=== PATIENT | female | born 1965 | race Hispanic/Latino ===

== ENCOUNTER 2016-10-26 15:39 | Emergency (ER) | payer MEDICAID ==
[2016-10-26 15:48] VITALS: BMI 19.5
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
[2016-10-26 16:10] LABS: ADD MANUAL DIFF? NO
[2016-10-26 16:29] LABS: BASO # 0.01 K/mm3 (0.0-2.0); BASO % 0.2 % (0.0-3.0); EOS % 0.2 % (1.5-5.0); GRAN # 3.42 (1.4-6.5); GRAN % 59.7 % (50.0-68.0); LYMPH # 1.9 (1.2-3.4); LYMPH % 32.9 % (22.0-35.0); MEAN CELL VOLUME 95.1 fL (80.0-105.0); MEAN CORPUSCULAR HEMOGLOBIN 33.2 pg (25.0-35.0); MEAN CORPUSCULAR HGB CONC 34.9 g/dl (31.0-37.0); MEAN PLATELET VOLUME 9.4 fl (7.0-11.0); MONO # 0.4 (0.1-0.6); PLATELET COUNT 331 10^3/uL (120.0-450.0); RED CELL DISTRIBUTION WIDTH 12.2 % (11.5-14.5); WHITE BLOOD COUNT 5.7 10^3/ul (4.5-11.0)
[2016-10-26 16:32] LABS: ALB/GLOB RATIO 1.4 (1.1-1.8); ALKALINE PHOSPHATASE 46 U/L (38-133); ALT/SGPT 21 U/L (7-56); AST/SGOT 23 U/L (15-39); BILIRUBIN,TOTAL 0.8 mg/dL (0.2-1.3); BLOOD UREA NITROGEN 10 mg/dL (7-21); CALCIUM 10.3 mg/dL (8.4-10.5); CARBON DIOXIDE 24 mmol/L (21-33); CHLORIDE 98 mmol/L (98-107); GFR AFRICAN-AMERICAN > 60; GLUCOSE,RANDOM 124 mg/dL (70-110); POTASSIUM 3.6 mmol/L (3.6-5.0); SODIUM 139 mmol/L (132-148); TOTAL PROTEIN 8.3 g/dL (5.8-8.3)
--- NOTE | 2016-10-26 17:57 | RAD ---
PROCEDURE: CHEST RADIOGRAPH, 1 VIEW HISTORY: psych eval COMPARISON: 12/15/2014 FINDINGS: LUNGS: The lungs are well inflated and clear. PLEURA: No pleural effusions or pneumothorax. CARDIOVASCULAR: Normal. OSSEOUS STRUCTURES: No significant abnormalities. VISUALIZED UPPER ABDOMEN: Normal. OTHER FINDINGS: None. IMPRESSION: No active pulmonary disease.
[2016-10-26 20:58] LABS: URINE BILIRUBIN NEGATIVE (NEGATIVE); URINE BLOOD TRACE-INTACT (NEGATIVE); URINE GLUCOSE (UA) NEGATIVE (NEGATIVE); URINE KETONE NEGATIVE (NEGATIVE); URINE LEUKOCYTE ESTERASE TRACE Leu/uL (NEGATIVE); URINE PROTEIN NEGATIVE mg/dL (<30 mg/dL); URINE UROBILINOGEN 0.2 E.U./dL (<1 E.U./dL)
[2016-10-26 21:00] LABS: URINE APPEARANCE CLEAR (CLEAR); URINE COLOR YELLOW (YELLOW)
[2016-10-26 21:04] LABS: URINE BACTERIA MOD (NEG)
[2016-10-27 00:50] VITALS: BP 105/70; PULSE 77; RESP 18; TEMP 98.2; O2SAT 98
--- NOTE | 2016-10-27 13:03 | CARD ---
APPROVED REPORT EKG Measurement Heart [id number] 150P10 [id number] <Conclusion> Normal sinus rhythm Normal ECG
== END 2016-10-27 01:10 | disposition short-term general hospital (02) ==
LOC: ED 15:39
DX: F31.9 Bipolar disorder, unspecified (principal); N39.0 Urinary tract infection, site not specified

== ENCOUNTER 2017-11-24 18:54 | Inpatient (IN) | payer MEDICAID ==
[2017-11-24 19:48] LABS: BASO # 0.02 K/mm3 (0.0-2.0); BASO % 0.3 % (0.0-3.0); EOS # 0.1 (0.0-0.7); EOS % 1.3 % (1.5-5.0); GRAN # 3.14 (1.4-6.5); GRAN % 46.9 % (50.0-68.0); LYMPH # 3.2 (1.2-3.4); LYMPH % 47.5 % (22.0-35.0); MEAN CELL VOLUME 101.4 fl (80.0-105.0); MEAN CORPUSCULAR HEMOGLOBIN 34.6 pg (25.0-35.0); MEAN CORPUSCULAR HGB CONC 34.1 g/dl (31.0-37.0); MEAN PLATELET VOLUME 9.1 fl (7.0-11.0); MONO # 0.3 (0.1-0.6); RBC 3.47 10^6/uL (3.5-6.1); RED CELL DISTRIBUTION WIDTH 12.6 % (11.5-14.5); WHITE BLOOD COUNT 6.7 10^3/ul (4.5-11.0)
[2017-11-24] MEDS ORDERED: Naloxone 2.4 MG in Sodium Chloride 0.9% 244 ML IV ONE (19:48)
--- NOTE | 2017-11-24 19:58 | ED PDOC ---
Arrival/HPI - General Chief Complaint: Substance Abuse Time Seen by Provider: 11/24/17 19:13 Historian: Patient, EMS - History of Present Illness Narrative History of Present Illness (Text): 11/24/17 19:56 52 year old female, with a history of substance abuse, presents to the Emergency department status post being found unresponsive at her residence. EMS gave the patient Narcan and she woke up. Patient is a poor historian and states she only feels nauseous. Patient denies any fever, chills, chest pain, shortness of breath, vomiting, diarrhea, urinary symptoms, back pain, neck pain , headache, dizziness, or any other complaints. Time/Duration: Prior to Arrival Symptom Onset: Sudden Symptom Course: Improving Context: Home Past Medical History - Provider Review Nursing Documentation Reviewed: Yes - Infectious Disease Hx of Infectious Diseases: None - Tetanus Immunization Tetanus Immunization: Unknown - Past Medical History Past Medical History: No Previous - Cardiac Hx Cardiac Disorders: No - Pulmonary Hx Bronchitis: Yes Hx Chronic Obstructive Pulmonary Disease (COPD): Yes Hx Emphysema: Yes - Neurological Hx Neurological Disorder: No - HEENT Hx HEENT Disorder: No - Renal Hx Renal Disorder: No - Endocrine/Metabolic Hx Endocrine Disorders: No - Hematological/Oncological Hx Hepatitis C: Yes - Integumentary Hx Dermatological Disorder: No - Musculoskeletal/Rheumatological Hx Arthritis: Yes Hx Osteoarthritis: Yes - Gastrointestinal Hx Gastroesophageal Reflux: Yes - Genitourinary/Gynecological Hx Genitourinary Disorders: No - Psychiatric Hx Anxiety: Yes Hx Bipolar Disorder: Yes Hx Depression: Yes Hx Substance Use: Yes ("I don't want to talk about it") - Surgical History Hx Cholecystectomy: Yes - Anesthesia Hx Anesthesia Reactions: Yes Hx Malignant Hyperthermia: No - Suicidal Assessment Feels Threatened In Home Enviroment: No Family/Social History - Physician Review Nursing Documentation Reviewed: Yes Family/Social History: Unknown Family HX Smoking Status: Heavy Smoker > 10 Cigarettes Daily Hx Alcohol Use: No Hx Substance Use: Yes ("I don't want to talk about it") Hx Substance Use Treatment: No Allergies/Home Meds Allergies/Adverse Reactions: Allergies aspirin Allergy (Mild, Verified 10/26/16 15:48) RASH Penicillins Allergy (Verified 10/26/16 15:48) RASH ibuprofen [From Motrin] Adverse Reaction (Verified 10/26/16 15:48) ANAPHYLAXIS NSAIDS (Non-Steroidal Anti-Inflamma Adverse Reaction (Verified 10/26/16 15:48) ANAPHYLAXIS quetiapine fumarate [From Seroquel] Adverse Reaction (Verified 10/26/16 15:48) SHORTNESS OF BREATH Review of Systems - Physician Review All systems were reviewed & negative as marked: Yes - Review of Systems Constitutional: absent: Fevers, Night Sweats Respiratory: absent: SOB Cardiovascular: absent: Chest Pain Gastrointestinal: Nausea. absent: Diarrhea, Vomiting Genitourinary Female: absent: Dysuria Musculoskeletal: absent: Back Pain, Neck Pain Neurological: absent: Headache, Dizziness Physical Exam Vital Signs Reviewed: Yes Vital Signs Pulse Resp BP Pulse Ox 11/25/17 00:33 89 18 118/81 100 11/24/17 22:17 81 18 122/71 100 11/24/17 21:47 83 18 116/79 100 11/24/17 20:30 80 18 108/75 100 - Systems Exam Head: Present: Atraumatic, Normocephalic Pupils: Present: PERRL Extroacular Muscles: Present: EOMI Conjunctiva: Present: Normal Mouth: Present: Moist Mucous Membranes Neck: Present: Normal Range of Motion Respiratory/Chest: Present: Clear to Auscultation, Good Air Exchange. No: Respiratory Distress, Accessory Muscle Use Cardiovascular: Present: Regular Rate and Rhythm, Normal S1, S2. No: Murmurs Abdomen: No: Tenderness, Distention, Peritoneal Signs Back: Present: Normal Inspection Upper Extremity: Present: Normal Inspection. No: Cyanosis, Edema Lower Extremity: Present: Normal Inspection. No: Edema Neurological: Present: GCS=15, CN II-XII Intact, Speech Normal Skin: Present: Warm, Dry, Normal Color. No: Rashes Psychiatric: Present: Oriented x 3, Lethargic Medical Decision Making ED Course and Treatment: 11/24/17 19:59 Impression: 52 year old female presents to the Emergency department status post being found unresponsive by EMS and waking up after receiving Narcan. Differential Diagnosis included but are not limited to: substance abuse Plan: -- Chest xray -- EKG -- Urinalysis -- Labs -- Narcan, Zofran -- Reassess and disposition Progress Notes: EKG: Ordered, reviewed, and independently interpreted the EKG. Rate : 87 BPM Rhythm : NSR Interpretation : No ST-segment elevations or depressions, no T-wave inversions, normal intervals. Comparison : No previous EKG for comparison. 11/25/17 00:08: Chest X-ray read and interpreted by me shows no acute disease. case d/w dr laird accepts to icu 11/25/17 05:46 - Lab Interpretations Lab Results: 11/24/17 19:35 11/24/17 19:35 Lab Results 11/24/17 22:39: Urine Opiates Screen Positive H, Urine Methadone Screen Negative , Ur Barbiturates Screen Negative, Ur Phencyclidine Scrn Negative, Ur Amphetamines Screen Negative, U Benzodiazepines Scrn Positive, U Oth Cocaine Metabols Negative, U Cannabinoids Screen Negative 11/24/17 22:39: Urine Color Yellow, Urine Appearance Clear, Urine pH 6.0, Ur Specific [place] 1.020, Urine Protein Negative, Urine Glucose (UA) Negative, Urine Ketones Negative, Urine Blood Negative, Urine Nitrate Negative, Urine Bilirubin Negative, Urine Urobilinogen 0.2, Ur Leukocyte Esterase Small H, Urine RBC Negative, Urine WBC 1 - 3, Ur Epithelial Cells 1 - 3, Urine Bacteria Trace 11/24/17 21:45: pCO2 47 H, pO2 122.0 H, HCO3 27.2, ABG pH 7.37, ABG Total CO2 28.6 H, ABG O2 Saturation 99.6 H, ABG O2 Content 14.8 L, ABG Base Excess 1.4, ABG Hemoglobin 11.3 L, ABG Carboxyhemoglobin 6.6 H, POC ABG HHb (Measured) 0.4, ABG Methemoglobin 1.3, ABG O2 Capacity 14.9 L, Hgb O2 Saturation 91.8 L, FiO2 28.0 11/24/17 19:35: Alcohol, Quantitative 98 H 11/24/17 19:35: Salicylates < 1 L, Acetaminophen < 10.0 L 11/24/17 19:35: Sodium 144, Potassium 3.1 L, Chloride 101, Carbon Dioxide 27, Anion Gap 19, BUN 6 L, Creatinine 0.5 L, Est GFR ( Amer) > 60, Est GFR ( Non-Af Amer) > 60, Random Glucose 122 H, Calcium 8.8, Magnesium 1.9, Total Bilirubin 0.2, AST 36, ALT 29, Alkaline Phosphatase 49, Total Protein 6.9, Albumin 4.2, Globulin 2.7, Albumin/Globulin Ratio 1.6 11/24/17 19:35: WBC 6.7, RBC 3.47 L, Hgb 12.0, Hct 35.2 L, MCV 101.4, MCH 34.6, MCHC 34.1, RDW 12.6, Plt Count 305, MPV 9.1, Gran % 46.9 L, Lymph % (Auto) 47.5 H, [place] % (Auto) 4.0, Eos % (Auto) 1.3 L, Baso % (Auto) 0.3, Gran # 3.14, Lymph # (Auto) 3.2, [place] # (Auto) 0.3, Eos # (Auto) 0.1, Baso # (Auto) 0.02 - RAD Interpretation Radiology Orders: 11/24/17 19:15 CHEST PORTABLE [RAD] Stat - Medication Orders Current Medication Orders: Chlorpromazine (Thorazine) 100 mg PO HS LONNIE PRN Reason: Protocol Last Admin: 11/25/17 03:00 Dose: 100 mg Behavioural Document 11/25/17 03:00 MHA (Rec: 11/25/17 03:27 MHA [id number]) Maintenance Maintenance Dose Yes Nonmedicinal Nonmedicinal Interventions Redirect Activity Give food/fluids Behavior Behavior for Medication: Anxiety Insomnia Heparin Sodium (Porcine) (Heparin) 5,000 units SC Q12 LONNIE PRN Reason: Protocol Folic Acid 1 mg/ Thiamine HCl 100 mg/ Multivitamins/Vitamin C 10 ml/ Dextrose 1 ,011.2 mls @ 100 mls/hr IV .Q10H7M [facility] Last Admin: 11/25/17 01:52 Dose: 100 mls/hr eMAR Start Stop Document 11/25/17 01:52 AD (Rec: 11/25/17 01:53 AD [id number]) Intravenous Solution Start Date 11/25/17 Start Time 01:53 Lamotrigine (Lamictal) 100 mg PO BID LONNIE PRN Reason: Protocol Nicotine (Nicoderm Cq) 1 patch TD DAILY [facility] Last Admin: 11/25/17 03:28 Dose: 1 patch MAR Transdermal Patch Site Document 11/25/17 03:28 MHA (Rec: 11/25/17 03:29 MHA [id number]) Transdermal Patch Site Transdermal Patch Site Right Outer Upper Arm Pantoprazole Sodium (Protonix Ec Tab) 40 mg PO 0600 LONNIE Trazodone HCl (Desyrel) 50 mg PO HS PRN PRN Reason: Insomnia Discontinued Medications Chlorpromazine (Thorazine) 100 mg PO HS LONNIE PRN Reason: Protocol Naloxone HCl 2.4 mg/ Sodium (Chloride) 250 mls @ 62.5 mls/hr IV .Q4H ONE PRN Reason: 0.6 MG/HR Stop: 11/24/17 23:47 Last Admin: 11/24/17 20:56 Dose: 62.5 mls/hr eMAR Start Stop Document 11/24/17 20:56 AD (Rec: 11/24/17 20:57 AD [id number]) Intravenous Solution Start Date 11/24/17 Start Time 20:57 Potassium Chloride (Potassium Chloride 20 Meq/100 Ml) 20 meq in 100 mls @ 50 mls/hr IVPB ONCE ONE Stop: 11/24/17 22:06 Last Admin: 11/24/17 20:57 Dose: 50 mls/hr eMAR Start Stop Document 11/24/17 20:57 AD (Rec: 11/24/17 20:57 AD [id number]) Intravenous Solution Start Date 11/24/17 Start Time 20:57 Naloxone HCl 2.4 mg/ Sodium (Chloride) 250 mls @ 62.5 mls/hr IV .Q4H ONE PRN Reason: 0.6 MG/HR Stop: 11/25/17 05:17 Last Admin: 11/25/17 01:51 Dose: 62.5 mls/hr eMAR Start Stop Document 11/25/17 01:51 AD (Rec: 11/25/17 01:51 AD [id number]) Intravenous Solution Start Date 11/25/17 Start Time 01:51 Ondansetron HCl (Zofran Inj) 4 mg IVP STAT STA Stop: 11/24/17 19:49 Last Admin: 11/24/17 20:05 Dose: 4 mg IVP Administration Document 11/24/17 20:05 AD (Rec: 11/24/17 20:57 AD [id number]) Charges for Administration # of IVP Administrations 1 Potassium Chloride (K-Dur 20 Meq Er Tab) 40 meq PO STAT STA Stop: 11/25/17 01:18 Last Admin: 11/25/17 01:31 Dose: 40 meq - Scribe Statement The provider has reviewed the documentation as recorded by the Susanne Skinner Attestation: All medical record entries made by the Susanne were at my direction and personally dictated by me. I have reviewed the chart and agree that the record accurately reflects my personal performance of the history, physical exam, medical decision making, and the department course for this patient. I have also personally directed, reviewed, and agree with the discharge instructions and disposition. Disposition/Present on Arrival - Present on Arrival Any Indicators Present on Arrival: No History of DVT/PE: No History of Uncontrolled Diabetes: No Urinary Catheter: No History of Decub. Ulcer: No History Surgical Site Infection Following: None - Disposition Have Diagnosis and Disposition been Completed?: Yes Diagnosis: Suicidal ideation, Overdose Disposition: HOSPITALIZED Disposition Time: 23:00 Condition: FAIR
[2017-11-24 20:02] LABS: ALB/GLOB RATIO 1.6 (1.1-1.8); ALBUMIN 4.2 g/dL (3.0-4.8); ALT/SGPT 29 U/L (7-56); AST/SGOT 36 U/L (14-36); BLOOD UREA NITROGEN 6 mg/dL (7-21); CALCIUM 8.8 mg/dL (8.4-10.5); GFR AFRICAN-AMERICAN > 60; GFR NON-AFRICAN AMERICAN > 60
[2017-11-24 20:03] LABS: ACETAMINOPHEN < 10.0 ug/ml (10.0-20.0); SALICYLATE < 1 mg/dL (2.0-20.0)
[2017-11-24 21:49] LABS: ARTERIAL BLOOD GAS HCO3 27.2 mmol/L (21-28); ARTERIAL BLOOD GAS HEMOGLOBIN 11.3 g/dL (11.7-17.4); ARTERIAL BLOOD GAS O2 CAPACITY 14.9 mL/dl (16-24); ARTERIAL BLOOD GAS O2 CONTENT 14.8 ML/dl (15-23); ARTERIAL BLOOD GAS O2 SAT 99.6 % (95-98); ARTERIAL BLOOD GAS PCO2 47 mm/Hg (35-45); ARTERIAL BLOOD GAS PH 7.37 (7.35-7.45); ARTERIAL BLOOD GAS TCO2 28.6 mmol.L (22-28)
[2017-11-24 22:44] LABS: URINE BILIRUBIN NEGATIVE (NEGATIVE); URINE BLOOD NEGATIVE (NEGATIVE); URINE GLUCOSE (UA) NEGATIVE (NEGATIVE); URINE LEUKOCYTE ESTERASE SMALL Leu/uL (NEGATIVE); URINE PROTEIN NEGATIVE mg/dL (<30 mg/dL); URINE UROBILINOGEN 0.2 E.U./dL (<1 E.U./dL)
[2017-11-24 22:45] LABS: URINE APPEARANCE CLEAR (CLEAR); URINE COLOR YELLOW (YELLOW)
[2017-11-24 22:47] LABS: URINE BACTERIA TRACE (NEG); URINE RBC NEGATIVE /hpf (0-2)
[2017-11-24 23:05] LABS: BARBITURATES, UR NEGATIVE (NEGATIVE); BENZODIAZEPINES, UR POSITIVE (NEGATIVE); OPIATES, UR POSITIVE (NEGATIVE); PHENCYCLIDINE, UR NEGATIVE (NEGATIVE)
--- NOTE | 2017-11-25 00:50 | CP.PCM.HP ---
<WolffNasir - Last Filed: 11/25/17 03:12> History of Present Illness - History of Present Illness History of Present Illness: Ms. Parra is a 52 year old female with a past medical history significant for depression, bipolar disorder, anxiety, heroin abuse, alcohol abuse, and tobacco abuse who was brought in by ambulance after she was found unresponsive at her home. Patient currently alert, oriented and able to provide HPI information. Patient reports that earlier today she was visited by her son, who also suffers from depression, and became depressed with suicidal ideation after he left. She endorses that after he left, she snorted a small amount of heroin and consumed 12 50ml bottles of vodka within a few hours. Afterwards, she does not remember anything until waking up in the ambulance. She endorses that she is still depressed and with suicidal ideation, stating "I think about killing myself almost every minute of every day". Currently she denies any fevers, chills, headache, chest pain, palpitations, SOB, cough, wheezing, abdominal pain, N/V/D/ C, changes in urine output, skin changes, or any numbness/tingling/weakness of any extremity. PMH: As stated above PSH: Denies Family History: Non-contributory Social History: Current smoker with approximately 40 year pack smoking history, drinks alcohol 1-2 times per week with intermittent binges, and intermittent heroin use (only intranasal); Unemployed on SSI; Lives alone in [place] Allergies: NSAIDs, ASA and PCN Home Medications: As per MAR Present on Admission - Present on Admission Any Indicators Present on Admission: No Review of Systems - Review of Systems Review of Systems: As stated in HPI, otherwise negative Past Patient History - Infectious Disease Hx of Infectious Diseases: None - Tetanus Immunizations Tetanus Immunization: Unknown - Past Social History Smoking Status: Heavy Smoker > 10 Cigarettes Daily - CARDIAC Hx Cardiac Disorders: No - PULMONARY Hx Bronchitis: Yes Hx Chronic Obstructive Pulmonary Disease (COPD): Yes Hx Emphysema: Yes - NEUROLOGICAL Hx Neurological Disorder: No - HEENT Hx HEENT Problems: No - RENAL Hx Chronic Kidney Disease: No - ENDOCRINE/METABOLIC Hx Endocrine Disorders: No - HEMATOLOGICAL/ONCOLOGICAL Hx Hepatitis C: Yes - INTEGUMENTARY Hx Dermatological Problems: No - MUSCULOSKELETAL/RHEUMATOLOGICAL Hx Arthritis: Yes Hx Osteoarthritis: Yes - GASTROINTESTINAL Hx Gastroesophageal Reflux: Yes - GENITOURINARY/GYNECOLOGICAL Hx Genitourinary Disorders: No - PSYCHIATRIC Hx Anxiety: Yes Hx Bipolar Disorder: Yes Hx Depression: Yes Hx Substance Use: Yes ("I don't want to talk about it") - SURGICAL HISTORY Hx Cholecystectomy: Yes - ANESTHESIA Hx Anesthesia Reactions: Yes Hx Malignant Hyperthermia: No Meds Allergies/Adverse Reactions: Allergies Allergy/AdvReac Type Severity Reaction Status Date / Time aspirin Allergy Mild RASH Verified 10/26/16 15:48 Penicillins Allergy RASH Verified 10/26/16 15:48 ibuprofen [From Motrin] AdvReac ANAPHYLAXIS Verified 10/26/16 15:48 NSAIDS (Non-Steroidal AdvReac ANAPHYLAXIS Verified 10/26/16 15:48 Anti-Inflamma quetiapine fumarate AdvReac SHORTNESS Verified 10/26/16 15:48 [From Seroquel] OF BREATH Physical Exam - Constitutional Appears: Non-toxic, No Acute Distress - Head Exam Head Exam: ATRAUMATIC, NORMOCEPHALIC - Eye Exam Eye Exam: EOMI, Normal appearance, PERRL. absent: Conjunctival injection, Nystagmus, Periorbital swelling, Periorbital tenderness, Scleral icterus Pupil Exam: NORMAL ACCOMODATION, PERRL. absent: Fixed, Irregular, Miosis, Mydriatic, Unequal - ENT Exam ENT Exam: Mucous Membranes Moist, Normal Exam - Neck Exam Neck exam: Positive for: Full Rom, Normal Inspection. Negative for: Lymphadenopathy, Meningismus, Tenderness, Thyromegaly - Respiratory Exam Respiratory Exam: Clear to Auscultation Bilateral, NORMAL BREATHING PATTERN. absent: Accessory Muscle Use, Chest Wall Tenderness, Decreased Breath Sounds, Prolonged Expiratory Phase, Rales, Rhonchi, Wheezes, Respiratory Distress, Stridor - Cardiovascular Exam Cardiovascular Exam: REGULAR RHYTHM, RRR, +S1, +S2. absent: Bradycardia, Tachycardia, Clicks, Diastolic murmur, Gallop, Irregular Rhythm, JVD, Rubs, +S4 , Systolic Murmur - GI/Abdominal Exam GI & Abdominal Exam: Normal Bowel Sounds, Soft. absent: Bruit, Diminished Bowel Sounds, Distended, Firm, Guarding, Hernia, Hyperactive Bowel Sounds, Hypoactive Bowel Sounds, Mass, Organomegaly, Pulsatile Mass, Rebound, Rigid, Tenderness - Extremities Exam Extremities exam: Positive for: full ROM, normal capillary refill, normal inspection, pedal pulses present. Negative for: calf tenderness, joint swelling , pedal edema, tenderness - Back Exam Back exam: NORMAL INSPECTION - Neurological Exam Neurological exam: Alert, CN II-XII Intact, Oriented x3 - Psychiatric Exam Psychiatric exam: Depressed, Suicidal Ideation - Skin Skin Exam: Dry, Intact, Normal Color, Warm Results - Vital Signs Recent Vital Signs: Last Vital Signs Temp Pulse 89 11/25/17 00:33 Resp 18 11/25/17 00:33 BP 118/81 11/25/17 00:33 Pulse Ox 100 11/25/17 00:33 - Labs Result Diagrams: 11/24/17 19:35 11/24/17 19:35 Labs: Laboratory Results - last 24 hr 11/24/17 11/24/17 11/24/17 19:35 19:35 19:35 WBC 6.7 RBC 3.47 L Hgb 12.0 Hct 35.2 L MCV 101.4 MCH 34.6 MCHC 34.1 RDW 12.6 Plt Count 305 MPV 9.1 Gran % 46.9 L Lymph % (Auto) 47.5 H [place] % (Auto) 4.0 Eos % (Auto) 1.3 L Baso % (Auto) 0.3 Gran # 3.14 Lymph # (Auto) 3.2 [place] # (Auto) 0.3 Eos # (Auto) 0.1 Baso # (Auto) 0.02 pCO2 pO2 HCO3 ABG pH ABG Total CO2 ABG O2 Saturation ABG O2 Content ABG Base Excess ABG Hemoglobin ABG Carboxyhemoglobin POC ABG HHb (Measured) ABG Methemoglobin ABG O2 Capacity Hgb O2 Saturation FiO2 Sodium 144 Potassium 3.1 L Chloride 101 Carbon Dioxide 27 Anion Gap 19 BUN 6 L Creatinine 0.5 L Est GFR ( Amer) > 60 Est GFR (Non-Af Amer) > 60 Random Glucose 122 H Calcium 8.8 Magnesium 1.9 Total Bilirubin 0.2 AST 36 ALT 29 Alkaline Phosphatase 49 Total Protein 6.9 Albumin 4.2 Globulin 2.7 Albumin/Globulin Ratio 1.6 Urine Color Urine Appearance Urine pH Ur Specific [place] Urine Protein Urine Glucose (UA) Urine Ketones Urine Blood Urine Nitrate Urine Bilirubin Urine Urobilinogen Ur Leukocyte Esterase Urine RBC Urine WBC Ur Epithelial Cells Urine Bacteria Salicylates < 1 L Urine Opiates Screen Urine Methadone Screen Acetaminophen < 10.0 L Ur Barbiturates Screen Ur Phencyclidine Scrn Ur Amphetamines Screen U Benzodiazepines Scrn U Oth Cocaine Metabols U Cannabinoids Screen Alcohol, Quantitative 11/24/17 11/24/17 11/24/17 19:35 21:45 22:39 WBC RBC Hgb Hct MCV MCH MCHC RDW Plt Count MPV Gran % Lymph % (Auto) [place] % (Auto) Eos % (Auto) Baso % (Auto) Gran # Lymph # (Auto) [place] # (Auto) Eos # (Auto) Baso # (Auto) pCO2 47 H pO2 122.0 H HCO3 27.2 ABG pH 7.37 ABG Total CO2 28.6 H ABG O2 Saturation 99.6 H ABG O2 Content 14.8 L ABG Base Excess 1.4 ABG Hemoglobin 11.3 L ABG Carboxyhemoglobin 6.6 H POC ABG HHb (Measured) 0.4 ABG Methemoglobin 1.3 ABG O2 Capacity 14.9 L Hgb O2 Saturation 91.8 L FiO2 28.0 Sodium Potassium Chloride Carbon Dioxide Anion Gap BUN Creatinine Est GFR ( Amer) Est GFR (Non-Af Amer) Random Glucose Calcium Magnesium Total Bilirubin AST ALT Alkaline Phosphatase Total Protein Albumin Globulin Albumin/Globulin Ratio Urine Color Yellow Urine Appearance Clear Urine pH 6.0 Ur Specific [place] 1.020 Urine Protein Negative Urine Glucose (UA) Negative Urine Ketones Negative Urine Blood Negative Urine Nitrate Negative Urine Bilirubin Negative Urine Urobilinogen 0.2 Ur Leukocyte Esterase Small H Urine RBC Negative Urine WBC 1 - 3 Ur Epithelial Cells 1 - 3 Urine Bacteria Trace Salicylates Urine Opiates Screen Urine Methadone Screen Acetaminophen Ur Barbiturates Screen Ur Phencyclidine Scrn Ur Amphetamines Screen U Benzodiazepines Scrn U Oth Cocaine Metabols U Cannabinoids Screen Alcohol, Quantitative 98 H 11/24/17 22:39 WBC RBC Hgb Hct MCV MCH MCHC RDW Plt Count MPV Gran % Lymph % (Auto) [place] % (Auto) Eos % (Auto) Baso % (Auto) Gran # Lymph # (Auto) [place] # (Auto) Eos # (Auto) Baso # (Auto) pCO2 pO2 HCO3 ABG pH ABG Total CO2 ABG O2 Saturation ABG O2 Content ABG Base Excess ABG Hemoglobin ABG Carboxyhemoglobin POC ABG HHb (Measured) ABG Methemoglobin ABG O2 Capacity Hgb O2 Saturation FiO2 Sodium Potassium Chloride Carbon Dioxide Anion Gap BUN Creatinine Est GFR ( Amer) Est GFR (Non-Af Amer) Random Glucose Calcium Magnesium Total Bilirubin AST ALT Alkaline Phosphatase Total Protein Albumin Globulin Albumin/Globulin Ratio Urine Color Urine Appearance Urine pH Ur Specific [place] Urine Protein Urine Glucose (UA) Urine Ketones Urine Blood Urine Nitrate Urine Bilirubin Urine Urobilinogen Ur Leukocyte Esterase Urine RBC Urine WBC Ur Epithelial Cells Urine Bacteria Salicylates Urine Opiates Screen Positive H Urine Methadone Screen Negative Acetaminophen Ur Barbiturates Screen Negative Ur Phencyclidine Scrn Negative Ur Amphetamines Screen Negative U Benzodiazepines Scrn Positive U Oth Cocaine Metabols Negative U Cannabinoids Screen Negative Alcohol, Quantitative - EKG Data EKG Interpreted by: ER Physician EKG shows normal: Sinus rhythm Rate: Normal Assessment & Plan - Assessment and Plan (Free Text) Assessment: 52 year old female with a past medical history significant for depression, bipolar disorder, anxiety, heroin abuse, alcohol abuse, and tobacco abuse who was brought in by ambulance after she was found unresponsive at her home. Patient currently in ICU on Narcan drip. Plan: 1. Opiate Overdose -Currently without need for respiratory support -Narcan drip at 0.6mg/hr -Supplemental oxygen via NC at 2 liters/min -Maintain HOB above 30 degrees -Holding home Klonipin -Cessation recommendations provided 2. Alcohol Abuse/Withdrawal -Alcohol serum elevated at 98 -Banana bag at 100mls/hr -CIWA assessments Q4 -Seizure, fall and aspiration precautions -Cessation recommendations provided 3. Suicidal Ideation -1:1 Observation -Psychiatry consulted, all recommendations appreciated 4. Hypokalemia -Potassium low at 3.1 on admission -Received one 20meq K-Deonte IV in ED -Additional 40meq PO provided -Repeat CMP in AM 5. History of Bipolar Disorder -Continue home Lamictal and Thorazine 6. History of Insomnia -Continue home Trazadone PRN 7. History of Tobacco Abuse -Nicotine patch daily -Cessation recommendations provided GI Prophylaxis: Protonix DVT Prophylaxis: Heparin Diet: Regular Patient seen and case discussed with attending, Dr. Awan. Conner PGY1 - Date & Time Date: 11/25/17 Time: 00:49 Decision To Admit - Pt Status Changed To: Hospital Disposition Of: Inpatient Admission - Admit Certification Admit to Inpatient:: After my assessment, the patient will require hospitalization for at least two midnights. This is because of the severity of symptoms shown, intensity of services needed, and/or the medical risk in this patient being treated as an outpatient. - . Bed Request Type: Critical Care <Louis Alvarez - Last Filed: 11/25/17 04:51> Results - Vital Signs Recent Vital Signs: Last Vital Signs Temp 97.9 F 11/25/17 02:34 Pulse 94 H 11/25/17 03:40 Resp 19 11/25/17 03:30 BP 123/74 11/25/17 02:34 Pulse Ox 100 11/25/17 03:40 - Labs Result Diagrams: 11/24/17 19:35 11/24/17 19:35 Attending/Attestation - Attestation I have personally seen and examined this patient.: Yes I have fully participated in the care of the patient.: Yes I have reviewed all pertinent clinical information: Yes Notes (Text): 11/25/17 04:46 I agree with the above mentioned note and exam by the resident with the addition /exception of the followin52 y/o female with a PMHx Depression, Bipolar, polysubstance abuse (Etoh/heroin ) presented to the ED after being brought in by EMS secondary to decreased responsiveness. Patient was given a dose of narcan in the field with good response causing her to be more alert; in the ER she required a narcan drip. She was AAOX3 and able to answer my questions appropriately; relayed that she drank an entire bottle of Vodka and snorted a "line" of heroin secondary to feeling depressed about issues ongoing with her son. She did not want to elaborate on the specifics but did admit that this was a suicide attempt. Placed on 1:1 observation continue narcan drip [facility] protocol for etoh withdrawal psych consult case discussed with Dr. Espinoza in the ED labs and images reviewed total time of care: 40 minutes
[2017-11-25] MEDS ORDERED: Potassium Chloride 20 mEq ER Tab PO STA (01:17)
[2017-11-25] MEDS ORDERED: Naloxone 2.4 MG in Sodium Chloride 0.9% 244 ML IV ONE (01:18)
[2017-11-25] MEDS: Folic Acid 1 MG, Thiamine 100 MG, Multivitamin (MVI) 10 ML in Dextrose 5% In Water 1,00... IV SCH ×2 (01:52→11:10)
[2017-11-25 03:10] VITALS: BMI 23.5
[2017-11-25] MEDS ORDERED: Pantoprazole 40 mg EC Tab PO SCH (06:00)
[2017-11-25 06:48] LABS: BASO # 0.02 K/mm3 (0.0-2.0); BASO % 0.2 % (0.0-3.0); EOS % 0.2 % (1.5-5.0); GRAN # 9.47 (1.4-6.5); GRAN % 78.5 % (50.0-68.0); HEMOGLOBIN 12.2 g/dL (12.0-16.0); LYMPH # 1.9 (1.2-3.4); MEAN CELL VOLUME 102.5 fl (80.0-105.0); MEAN CORPUSCULAR HEMOGLOBIN 34.1 pg (25.0-35.0); MEAN CORPUSCULAR HGB CONC 33.2 g/dl (31.0-37.0); MEAN PLATELET VOLUME 9.3 fl (7.0-11.0); MONO # 0.6 (0.1-0.6); MONO % 5.1 % (1.0-6.0); RBC 3.58 10^6/uL (3.5-6.1); RED CELL DISTRIBUTION WIDTH 12.6 % (11.5-14.5); WHITE BLOOD COUNT 12.1 10^3/ul (4.5-11.0)
[2017-11-25 07:18] LABS: ALB/GLOB RATIO 1.6 (1.1-1.8); ALT/SGPT 23 U/L (7-56); AST/SGOT 28 U/L (14-36); BLOOD UREA NITROGEN 5 mg/dL (7-21); GFR AFRICAN-AMERICAN > 60; GFR NON-AFRICAN AMERICAN > 60
--- NOTE | 2017-11-25 08:16 | RAD ---
HISTORY: Overdose. COMPARISON: 10/26/2016 FINDINGS: LUNGS: No active pulmonary disease. PLEURA: No significant pleural effusion identified, no pneumothorax apparent. CARDIOVASCULAR: Normal. OSSEOUS STRUCTURES: No significant abnormalities. VISUALIZED UPPER ABDOMEN: Normal. OTHER FINDINGS: None. IMPRESSION: No active disease. No significant interval change compared to the prior examination(s).
--- NOTE | 2017-11-25 09:35 | CARD ---
APPROVED REPORT EKG Measurement Heart [id number] CT 142P1 [id number] <Conclusion> Normal sinus rhythm Normal ECG
--- NOTE | 2017-11-25 10:44 | CP.CCUPN ---
<Leighton Adam - Last Filed: 11/25/17 10:39> CCU Subjective - Physician Review Subjective (Free Text): 11/25/17 10:39 Patient seen and examined at bedside in the ICU. No acute issues reported since admission. Narcan drip finished and turned off at 0500. Patient reports still feeling tired, and is fatigued appearing. Remains on 1:1 for suicide precaution, and reaffirms SI when questioned, stating "I think about it all the time." Denies chest pain, shortness of breath, nausea, emesis, palpitations. Pending Psych eval for SI and possible admission to psych floor after medically cleared. CCU Objective - Vital Signs / Intake & Output Vital Signs (Last 4 hours): Vital Signs Temp Pulse Resp BP Pulse Ox 11/25/17 10:20 96 H 20 100 11/25/17 10:10 93 H 19 100 11/25/17 10:00 99 H 18 100 11/25/17 09:50 89 15 100 11/25/17 09:40 87 21 100 11/25/17 09:30 88 20 100 11/25/17 09:20 92 H 20 100 11/25/17 09:13 93 H 21 103/55 L 100 11/25/17 09:10 95 H 17 100 11/25/17 09:00 92 H 17 89/47 L 100 11/25/17 08:50 97 H 15 100 11/25/17 08:40 96 H 20 100 11/25/17 08:30 101 H 16 100 11/25/17 08:20 96 H 21 100 11/25/17 08:10 93 H 38 H 100 11/25/17 08:00 98.3 F 86 14 106/70 100 11/25/17 07:50 91 H 12 98 11/25/17 07:40 89 13 100 11/25/17 07:30 89 14 100 11/25/17 07:25 88 11/25/17 07:20 93 H 100 11/25/17 07:10 86 14 100 11/25/17 07:00 80 15 93/50 L 100 11/25/17 06:50 88 15 99 11/25/17 06:40 81 13 100 Intake and Output (Last 8hrs): Intake & Output 11/24/17 11/25/17 11/25/17 22:59 06:59 14:59 Intake Total 1000 750 Output Total 600 Balance 400 750 Weight 70.171 kg Intake: IV 1000 400 Banana Bag 400 Right Forearm 500 Right Wrist 500 Oral 350 Output: Urine 600 Urine, Voided 600 Other: Voiding Method Bedside Commode - Physical Exam Head: Positive for: Atraumatic, Normocephalic Pupils: Negative for: Pinpoint Extroacular Muscles: Positive for: EOMI. Negative for: Gaze Palsy, Entrapment Conjunctiva: Positive for: Normal. Negative for: Injected, Icteric Mouth: Positive for: Moist Mucous Membranes, Normal Lips, Normal Tounge, Normal Teeth. Negative for: Dry Nose (External): Positive for: Atraumatic. Negative for: Abrasion, Laceration, Lesions Neck: Positive for: Normal Range of Motion. Negative for: JVD Respiratory/Chest: Positive for: Clear to Auscultation, Good Air Exchange. Negative for: Respiratory Distress, Accessory Muscle Use, Wheezes, Decreased Breath Sounds, Rales, Rhonchi, Tachypneic, Tender to Palpation Cardiovascular: Positive for: Regular Rate and Rhythm, Normal S1, S2. Negative for: Murmurs, Irregular Rhythm, Tachycardic, Bradycardic Abdomen: Positive for: Normal Bowel Sounds. Negative for: Tenderness, Distention, Peritoneal Signs, Mass/Organomegaly Upper Extremity: Positive for: Normal Inspection, Normal ROM, NORMAL PULSES. Negative for: Cyanosis, Edema, Tenderness, Swelling, Erythema, Deformity Lower Extremity: Positive for: Normal Inspection, NORMAL PULSES, Normal ROM. Negative for: Edema, CALF TENDERNESS, Cyanosis, Tenderness, Swelling, Erythema, Deformity Neurological: Positive for: GCS=15, Speech Normal, Motor Func Grossly Intact, Normal Sensory Function Skin: Positive for: Warm, Dry, Normal Color. Negative for: Rashes Psychiatric: Positive for: Oriented x 3, Normal Insight, Normal Concentration, Suicidal Ideation, Lethargic (awake but lethargic, able to remain awake through interview and exam). Negative for: Normal Affect (flat affect) - Medications Active Medications: Active Medications Generic Name Dose Route Start Last Admin Trade Name Freq PRN Reason Stop Dose Admin Acetaminophen 650 mg 11/25/17 10:05 11/25/17 10:19 Tylenol 325mg Tab PO 650 mg Q6H PRN Administration Headache Chlorpromazine 100 mg 11/25/17 01:20 11/25/17 03:00 Thorazine PO 100 mg HS LONNIE Administration Protocol Heparin Sodium (Porcine) 5,000 units 11/25/17 10:00 11/25/17 09:05 Heparin SC 5,000 units Q12 LONNIE Administration Protocol Folic Acid 1 mg/ Thiamine HCl 1,011.2 mls @ 100 mls/hr 11/25/17 00:45 01:52 100 mg/ Multivitamins/Vitamin IV 100 mls/hr C 10 ml/ Dextrose .Q10H7M LONNIE Administration Lamotrigine 100 mg 11/25/17 10:00 11/25/17 09:06 Lamictal PO 100 mg BID LONNIE Administration Protocol Nicotine 1 patch 11/25/17 10:00 11/25/17 09:04 Nicoderm Cq TD Not Given DAILY LONNIE Pantoprazole Sodium 40 mg 11/25/17 06:00 11/25/17 09:07 Protonix Ec Tab PO 40 mg 0600 LONNIE Administration Trazodone HCl 50 mg 11/25/17 00:50 Desyrel PO HS PRN Insomnia - Patient Studies Lab Studies: Lab Studies 11/25/17 11/25/17 11/25/17 Range/Units 05:50 05:50 05:50 WBC 12.1 H D (4.5-11.0) 10^3/ul RBC 3.58 (3.5-6.1) 10^6/uL Hgb 12.2 (12.0-16.0) g/dL Hct 36.7 (36.0-48.0) % MCV 102.5 (80.0-105.0) fl MCH 34.1 (25.0-35.0) pg MCHC 33.2 (31.0-37.0) g/dl RDW 12.6 (11.5-14.5) % Plt Count 308 (120.0-450.0) 10^3/uL MPV 9.3 (7.0-11.0) fl Gran % 78.5 H (50.0-68.0) % Lymph % (Auto) 16.0 L (22.0-35.0) % [place] % (Auto) 5.1 (1.0-6.0) % Eos % (Auto) 0.2 L (1.5-5.0) % Baso % (Auto) 0.2 (0.0-3.0) % Gran # 9.47 H (1.4-6.5) Lymph # (Auto) 1.9 (1.2-3.4) [place] # (Auto) 0.6 (0.1-0.6) Eos # (Auto) 0.0 (0.0-0.7) Baso # (Auto) 0.02 (0.0-2.0) K/mm3 APTT 26.1 (25.1-36.5) Seconds Sodium 144 (132-148) mmol/L Potassium 4.5 (3.6-5.0) mmol/L Chloride 105 (98-107) mmol/L Carbon Dioxide 31 (21-33) mmol/L Anion Gap 13 (10-20) BUN 5 L (7-21) mg/dL Creatinine 0.5 L (0.7-1.2) mg/dl Est GFR ( Amer) > 60 Est GFR (Non-Af Amer) > 60 Random Glucose 103 (70-110) mg/dL Calcium 9.0 (8.4-10.5) mg/dL Total Bilirubin 0.3 (0.2-1.3) mg/dL AST 28 (14-36) U/L ALT 23 (7-56) U/L Alkaline Phosphatase 55 (38-126) U/L Total Protein 6.6 (5.8-8.3) g/dL Albumin 4.0 (3.0-4.8) g/dL Globulin 2.6 gm/dL Albumin/Globulin Ratio 1.6 (1.1-1.8) Laboratory Results - last 24 hr 11/25/17 11/25/17 11/25/17 05:50 05:50 05:50 WBC 12.1 H D RBC 3.58 Hgb 12.2 Hct 36.7 MCV 102.5 MCH 34.1 MCHC 33.2 RDW 12.6 Plt Count 308 MPV 9.3 Gran % 78.5 H Lymph % (Auto) 16.0 L [place] % (Auto) 5.1 Eos % (Auto) 0.2 L Baso % (Auto) 0.2 Gran # 9.47 H Lymph # (Auto) 1.9 [place] # (Auto) 0.6 Eos # (Auto) 0.0 Baso # (Auto) 0.02 APTT 26.1 Sodium 144 Potassium 4.5 Chloride 105 Carbon Dioxide 31 Anion Gap 13 BUN 5 L Creatinine 0.5 L Est GFR ( Amer) > 60 Est GFR (Non-Af Amer) > 60 Random Glucose 103 Calcium 9.0 Total Bilirubin 0.3 AST 28 ALT 23 Alkaline Phosphatase 55 Total Protein 6.6 Albumin 4.0 Globulin 2.6 Albumin/Globulin Ratio 1.6 Review of Systems - Review of Systems All systems: reviewed and no additional remarkable complaints except (as per HPI ) Critical Care Progress Note - Nutrition Nutrition: Nutrition Category Date Time Status Regular Diet [DIET] Diets 11/25/17 Breakfast Ordered Assessment/Plan - Assessment and Plan (Free Text) Assessment: This is a 52 yo F with PMH of depression, bipolar disorder, anxiety, heroin abuse, alcohol abuse, and tobacco abuse who was brought in by ambulance after she was found unresponsive at her home. She was found to have abused alcohol and heroin, reportedly in an attempt to self-harm. She was admitted to the ICU for monitoring while on a Narcan drip, which has now finished. Plan: Neuro: -lethargic but awake, oriented to self/location/condition -moving extremities spontaneously, feeding self at time of exam -maintain normothermia -seizure precautions Cardio: -RRR, hemodynamically stable -borderline tachycardia overnight, likely 2/2 withdrawal from alcohol and heroin Pulm: -no respiratory support required since admission, satting well and protecting airway -aspiration precautions -Nicotine patch given hx of tobacco abuse GI: -Regular diet -protonix for ppx Renal: -monitor and replete electrolytes as needed, K repleted overnight, 4.5 today -making urine, stable Cr (0.5), no signs of NIKA Heme: -Hgb stable at 12.2 -Heparin 5000 units SC q12 for DVT ppx ID: -leukocytosis, WBCs increased to 12.1 from 6.7, possibly stress rxn from withdrawal as pt remains afebrile -UA obtained, not indicative of UTI Psych: -still endorses SI -remains on 1:1 for suicide precaution -Psych consulted, appreciate their recs Dispo: STABLE, transfer to Med-surg, pending Psych eval for possible Psych admit due to SI FEN: Regular diet Access: Peripheral IV Consults: Psych Ppx: protonix for GI, Heparin SC for DVT Patient seen, reviewed, and discussed with attending, Dr. Vazquez <Rolly Vazquez - Last Filed: 11/25/17 11:21> CCU Objective - Vital Signs / Intake & Output Vital Signs (Last 4 hours): Vital Signs Temp Pulse Resp BP Pulse Ox 11/25/17 10:20 96 H 20 100 11/25/17 10:10 93 H 19 100 11/25/17 10:00 99 H 18 100 11/25/17 09:50 89 15 100 11/25/17 09:40 87 21 100 11/25/17 09:30 88 20 100 11/25/17 09:20 92 H 20 100 11/25/17 09:13 93 H 21 103/55 L 100 11/25/17 09:10 95 H 17 100 11/25/17 09:00 92 H 17 89/47 L 100 11/25/17 08:50 97 H 15 100 11/25/17 08:40 96 H 20 100 11/25/17 08:30 101 H 16 100 11/25/17 08:20 96 H 21 100 11/25/17 08:10 93 H 38 H 100 11/25/17 08:00 98.3 F 86 14 106/70 100 11/25/17 07:50 91 H 12 98 11/25/17 07:40 89 13 100 11/25/17 07:30 89 14 100 11/25/17 07:25 88 11/25/17 07:20 93 H 100 Intake and Output (Last 8hrs): Intake & Output 11/24/17 11/25/17 11/25/17 22:59 06:59 14:59 Intake Total 1000 750 Output Total 600 Balance 400 750 Weight 154 lb 11.2 oz Intake: IV 1000 400 Banana Bag 400 Right Forearm 500 Right Wrist 500 Oral 350 Output: Urine 600 Urine, Voided 600 Other: Voiding Method Bedside Commode - Medications Active Medications: Active Medications Generic Name Dose Route Start Last Admin Trade Name Freq PRN Reason Stop Dose Admin Acetaminophen 650 mg 11/25/17 10:05 11/25/17 10:19 Tylenol 325mg Tab PO 650 mg Q6H PRN Administration Headache Chlorpromazine 100 mg 11/25/17 01:20 11/25/17 03:00 Thorazine PO 100 mg HS LONNIE Administration Protocol Heparin Sodium (Porcine) 5,000 units 11/25/17 10:00 11/25/17 09:05 Heparin SC 5,000 units Q12 LONNIE Administration Protocol Folic Acid 1 mg/ Thiamine HCl 1,011.2 mls @ 100 mls/hr 11/25/17 00:45 11:10 100 mg/ Multivitamins/Vitamin IV 100 mls/hr C 10 ml/ Dextrose .Q10H7M LONNIE Administration Lamotrigine 100 mg 11/25/17 10:00 11/25/17 09:06 Lamictal PO 100 mg BID LONNIE Administration Protocol Nicotine 1 patch 11/25/17 10:00 11/25/17 09:04 Nicoderm Cq TD Not Given DAILY LONNIE Pantoprazole Sodium 40 mg 11/25/17 06:00 11/25/17 09:07 Protonix Ec Tab PO 40 mg 0600 LONNIE Administration Trazodone HCl 50 mg 11/25/17 00:50 Desyrel PO HS PRN Insomnia - Patient Studies Lab Studies: Lab Studies 11/25/17 11/25/17 11/25/17 Range/Units 05:50 05:50 05:50 WBC 12.1 H D (4.5-11.0) 10^3/ul RBC 3.58 (3.5-6.1) 10^6/uL Hgb 12.2 (12.0-16.0) g/dL Hct 36.7 (36.0-48.0) % MCV 102.5 (80.0-105.0) fl MCH 34.1 (25.0-35.0) pg MCHC 33.2 (31.0-37.0) g/dl RDW 12.6 (11.5-14.5) % Plt Count 308 (120.0-450.0) 10^3/uL MPV 9.3 (7.0-11.0) fl Gran % 78.5 H (50.0-68.0) % Lymph % (Auto) 16.0 L (22.0-35.0) % [place] % (Auto) 5.1 (1.0-6.0) % Eos % (Auto) 0.2 L (1.5-5.0) % Baso % (Auto) 0.2 (0.0-3.0) % Gran # 9.47 H (1.4-6.5) Lymph # (Auto) 1.9 (1.2-3.4) [place] # (Auto) 0.6 (0.1-0.6) Eos # (Auto) 0.0 (0.0-0.7) Baso # (Auto) 0.02 (0.0-2.0) K/mm3 APTT 26.1 (25.1-36.5) Seconds Sodium 144 (132-148) mmol/L Potassium 4.5 (3.6-5.0) mmol/L Chloride 105 (98-107) mmol/L Carbon Dioxide 31 (21-33) mmol/L Anion Gap 13 (10-20) BUN 5 L (7-21) mg/dL Creatinine 0.5 L (0.7-1.2) mg/dl Est GFR ( Amer) > 60 Est GFR (Non-Af Amer) > 60 Random Glucose 103 (70-110) mg/dL Calcium 9.0 (8.4-10.5) mg/dL Total Bilirubin 0.3 (0.2-1.3) mg/dL AST 28 (14-36) U/L ALT 23 (7-56) U/L Alkaline Phosphatase 55 (38-126) U/L Total Protein 6.6 (5.8-8.3) g/dL Albumin 4.0 (3.0-4.8) g/dL Globulin 2.6 gm/dL Albumin/Globulin Ratio 1.6 (1.1-1.8) Laboratory Results - last 24 hr 11/25/17 11/25/17 11/25/17 05:50 05:50 05:50 WBC 12.1 H D RBC 3.58 Hgb 12.2 Hct 36.7 MCV 102.5 MCH 34.1 MCHC 33.2 RDW 12.6 Plt Count 308 MPV 9.3 Gran % 78.5 H Lymph % (Auto) 16.0 L [place] % (Auto) 5.1 Eos % (Auto) 0.2 L Baso % (Auto) 0.2 Gran # 9.47 H Lymph # (Auto) 1.9 [place] # (Auto) 0.6 Eos # (Auto) 0.0 Baso # (Auto) 0.02 APTT 26.1 Sodium 144 Potassium 4.5 Chloride 105 Carbon Dioxide 31 Anion Gap 13 BUN 5 L Creatinine 0.5 L Est GFR ( Amer) > 60 Est GFR (Non-Af Amer) > 60 Random Glucose 103 Calcium 9.0 Total Bilirubin 0.3 AST 28 ALT 23 Alkaline Phosphatase 55 Total Protein 6.6 Albumin 4.0 Globulin 2.6 Albumin/Globulin Ratio 1.6 Critical Care Progress Note - Nutrition Nutrition: Nutrition Category Date Time Status Regular Diet [DIET] Diets 11/25/17 Breakfast Ordered Assessment/Plan - Assessment and Plan (Free Text) Plan: Patient seen and examined on rounds with resident, agree with note with following additions/exceptions: patient is 52yo female with PMHx depression, bipolar disorder, anxiety, heroin abuse, alcohol abuse, and tobacco abuse who was found unresponsive at her home, ++alcohol and heroin, reportedly in an attempt to self-harm. Currently afebrile , HD stable, comfortable in NAD, AAOx3, OFF narcan drip, doing well overall. Cont with 1:1 monitoring, psych eval, regular diet, IVF, GI ppx, DVT ppx, transfer to med/surg. STABLE
[2017-11-26 08:00] LABS: BASO # 0.01 K/mm3 (0.0-2.0); BASO % 0.2 % (0.0-3.0); EOS # 0.1 (0.0-0.7); EOS % 1.7 % (1.5-5.0); GRAN # 2.22 (1.4-6.5); HEMOGLOBIN 12.9 g/dL (12.0-16.0); LYMPH # 1.6 (1.2-3.4); LYMPH % 38.7 % (22.0-35.0); MEAN CELL VOLUME 103.1 fl (80.0-105.0); MEAN CORPUSCULAR HEMOGLOBIN 33.6 pg (25.0-35.0); MEAN CORPUSCULAR HGB CONC 32.6 g/dl (31.0-37.0); MEAN PLATELET VOLUME 9.4 fl (7.0-11.0); MONO # 0.2 (0.1-0.6); MONO % 5.4 % (1.0-6.0); RBC 3.84 10^6/uL (3.5-6.1); RED CELL DISTRIBUTION WIDTH 12.7 % (11.5-14.5); WHITE BLOOD COUNT 4.1 10^3/ul (4.5-11.0)
[2017-11-26 08:26] LABS: ALB/GLOB RATIO 1.6 (1.1-1.8); ALBUMIN 4.3 g/dL (3.0-4.8); ALT/SGPT 24 U/L (7-56); AST/SGOT 25 U/L (14-36); BLOOD UREA NITROGEN 2 mg/dL (7-21); CALCIUM 9.6 mg/dL (8.4-10.5); GFR AFRICAN-AMERICAN > 60; GFR NON-AFRICAN AMERICAN > 60
[2017-11-26 08:51] VITALS: BP 101/68; PULSE 76; RESP 18; TEMP 98; O2SAT 98
--- NOTE | 2017-11-26 09:23 | CT ---
PROCEDURE: CT HEAD WITHOUT CONTRAST. HISTORY: Excruciating MALHOTRA COMPARISON: Comparison made with prior CT scan of the brain 05/07/2014. TECHNIQUE: Axial computed tomography images were obtained through the head/brain without intravenous contrast. Radiation dose: Total exam DLP = 963.98 mGy-cm. This CT exam was performed using one or more of the following dose reduction techniques: Automated exposure control, adjustment of the mA and/or kV according to patient size, and/or use of iterative reconstruction technique. FINDINGS: HEMORRHAGE: No acute parenchymal, subarachnoid nor extra-axial hemorrhage. BRAIN: No evidence of large acute infarct. Suspect minor chronic periventricular white matter ischemic changes. Mild generalized volume loss with more localized bifrontal cortical atrophic changes. . Small pleural based calcifications again seen in the left parasagittal and right frontal regions. VENTRICLES: Unremarkable. No hydrocephalus. CALVARIUM: Unremarkable. PARANASAL SINUSES: Unremarkable as visualized. No significant inflammatory changes. MASTOID AIR CELLS: Unremarkable as visualized. No inflammatory changes. OTHER FINDINGS: None. IMPRESSION: No acute intracranial hemorrhage. Suspect minimal chronic periventricular white matter ischemic changes. Mild generalized volume loss with more localized atrophic changes right superior frontal cortex.
[2017-11-26] MEDS ORDERED: Multivitamin Therapeutic Tab PO SCH (10:00)
--- NOTE | 2017-11-26 12:39 | CP.PCM.DIS ---
<Issa Greene - Last Filed: 11/26/17 19:26> Provider - Provider Date of Admission: 11/25/17 00:26 Attending physician: Kath Worley MD Consults: Psych: Ruiz Time Spent in preparation of Discharge (in minutes): 45 Hospital Course - Lab Results Lab Results: Micro Results 11/25/17 02:21 Naris MRSA Culture (Admit) - Final MRSA NOT DETECTED Most Recent Lab Values WBC 4.1 10^3/ul (4.5-11.0) L D 11/26/17 07:30 RBC 3.84 10^6/uL (3.5-6.1) 11/26/17 07:30 Hgb 12.9 g/dL (12.0-16.0) 11/26/17 07:30 Hct 39.6 % (36.0-48.0) 11/26/17 07:30 MCV 103.1 fl (80.0-105.0) 11/26/17 07:30 MCH 33.6 pg (25.0-35.0) 11/26/17 07:30 MCHC 32.6 g/dl (31.0-37.0) 11/26/17 07:30 RDW 12.7 % (11.5-14.5) 11/26/17 07:30 Plt Count 285 10^3/uL (120.0-450.0) 11/26/17 07:30 MPV 9.4 fl (7.0-11.0) 11/26/17 07:30 Gran % 54.0 % (50.0-68.0) 11/26/17 07:30 Lymph % (Auto) 38.7 % (22.0-35.0) H 11/26/17 07:30 [place] % (Auto) 5.4 % (1.0-6.0) 11/26/17 07:30 Eos % (Auto) 1.7 % (1.5-5.0) 11/26/17 07:30 Baso % (Auto) 0.2 % (0.0-3.0) 11/26/17 07:30 Gran # 2.22 (1.4-6.5) 11/26/17 07:30 Lymph # (Auto) 1.6 (1.2-3.4) 11/26/17 07:30 [place] # (Auto) 0.2 (0.1-0.6) 11/26/17 07:30 Eos # (Auto) 0.1 (0.0-0.7) 11/26/17 07:30 Baso # (Auto) 0.01 K/mm3 (0.0-2.0) 11/26/17 07:30 APTT 26.8 Seconds (25.1-36.5) 11/26/17 10:46 pCO2 47 mm/Hg (35-45) H 11/24/17 21:45 pO2 122.0 mm/Hg (80-100) H 11/24/17 21:45 HCO3 27.2 mmol/L (21-28) 11/24/17 21:45 ABG pH 7.37 (7.35-7.45) 11/24/17 21:45 ABG Total CO2 28.6 mmol.L (22-28) H 11/24/17 21:45 ABG O2 Saturation 99.6 % (95-98) H 11/24/17 21:45 ABG O2 Content 14.8 ML/dl (15-23) L 11/24/17 21:45 ABG Base Excess 1.4 mmol/L (-2.0-3.0) 11/24/17 21:45 ABG Hemoglobin 11.3 g/dL (11.7-17.4) L 11/24/17 21:45 ABG Carboxyhemoglobin 6.6 % (0.5-1.5) H 11/24/17 21:45 POC ABG HHb (Measured) 0.4 % (0-5) 11/24/17 21:45 ABG Methemoglobin 1.3 % (0.0-3.0) 11/24/17 21:45 ABG O2 Capacity 14.9 mL/dl (16-24) L 11/24/17 21:45 Hgb O2 Saturation 91.8 % (95.0-98.0) L 11/24/17 21:45 FiO2 28.0 % 11/24/17 21:45 Sodium 144 mmol/L (132-148) 11/26/17 07:30 Potassium 3.8 mmol/L (3.6-5.0) 11/26/17 07:30 Chloride 104 mmol/L (98-107) 11/26/17 07:30 Carbon Dioxide 31 mmol/L (21-33) 11/26/17 07:30 Anion Gap 13 (10-20) 11/26/17 07:30 BUN 2 mg/dL (7-21) L 11/26/17 07:30 Creatinine 0.5 mg/dl (0.7-1.2) L 11/26/17 07:30 Est GFR ( Amer) > 60 11/26/17 07:30 Est GFR (Non-Af Amer) > 60 11/26/17 07:30 Random Glucose 104 mg/dL (70-110) 11/26/17 07:30 Calcium 9.6 mg/dL (8.4-10.5) 11/26/17 07:30 Magnesium 1.9 mg/dL (1.7-2.2) 11/24/17 19:35 Total Bilirubin 0.4 mg/dL (0.2-1.3) 11/26/17 07:30 AST 25 U/L (14-36) 11/26/17 07:30 ALT 24 U/L (7-56) 11/26/17 07:30 Alkaline Phosphatase 54 U/L (38-126) 11/26/17 07:30 Total Protein 7.1 g/dL (5.8-8.3) 11/26/17 07:30 Albumin 4.3 g/dL (3.0-4.8) 11/26/17 07:30 Globulin 2.7 gm/dL 11/26/17 07:30 Albumin/Globulin Ratio 1.6 (1.1-1.8) 11/26/17 07:30 Urine Color Yellow (YELLOW) 11/24/17 22:39 Urine Appearance Clear (CLEAR) 11/24/17 22:39 Urine pH 6.0 (4.7-8.0) 11/24/17 22:39 Ur Specific [place] 1.020 (1.005-1.035) 11/24/17 22:39 Urine Protein Negative mg/dL (<30 mg/dL) 11/24/17 22:39 Urine Glucose (UA) Negative mg/dL (NEGATIVE) 11/24/17 22:39 Urine Ketones Negative mg/dL (NEGATIVE) 11/24/17 22:39 Urine Blood Negative (NEGATIVE) 11/24/17 22:39 Urine Nitrate Negative (NEGATIVE) 11/24/17 22:39 Urine Bilirubin Negative (NEGATIVE) 11/24/17 22:39 Urine Urobilinogen 0.2 E.U./dL (<1 E.U./dL) 11/24/17 22:39 Ur Leukocyte Esterase Small Mika/uL (NEGATIVE) H 11/24/17 22:39 Urine RBC Negative /hpf (0-2) 11/24/17 22:39 Urine WBC 1 - 3 /hpf (0-6) 11/24/17 22:39 Ur Epithelial Cells 1 - 3 /hpf (0-5) 11/24/17 22:39 Urine Bacteria Trace (NEG) 11/24/17 22:39 Salicylates < 1 mg/dL (2.0-20.0) L 11/24/17 19:35 Urine Opiates Screen Positive (NEGATIVE) H 11/24/17 22:39 Urine Methadone Screen Negative (NEGATIVE) 11/24/17 22:39 Acetaminophen < 10.0 ug/ml (10.0-20.0) L 11/24/17 19:35 Ur Barbiturates Screen Negative (NEGATIVE) 11/24/17 22:39 Ur Phencyclidine Scrn Negative (NEGATIVE) 11/24/17 22:39 Ur Amphetamines Screen Negative (NEGATIVE) 11/24/17 22:39 U Benzodiazepines Scrn Positive (NEGATIVE) 11/24/17 22:39 U Oth Cocaine Metabols Negative (NEGATIVE) 11/24/17 22:39 U Cannabinoids Screen Negative (NEGATIVE) 11/24/17 22:39 Alcohol, Quantitative 98 mg/dL (0-10) H 11/24/17 19:35 - Hospital Course Hospital Course: On Admission: Ms. Parra is a 52 year old female with a past medical history significant for depression, bipolar disorder, anxiety, heroin abuse, alcohol abuse, and tobacco abuse who was brought in by ambulance after she was found unresponsive at her home. Patient currently alert, oriented and able to provide HPI information. Patient reports that earlier today she was visited by her son, who also suffers from depression, and became depressed with suicidal ideation after he left. She endorses that after he left, she snorted a small amount of heroin and consumed 12 50ml bottles of vodka within a few hours. Afterwards, she does not remember anything until waking up in the ambulance. She endorses that she is still depressed and with suicidal ideation, stating "I think about killing myself almost every minute of every day". Currently she denies any fevers, chills, headache, chest pain, palpitations, SOB, cough, wheezing, abdominal pain, N/V/D/ C, changes in urine output, skin changes, or any numbness/tingling/weakness of any extremity. Hospital course: Patient was transferred to ICU and placed on narcan drip. The drip was discontinued the next day as the patient was awake and aware and oriented x3. Patient was transferred to [facility]. Complained of severe MALHOTRA on the left side with associated numbness down the left arm and shoulder. CT head was done at that time and was negative. Her symptoms since resolved. Labs are unremarkable and vitals are stable. Patient is medically stable to be transferred to [facility]. Discharge Exam - Head Exam Head Exam: ATRAUMATIC, NORMOCEPHALIC - Eye Exam Eye Exam: EOMI, Normal appearance, PERRL Pupil Exam: NORMAL ACCOMODATION, PERRL - Respiratory Exam Respiratory Exam: Clear to PA & Lateral, NORMAL BREATHING PATTERN, UNREMARKABLE - Cardiovascular Exam Cardiovascular Exam: REGULAR RHYTHM - GI/Abdominal Exam GI & Abdominal Exam: Normal Bowel Sounds, Soft, Unremarkable. absent: Distended , Tenderness - Neurological Exam Neurological exam: Alert, CN II-XII Intact, Normal Gait, Oriented x3, Reflexes Normal - Psychiatric Exam Psychiatric exam: Normal Affect, Normal Mood - Skin Skin Exam: Dry, Intact, Normal Color, Warm Discharge Plan - Follow Up Plan Condition: STABLE Disposition: DISCHARGE TO PSYCH HOSPITAL Instructions: Depression, Adult (DC), Medicines for Depression, When You Have Depression and Another Health Problem, Screening for Depression, Suicide Prevention, Tips for How to Help Your Mood, Depression (DC), Suicide Prevention for Adults (DC) Additional Instructions: You have been discharged from the Medical Surgical floor of [facility]. You will be going to the psychiatric unit here at Referrals: [facility] at [facility] [place] [Outside] <Norman Espinoza - Last Filed: 11/27/17 10:41> Provider - Provider Date of Admission: 11/25/17 00:26 Attending physician: Kath Wroley MD Hospital Course - Lab Results Lab Results: Micro Results 11/25/17 02:21 Naris MRSA Culture (Admit) - Final MRSA NOT DETECTED Most Recent Lab Values WBC 4.1 10^3/ul (4.5-11.0) L D 11/26/17 07:30 RBC 3.84 10^6/uL (3.5-6.1) 11/26/17 07:30 Hgb 12.9 g/dL (12.0-16.0) 11/26/17 07:30 Hct 39.6 % (36.0-48.0) 11/26/17 07:30 MCV 103.1 fl (80.0-105.0) 11/26/17 07:30 MCH 33.6 pg (25.0-35.0) 11/26/17 07:30 MCHC 32.6 g/dl (31.0-37.0) 11/26/17 07:30 RDW 12.7 % (11.5-14.5) 11/26/17 07:30 Plt Count 285 10^3/uL (120.0-450.0) 11/26/17 07:30 MPV 9.4 fl (7.0-11.0) 11/26/17 07:30 Gran % 54.0 % (50.0-68.0) 11/26/17 07:30 Lymph % (Auto) 38.7 % (22.0-35.0) H 11/26/17 07:30 [place] % (Auto) 5.4 % (1.0-6.0) 11/26/17 07:30 Eos % (Auto) 1.7 % (1.5-5.0) 11/26/17 07:30 Baso % (Auto) 0.2 % (0.0-3.0) 11/26/17 07:30 Gran # 2.22 (1.4-6.5) 11/26/17 07:30 Lymph # (Auto) 1.6 (1.2-3.4) 11/26/17 07:30 [place] # (Auto) 0.2 (0.1-0.6) 11/26/17 07:30 Eos # (Auto) 0.1 (0.0-0.7) 11/26/17 07:30 Baso # (Auto) 0.01 K/mm3 (0.0-2.0) 11/26/17 07:30 APTT 26.8 Seconds (25.1-36.5) 11/26/17 10:46 pCO2 47 mm/Hg (35-45) H 11/24/17 21:45 pO2 122.0 mm/Hg (80-100) H 11/24/17 21:45 HCO3 27.2 mmol/L (21-28) 11/24/17 21:45 ABG pH 7.37 (7.35-7.45) 11/24/17 21:45 ABG Total CO2 28.6 mmol.L (22-28) H 11/24/17 21:45 ABG O2 Saturation 99.6 % (95-98) H 11/24/17 21:45 ABG O2 Content 14.8 ML/dl (15-23) L 11/24/17 21:45 ABG Base Excess 1.4 mmol/L (-2.0-3.0) 11/24/17 21:45 ABG Hemoglobin 11.3 g/dL (11.7-17.4) L 11/24/17 21:45 ABG Carboxyhemoglobin 6.6 % (0.5-1.5) H 11/24/17 21:45 POC ABG HHb (Measured) 0.4 % (0-5) 11/24/17 21:45 ABG Methemoglobin 1.3 % (0.0-3.0) 11/24/17 21:45 ABG O2 Capacity 14.9 mL/dl (16-24) L 11/24/17 21:45 Hgb O2 Saturation 91.8 % (95.0-98.0) L 11/24/17 21:45 FiO2 28.0 % 11/24/17 21:45 Sodium 144 mmol/L (132-148) 11/26/17 07:30 Potassium 3.8 mmol/L (3.6-5.0) 11/26/17 07:30 Chloride 104 mmol/L (98-107) 11/26/17 07:30 Carbon Dioxide 31 mmol/L (21-33) 11/26/17 07:30 Anion Gap 13 (10-20) 11/26/17 07:30 BUN 2 mg/dL (7-21) L 11/26/17 07:30 Creatinine 0.5 mg/dl (0.7-1.2) L 11/26/17 07:30 Est GFR ( Amer) > 60 11/26/17 07:30 Est GFR (Non-Af Amer) > 60 11/26/17 07:30 Random Glucose 104 mg/dL (70-110) 11/26/17 07:30 Calcium 9.6 mg/dL (8.4-10.5) 11/26/17 07:30 Magnesium 1.9 mg/dL (1.7-2.2) 11/24/17 19:35 Total Bilirubin 0.4 mg/dL (0.2-1.3) 11/26/17 07:30 AST 25 U/L (14-36) 11/26/17 07:30 ALT 24 U/L (7-56) 11/26/17 07:30 Alkaline Phosphatase 54 U/L (38-126) 11/26/17 07:30 Total Protein 7.1 g/dL (5.8-8.3) 11/26/17 07:30 Albumin 4.3 g/dL (3.0-4.8) 11/26/17 07:30 Globulin 2.7 gm/dL 11/26/17 07:30 Albumin/Globulin Ratio 1.6 (1.1-1.8) 11/26/17 07:30 Urine Color Yellow (YELLOW) 11/24/17 22:39 Urine Appearance Clear (CLEAR) 11/24/17 22:39 Urine pH 6.0 (4.7-8.0) 11/24/17 22:39 Ur Specific [place] 1.020 (1.005-1.035) 11/24/17 22:39 Urine Protein Negative mg/dL (<30 mg/dL) 11/24/17 22:39 Urine Glucose (UA) Negative mg/dL (NEGATIVE) 11/24/17 22:39 Urine Ketones Negative mg/dL (NEGATIVE) 11/24/17 22:39 Urine Blood Negative (NEGATIVE) 11/24/17 22:39 Urine Nitrate Negative (NEGATIVE) 11/24/17 22:39 Urine Bilirubin Negative (NEGATIVE) 11/24/17 22:39 Urine Urobilinogen 0.2 E.U./dL (<1 E.U./dL) 11/24/17 22:39 Ur Leukocyte Esterase Small Mika/uL (NEGATIVE) H 11/24/17 22:39 Urine RBC Negative /hpf (0-2) 11/24/17 22:39 Urine WBC 1 - 3 /hpf (0-6) 11/24/17 22:39 Ur Epithelial Cells 1 - 3 /hpf (0-5) 11/24/17 22:39 Urine Bacteria Trace (NEG) 11/24/17 22:39 Salicylates < 1 mg/dL (2.0-20.0) L 11/24/17 19:35 Urine Opiates Screen Positive (NEGATIVE) H 11/24/17 22:39 Urine Methadone Screen Negative (NEGATIVE) 11/24/17 22:39 Acetaminophen < 10.0 ug/ml (10.0-20.0) L 11/24/17 19:35 Ur Barbiturates Screen Negative (NEGATIVE) 11/24/17 22:39 Ur Phencyclidine Scrn Negative (NEGATIVE) 11/24/17 22:39 Ur Amphetamines Screen Negative (NEGATIVE) 11/24/17 22:39 U Benzodiazepines Scrn Positive (NEGATIVE) 11/24/17 22:39 U Oth Cocaine Metabols Negative (NEGATIVE) 11/24/17 22:39 U Cannabinoids Screen Negative (NEGATIVE) 11/24/17 22:39 Alcohol, Quantitative 98 mg/dL (0-10) H 11/24/17 19:35 Attending/Attestation - Attestation I have personally seen and examined this patient.: Yes I have fully participated in the care of the patient.: Yes I have reviewed all pertinent clinical information, including history, physical exam and plan: Yes Notes (Text): 11/27/17 10:39 Medical record note made by the resident after discussion with my direction and input after the patient was personally seen and examined by me. I have reviewed the chart and agree that the record accurately reflects by personal performance of the history, physical exam, data review, and medical decision-making, in the course for the patient. I have also personally directed the plan of care. 52 yo F with PMH of depression, bipolar disorder, anxiety, heroin abuse, alcohol abuse, and tobacco abuse who was brought in by ambulance after she was found unresponsive at her home. She was found to have abused alcohol and heroin, reportedly in an attempt to self-harm. She was admitted to the ICU for monitoring while on a Narcan drip, and then was transferred to medical floor.She remain stable on medical floor..Headache has resolved.There is no sign of alcohol or Narcotic withdrawal.She was evaluated by Psychiatry and has been accepted for inpatient admission.She will be discharged to Psychiatry. Management plan was discussed in detail with patient. Education was provided.
--- NOTE | 2017-11-29 08:28 | CON ---
DATE: 11/25/2017 HISTORY OF PRESENT ILLNESS: Patient is a single 52-year-old white female with a long history of depression, anxiety, comorbid with severe borderline personality disorder, numerous hospitalizations; most recently, patient appears to have been treated at [facility] approximately a year ago, though she has other hospitalizations at [facility] as well as [facility], patient reportedly greater than "two thousand suicide attempts in her lifetime," prior history of ECT and treatment with Dr. Roy, most recent followup was a few months ago with reported compliance with Klonopin 1 mg a.m. and 2 mg at bedtime, Lamictal 200 mg a.m. and 100 mg at bedtime, Thorazine 100 mg at bedtime as well as 50 mg p.r.n. during the day, who is being treated intentional suicide attempts versus gesture, which she snorted a line of heroin and drank excessive amounts of vodka following an argument with her son, per the son. When patient was interviewed after her attempts, patient was she has taken the heroin and the . I met with the patient at bedtime and she is alert and oriented to month, year, location, and circumstances. Patient is fairly cooperative and can be mildly dramatic. For example, she indicated that she has tried to commit suicide over two thousand times. Patient also reports that she has been psychiatrically hospitalized "every single hospital in [facility] Patient indicated that she is depressed mostly because of continuing conflict with her adopted son who has mental health issues as well as drug issues. Patient has a history of conflict with her son and her adult daughter. Patient denies having a history of substance addiction, though admits to recreationally using heroin a few years ago for just about a year "here and there." Patient also denies that she has any issues with alcohol addiction. She very infrequently drinks, perhaps 1 to 2 beers a week. Patient denies any history of rehab either. Patient reports that she is depressed and her main stressor is her relationship with her son and his instability to function. She is very worried about his depression. She admits to feeling overwhelm with low energy, moodiness, anhedonia, poor sleep and indicate that she is "not glad to be alive." Nonetheless, she denies having any suicidal thoughts, although does endorse hopelessness. Patient is interested in transfer to the Psychiatric Unit when she is medically stabilized. I feel like that this might be beneficial, though she does have a history of numerous suicide attempts versus gestures (this was confirmed by checking previous records), patient should be observed because she has notable history of impulsivity. Patient is coherent. She is not hallucinating. Denies any history of hallucination and appears anxious and labile and cheerful during my interview with her this morning. Her insight and judgment are poor. SOCIAL HISTORY: Patient was born and raised in [place]. She is single. She has two adult children, a 30-year-old and a 25-year-old son. Patient generally resides by herself; however, her 30-year-old son who likely living with her, again 30-year-old son has mental health issues. He is very depressed. Patient reports hat he wants to daily. He has been feeling this for years. Patient also feels like that he abuses Adderall. Patient has a history of contentious relationship with her daughter as well per prior records. Patient reports that she had a history of recreational heroin use, only intranasally a few years ago for approximately one year. Patient reports that she used "here and there." Patient can remember the last time prior to her overdose that she used. Patient also reports alcohol use only 1 to 2 times a week and just beers. Patient is on SSI and she is not employed. PSYCHIATRIC HISTORY: As noted above. She has been hospitalized through numerous institutions including [facility], [place] and where she received ECT on two occasions in 2008 per patient, [facility] and [facility]. Patient denies any history of involuntary hospitalization. Patient reports she has tried to commit suicide over two thousand times. Prior records indicates that the patient has overdosed on Klonopin and her psychiatrist cut medications in the past. Patient reports that she has tried every single medications and they have failed, specifically SSRIs make her suicidal. Patient feels that current medications that she currently prescribed by Dr. Roy were beneficial until stopped working. These medications include Klonopin 1 mg a.m. and 2 mg at bedtime, Lamictal 200 mg a.m. and 200 mg at dinner, Thorazine 50 mg during the day p.r.n. and Thorazine 100 mg at bedtime. RELEVANT PSYCHIATRIC MEDICATIONS: The patient is being treated in the CCU, include Thorazine 100 mg at bedtime, Lamictal 100 mg p.o. b.i.d., trazodone 50 mg at bedtime. IMPRESSION: Patient is suffering from severe borderline personality disorder as well as major depression, not severe as well as anxiety disorder, rule out substance abuse disorder, mood disorder. Opioid screening and benzos screening were positive. Blood alcohol level was 98; however, I cannot rule out that she was abusing these substances on a daily basis prior to her reported overdose prior to admission. RECOMMENDATIONS: 1. she is agreeable to transfer. Until then, she is not psychiatrically cleared for discharge. 2. Psychiatry will continue to follow up with the patient. Monitor her progress, intolerance to medications. 3. I would continue one-to-one if patient unpredictable unless she is this provider. 4. Regarding her psychiatric medications, provider will be conservative considering her recent overdose. We will continue trazodone at 50 mg, will continue with current meds in general, increase Lamictal to 150 mg a.m. and at bedtime, initiate Klonopin at 0.5 mg a.m. at bedtime and continue to titrate as she can medically tolerate. Maykel Ruiz MD
== END 2017-11-26 15:32 | DRG 744 ==
LOC: ED 18:54 → ERH 11-25 00:26 → CCU 11-25 02:14 → 5RSO 11-25 12:07
PROVIDERS: ADMIT Internal Medicine; ATTEND Internal Medicine
DX: F11.10 Opioid abuse, uncomplicated (principal); J43.9 Emphysema, unspecified; F10.10 Alcohol abuse, uncomplicated; R45.851 Suicidal ideations; F31.9 Bipolar disorder, unspecified; F17.200 Nicotine dependence, unspecified, uncomplicated; F60.3 Borderline personality disorder; F41.9 Anxiety disorder, unspecified; K21.9 Gastro-esophageal reflux disease without esophagitis; Y90.4 Blood alcohol level of 80-99 mg/100 ml; R51 Headache

== ENCOUNTER 2017-11-26 15:35 | Inpatient (IN) | payer MEDICAID ==
[2017-11-26 16:32] VITALS: BMI 22.1
[2017-11-26] MEDS: Magnesium Hydroxide Susp 30 ml UD PO PRN (17:22)
--- NOTE | 2017-11-26 18:34 | PCM.BM ---
<Brandon Tobin - Last Filed: 11/26/17 18:31> Treatment Plan Problems - Problems identified on initial assessmt feelings of wortlessness Date Initiated: 11/26/17 Time Initiated: 18:31 Assessment reference: HP, NA Status: Active hoplessness/helplessness Date Initiated: 11/26/17 Time Initiated: 18:32 Assessment reference: HP, NA Status: Active social isolation Date Initiated: 11/26/17 Time Initiated: 18:32 Assessment reference: HP, NA Status: Active Treatment assets and liabiliti Patient Assests: cooperative, educated, self-reliant, negotiates basic needs, good past tx response, cognitively intact, other Patient Liabilities: financial problems, poor support system, relationship conflicts, substance abuse, medical problems, other - Milieu Protocol Maintain good personal hygiene: daily Encourage regular showers, daily Remind patient to perform daily oral care, daily Assist patient to perform ADL's Maintain personal safety: daily Educate patient to report safety concerns to staff, daily Monitor environment for contraband/sharps Medication safety: Monitor for expected outcome, potential side effects: daily, Assess barriers to learning: daily, Assess readiness for medication education: daily Discharge/Continuing Care - Education Needs Education Needs: Patient Medication, Patient Diagnosis/Disease Process, Patient Coping Skills, Patient Placement options, Patient Community resources, Patient Activities of Daily Living, Patient Health Practices/Safety, Patient Personal Hygiene/Grooming, Patient Aftercare Safety Plan - Discharge Discharge Criteria: Tolerates medication w/o severe side effects, Free of Suicidal thoughts, Free of Homicidal thoughts, Free of agitation, Normal sleep pattern, Ability to care for self Discharge to:: Home <Maykel Ruiz - Last Filed: 11/27/17 11:33> - Diagnosis (1) Borderline personality disorder Status: Chronic Interventions: Group, milieu and supportive therapy. 11/27/17 11:34 (2) Depression Status: Acute Interventions: * Lamictal 200 mg po bid for mood control * Klonopin 1 mg AM and 2 mg HS for anxiety and mood control * Thorazine 50 mg HS with plan to titrate to prior dose of 100 mg HS * Trazodone 100 mg HS for depression and off-label for insomnia 11/27/17 11:34 (3) Panic disorder Status: Acute Interventions: * Lamictal 200 mg po bid for mood control * Klonopin 1 mg AM and 2 mg HS for anxiety and mood control * Thorazine 50 mg HS with plan to titrate to prior dose of 100 mg HS * Trazodone 100 mg HS for depression and off-label for insomnia 11/27/17 11:34 <Maylin Kim - Last Filed: 11/30/17 15:15> Family Contact Family involvement: Famliy/SO not involved - Outside Agency [facility] involvment: Not involved
[2017-11-27 08:42] LABS: ALB/GLOB RATIO 1.5 (1.1-1.8); ALBUMIN 4.6 g/dL (3.0-4.8); ALT/SGPT 24 U/L (7-56); AST/SGOT 28 U/L (14-36); BLOOD UREA NITROGEN 5 mg/dL (7-21); CALCIUM 9.9 mg/dL (8.4-10.5); GFR AFRICAN-AMERICAN > 60; GFR NON-AFRICAN AMERICAN > 60; GLUCOSE,FASTING 108 mg/dL (65-110); HDL CHOLESTEROL 67 mg/dL (29-60)
[2017-11-27 08:47] LABS: LDL CHOLESTEROL 131 mg/dL (0-129)
[2017-11-27 08:52] LABS: FREE T4 0.91 ng/dL (0.78-2.19)
[2017-11-27 08:55] LABS: HEMOGLOBIN 13.6 g/dL (12.0-16.0); MEAN CELL VOLUME 103.1 fl (80.0-105.0); MEAN CORPUSCULAR HEMOGLOBIN 34.8 pg (25.0-35.0); MEAN CORPUSCULAR HGB CONC 33.7 g/dl (31.0-37.0); MEAN PLATELET VOLUME 9.7 fl (7.0-11.0); RBC 3.91 10^6/uL (3.5-6.1); RED CELL DISTRIBUTION WIDTH 12.6 % (11.5-14.5); WHITE BLOOD COUNT 5.2 10^3/ul (4.5-11.0)
[2017-11-27] MEDS: Multivitamin Therapeutic Tab PO SCH (08:56)
[2017-11-27] MEDS ORDERED: POLYETHYLENE GLYCOL 3350 17 GM/Dose PACKET PO ONE ×2 (10:16→16:52)
--- NOTE | 2017-11-27 11:33 | PCM.PSYCH ---
Initial Psychiatric Evaluation - Initial Psychiatric Evaluation Type of Admission: Voluntary Legal Status: Capacity History of Present Illness and Precipitating Events: Patient is a 52-year-old white female with a psychiatric history of bipolar disorder, panic disorder disorder and borderline personality disorder, numerous psychiatric admissions-most recently hospitalized at [facility] in October 2016 x1 day and most [place] [facility] [place], reportedly more than 2000 prior suicide attempts [per patient], history of ECT in [place], numerous failed medication trials, in treatment with Dr. Avery and reportedly compliant with her medications of klonopin, thorazine and Lamictal, who~ was admitted to the medical floor on November 25 after impulsively tried to kill herself with heroin and vodka after an argument with her adult son. I was consult it to assess patient while she was being medically treated in the CCU and subsequently on the medical floor. I saw her on two occasions November 25 and November 26. On both occasions patient reported helplessness, hopelessness low energy, excessive anxiety, low frustration tolerance, unhappiness, moodiness poor sleep and wishes. Patient reported her main stressor was her concern over her sons mental health. She indicates that he inherited her depression and she doesnt know how to help him. She also fears that he is abusing Adderall prescribed by his doctor. Patient reports that she snorted a bag of heroin and drank a lot of vodka on the day of her admission. States she did this with the intent to . Denied abusing these substances prior to incident (though with history of heroin abuse a few years ago). She could not contract for safety and required 1-to-1 on both days of her medical admission. I met with patient in the hallway this morning. She presents as groomed and well -oriented to month, year, circumstances and location. Patient reports she is feeling better and currently feels safe on the unit. She appears anxious but less emotional than prior days on the medical floor. Her thought process is coherent without evidence of any perceptual disturbance She would like for her medications to be titrated to their former doses. Specifically klonopin , Thorazine 100 HS, Lamictal 200 bid, trazodone 100 mg HS prn. Patient denies any side effects from her medications or any new discomfort or pain. Thats far her behavior has been in control and there have been no behavioral issues. SOCIAL HISTORY Patient was born and raised in [place]. She is and has two adult children 30-year-old adult son and a 25-year-old daughter. She generally lives by herself however indicates that her 30-year-old son would likely move in with her soon due to his mental health issues. Patient is on disability and does not work. Patient denies history of drug or alcohol issues though she admits to recreational heroin use a few years ago for a period of approximately a year. Patient also reports that she drinks 1-2 beers a week and denies any excessive or binge drinking unless she is trying to commit suicide. Patient denies any history of detoxes or rehabs. PSYCHIATRIC HISTORY Patient reports a history of numerous admissions including [facility], [facility], [facility] as well as [place] for ECT. She denies history of involuntary commitment. She reports greater than 2000 prior suicide attempts. Patient reports that she is an outpatient treatment with Dr. Willis and she is currently being prescribed klonopin 1 mg am and 2 mg HS, lamictal 200 bid, Thorazine 100 mg HS and Trazodone 100 mg HS prn. Patients most recent hospitalization was at [facility] for approximately one day. Patient admitted that she was never suicidal and made statements about suicide to gain admission to the hospital so her medications could be restarted. . Discharge medications include Thorazine 100 mg HS Lamictal 100 mg BID trazodone 50 mg HS PRN and klonopin 1 mg a.m. and 2 mg HS Patient reports numerous failed medication trials and indicates that SSRIs cause her to be manic and suicidal. Current Medications: Active Medications Generic Name Dose Route Start Last Admin Trade Name Freq PRN Reason Stop Dose Admin Acetaminophen 650 mg 11/26/17 16:50 Tylenol 325mg Tab PO Q6H PRN Pain, moderate (4-7) Chlorpromazine 100 mg 11/26/17 22:00 11/26/17 22:10 Thorazine PO 100 mg HS LONNIE Administration Protocol Clonazepam 0.5 mg 11/26/17 22:00 11/26/17 22:11 Klonopin PO 0.5 mg AMHS LONNIE Administration Protocol Folic Acid 1 mg 11/27/17 08:00 Folic Acid PO DAILY LONNIE Lamotrigine 150 mg 11/26/17 17:00 11/26/17 17:22 Lamictal PO 150 mg BID LONNIE Administration Protocol Magnesium Hydroxide 30 ml 11/26/17 16:36 11/26/17 17:22 Milk Of Magnesia PO 30 ml DAILY PRN Administration Constipation Multivitamins 1 tab 11/27/17 08:00 Thera Tab PO 0800 LONNIE Nicotine 1 patch 11/26/17 16:45 11/26/17 17:22 Nicoderm Cq TD 1 patch DAILY LONNIE Administration Ondansetron HCl 4 mg 11/26/17 16:44 Zofran Tab PO Q8H PRN Nausea/Vomiting Thiamine HCl 100 mg 11/27/17 08:00 Vitamin B1 Tab PO DAILY LONNIE Trazodone HCl 50 mg 11/26/17 16:41 11/26/17 23:32 Desyrel PO 50 mg HS PRN Administration Insomnia Past Psychiatric History - Past Psychiatric History Pertinent Medical Hx (Current Medical&Sleep Prob, Allergies): Allergies Allergy/AdvReac Type Severity Reaction Status Date / Time aspirin Allergy Mild RASH Verified 11/26/17 18:38 Penicillins Allergy RASH Verified 11/26/17 18:38 ibuprofen [From Motrin] AdvReac ANAPHYLAXIS Verified 11/26/17 18:38 NSAIDS (Non-Steroidal AdvReac ANAPHYLAXIS Verified 11/26/17 18:38 Anti-Inflamma quetiapine fumarate AdvReac SHORTNESS Verified 11/26/17 18:38 [From Seroquel] OF BREATH Clonazepam [Klonopin] 2 mg PO HS #15 tablet 10/28/16 Nicotine 21 mg/24 hr [Nicoderm Cq] 1 patch TD DAILY #30 patch 10/28/16 chlorproMAZINE [Thorazine] 100 mg PO HS #60 tab 10/28/16 clonazePAM [Klonopin] 1 mg PO QAM #15 tab 10/28/16 lamoTRIgine [Lamictal] 100 mg PO BID #30 tab 10/28/16 traZODone [Desyrel] 50 mg PO HS PRN #25 tab 10/28/16 Folic Acid 1 mg PO DAILY tab 11/26/17 Multivitamin Therapeutic Tab [Thera Tab] 1 tab PO DAILY tab 11/26/17 Thiamine [Vitamin B1 Tab] 100 mg PO DAILY tab 11/26/17 Mental Status Examination - Personal Presentation Personal Presentation: Looks stated age - Affect Affect: Broad - Motor Activity Motor Activity: Calm - Reliability in Providing Information Reliability in Providing Information: Fair - Speech Speech: Organized - Mood Mood: Depressed, Anxious - Formal Thought Process Formal Thought Process: No Impairment - Obsessions/Compulsions Obsessions: No - Cognitive Functions Orientation: Person, Place, Situation Sensorium: Alert Attention/Concentration: Attentive Estimate of Intelligence: Average Judgement: Imparied, as evidence by: Lack of insight into illness Memory: Recent intact, as evidence by: Ability to recall events of the day, Remote intact, as evidenced by: Abilit to recall sig. life events - Risk Risk: Suicidal, Diminished functioning - Strength & Assets Inventory Strength & Assets Inventory: Cooperative DSM 5 DX - DSM 5 DSM 5 Diagnosis: Bipolar Disorder by history Borderline Personality Disorder Panic Disorder r/o contribution of opioid induced mood disorder (if patient is abusing) r/o contribution of alcohol induced mood disorder (if patient is abusing) - Recommended/Plan of Treatment Treatment Recommendations and Plan of Treatment: * Group, milieu and supportive treatment * Lamictal 200 mg po bid for mood control * Klonopin 1 mg AM and 2 mg HS for anxiety and mood control * Thorazine 50 mg HS with plan to titrate to prior dose of 100 mg HS * Trazodone 100 mg HS prn for depression and off-label for insomnia * Awaiting medical follow up * Vitals reviewed and noted below: Selected Entries 11/27/17 07:08 Temperature 97.8 F Pulse Rate 84 Respiratory 18 Rate Blood Pressure 127/85 * Recent floor labs noted below: Laboratory Results - last 24 hr 11/27/17 11/27/17 11/27/17 08:18 08:18 08:37 WBC 5.2 D RBC 3.91 Hgb 13.6 Hct 40.3 MCV 103.1 MCH 34.8 MCHC 33.7 RDW 12.6 Plt Count 340 MPV 9.7 Sodium 144 Potassium 3.8 Chloride 103 Carbon Dioxide 29 Anion Gap 16 BUN 5 L Creatinine 0.6 L Est GFR ( Amer) > 60 Est GFR (Non-Af Amer) > 60 Random Glucose 108 Fasting Glucose 108 Calcium 9.9 Phosphorus 3.4 Magnesium 2.2 Total Bilirubin 0.4 AST 28 ALT 24 Alkaline Phosphatase 54 Total Protein 7.6 Albumin 4.6 Globulin 3.0 Albumin/Globulin Ratio 1.5 Triglycerides 137 Cholesterol 229 H LDL Cholesterol Direct 131 H HDL Cholesterol 67 H Free T4 0.91 TSH 3rd Generation 0.74 - Smoking Cessation Smoking Cessation Initiated: No
--- NOTE | 2017-11-27 13:27 | CP.PCM.CON ---
<HermanjarekIssa lee - Last Filed: 11/27/17 13:24> History of Present Illness - History of Present Illness History of Present Illness: On Admission: Ms. Parra is a 52 year old female with a past medical history significant for depression, bipolar disorder, anxiety, heroin abuse, alcohol abuse, and tobacco abuse who was brought in by ambulance after she was found unresponsive at her home. Patient currently alert, oriented and able to provide HPI information. Patient reports that earlier today she was visited by her son, who also suffers from depression, and became depressed with suicidal ideation after he left. She endorses that after he left, she snorted a small amount of heroin and consumed 12 50ml bottles of vodka within a few hours. Afterwards, she does not remember anything until waking up in the ambulance. She endorses that she is still depressed and with suicidal ideation, stating "I think about killing myself almost every minute of every day". Currently she denies any fevers, chills, headache, chest pain, palpitations, SOB, cough, wheezing, abdominal pain, N/V/D/C, changes in urine output, skin changes, or any numbness/ tingling/weakness of any extremity. PMH: As stated above PSH: Denies Family History: Non-contributory Social History: Current smoker with approximately 40 year pack smoking history, drinks alcohol 1-2 times per week with intermittent binges, and intermittent heroin use (only intranasal); Unemployed on SSI; Lives alone in [place] Allergies: NSAIDs, ASA and PCN Home Medications: As per MAR Today: Patient was seen and examined at bedside. Doing well with no complaints at this time. We followed her while she was in the hospital and new issues have came up. We are seeing this patient as she has and abnormal lipid profile. Review of Systems - Review of Systems Review of Systems: Per HPI Past Patient History - Infectious Disease Hx of Infectious Diseases: None - Tetanus Immunizations Tetanus Immunization: Unknown - Past Social History Smoking Status: Heavy Smoker > 10 Cigarettes Daily - CARDIAC Hx Cardiac Disorders: No - PULMONARY Hx Bronchitis: Yes Hx Chronic Obstructive Pulmonary Disease (COPD): Yes Hx Emphysema: Yes - NEUROLOGICAL Hx Neurological Disorder: No - HEENT Hx HEENT Problems: No - RENAL Hx Chronic Kidney Disease: No - ENDOCRINE/METABOLIC Hx Endocrine Disorders: No - HEMATOLOGICAL/ONCOLOGICAL Hx Hepatitis C: Yes - INTEGUMENTARY Hx Dermatological Problems: No - MUSCULOSKELETAL/RHEUMATOLOGICAL Hx Arthritis: Yes Hx Osteoarthritis: Yes - GASTROINTESTINAL Hx Gastroesophageal Reflux: Yes - GENITOURINARY/GYNECOLOGICAL Hx Genitourinary Disorders: No - PSYCHIATRIC Hx Bipolar Disorder: Yes Hx Depression: Yes Hx Substance Use: Yes ("I don't want to talk about it") - SURGICAL HISTORY Hx Cholecystectomy: Yes - ANESTHESIA Hx Anesthesia Reactions: Yes Hx Malignant Hyperthermia: No Meds Allergies/Adverse Reactions: Allergies Allergy/AdvReac Type Severity Reaction Status Date / Time aspirin Allergy Mild RASH Verified 11/26/17 18:38 Penicillins Allergy RASH Verified 11/26/17 18:38 ibuprofen [From Motrin] AdvReac ANAPHYLAXIS Verified 11/26/17 18:38 NSAIDS (Non-Steroidal AdvReac ANAPHYLAXIS Verified 11/26/17 18:38 Anti-Inflamma quetiapine fumarate AdvReac SHORTNESS Verified 11/26/17 18:38 [From Seroquel] OF BREATH - Medications Medications: Current Medications Acetaminophen (Tylenol 325mg Tab) 650 mg PO Q6H PRN PRN Reason: Pain, moderate (4-7) Chlorpromazine (Thorazine) 50 mg PO HS [facility] PRN Reason: Protocol Clonazepam (Klonopin) 1 mg PO DAILY [facility] PRN Reason: Protocol Clonazepam (Klonopin) 2 mg PO HS [facility] PRN Reason: Protocol Folic Acid (Folic Acid) 1 mg PO DAILY [facility] Last Admin: 11/27/17 08:56 Dose: 1 mg Lamotrigine (Lamictal) 200 mg PO BID [facility] PRN Reason: Protocol Magnesium Hydroxide (Milk Of Magnesia) 30 ml PO DAILY PRN PRN Reason: Constipation Last Admin: 11/26/17 17:22 Dose: 30 ml Multivitamins (Thera Tab) 1 tab PO 0800 [facility] Last Admin: 11/27/17 08:56 Dose: 1 tab Nicotine (Nicoderm Cq) 1 patch TD DAILY [facility] Last Admin: 11/27/17 08:55 Dose: 1 patch Ondansetron HCl (Zofran Tab) 4 mg PO Q8H PRN PRN Reason: Nausea/Vomiting Polyethylene Glycol (Miralax) 17 gm PO HS [facility] Thiamine HCl (Vitamin B1 Tab) 100 mg PO DAILY [facility] Last Admin: 11/27/17 08:56 Dose: 100 mg Trazodone HCl (Desyrel) 100 mg PO HS PRN PRN Reason: Insomnia Physical Exam - Constitutional Appears: Well - Head Exam Head Exam: ATRAUMATIC, NORMAL INSPECTION, NORMOCEPHALIC - Eye Exam Eye Exam: EOMI, Normal appearance, PERRL Pupil Exam: NORMAL ACCOMODATION, PERRL - ENT Exam ENT Exam: Mucous Membranes Moist, Normal Exam - Neck Exam Neck exam: Positive for: Normal Inspection - Respiratory Exam Respiratory Exam: Clear to Auscultation Bilateral, NORMAL BREATHING PATTERN - Cardiovascular Exam Cardiovascular Exam: REGULAR RHYTHM - GI/Abdominal Exam GI & Abdominal Exam: Normal Bowel Sounds, Soft. absent: Tenderness - Extremities Exam Extremities exam: Positive for: normal inspection - Back Exam Back exam: NORMAL INSPECTION - Neurological Exam Neurological exam: Alert, CN II-XII Intact, Normal Gait, Oriented x3, Reflexes Normal - Psychiatric Exam Psychiatric exam: Normal Affect, Normal Mood - Skin Skin Exam: Dry, Intact, Normal Color, Warm Results - Vital Signs Recent Vital Signs: Last Vital Signs Temp 97.8 F 11/27/17 07:08 Pulse 84 11/27/17 07:08 Resp 18 11/27/17 07:08 BP 127/85 11/27/17 07:08 Pulse Ox - Labs Result Diagrams: 11/27/17 08:37 11/27/17 08:18 Labs: Laboratory Results - last 24 hr 11/27/17 11/27/17 11/27/17 08:18 08:18 08:37 WBC 5.2 D RBC 3.91 Hgb 13.6 Hct 40.3 MCV 103.1 MCH 34.8 MCHC 33.7 RDW 12.6 Plt Count 340 MPV 9.7 Sodium 144 Potassium 3.8 Chloride 103 Carbon Dioxide 29 Anion Gap 16 BUN 5 L Creatinine 0.6 L Est GFR ( Amer) > 60 Est GFR (Non-Af Amer) > 60 Random Glucose 108 Fasting Glucose 108 Calcium 9.9 Phosphorus 3.4 Magnesium 2.2 Total Bilirubin 0.4 AST 28 ALT 24 Alkaline Phosphatase 54 Total Protein 7.6 Albumin 4.6 Globulin 3.0 Albumin/Globulin Ratio 1.5 Triglycerides 137 Cholesterol 229 H LDL Cholesterol Direct 131 H HDL Cholesterol 67 H Free T4 0.91 TSH 3rd Generation 0.74 Assessment & Plan (1) HLD (hyperlipidemia) Assessment and Plan: was offered to start low dose lipitor but would rather try to fix her cholesterol with diet and exercise. We counselled her on this. She will follow up with her regular doctor for a fasting lipid panel. Status: Chronic Priority: High (2) Tobacco abuse Assessment and Plan: Counselled on smoking cessation Status: Chronic Priority: High - Assessment and Plan (Free Text) Assessment: Signing off. Please reconsult if necessary. <ArunaLacie footedarrin - Last Filed: 11/27/17 13:50> Meds - Medications Medications: Current Medications Acetaminophen (Tylenol 325mg Tab) 650 mg PO Q6H PRN PRN Reason: Pain, moderate (4-7) Chlorpromazine (Thorazine) 50 mg PO HS [facility] PRN Reason: Protocol Clonazepam (Klonopin) 1 mg PO DAILY [facility] PRN Reason: Protocol Clonazepam (Klonopin) 2 mg PO HS [facility] PRN Reason: Protocol Folic Acid (Folic Acid) 1 mg PO DAILY [facility] Last Admin: 11/27/17 08:56 Dose: 1 mg Lamotrigine (Lamictal) 200 mg PO BID [facility] PRN Reason: Protocol Magnesium Hydroxide (Milk Of Magnesia) 30 ml PO DAILY PRN PRN Reason: Constipation Last Admin: 11/26/17 17:22 Dose: 30 ml Multivitamins (Thera Tab) 1 tab PO 0800 [facility] Last Admin: 11/27/17 08:56 Dose: 1 tab Nicotine (Nicoderm Cq) 1 patch TD DAILY [facility] Last Admin: 11/27/17 08:55 Dose: 1 patch Ondansetron HCl (Zofran Tab) 4 mg PO Q8H PRN PRN Reason: Nausea/Vomiting Polyethylene Glycol (Miralax) 17 gm PO HS [facility] Thiamine HCl (Vitamin B1 Tab) 100 mg PO DAILY [facility] Last Admin: 11/27/17 08:56 Dose: 100 mg Trazodone HCl (Desyrel) 100 mg PO HS PRN PRN Reason: Insomnia Results - Vital Signs Recent Vital Signs: Last Vital Signs Temp 97.8 F 11/27/17 07:08 Pulse 84 11/27/17 07:08 Resp 18 11/27/17 07:08 BP 127/85 11/27/17 07:08 Pulse Ox - Labs Result Diagrams: 11/27/17 08:37 11/27/17 08:18 Labs: Laboratory Results - last 24 hr 11/27/17 11/27/1711/27/18 08:18 08:18 08:37 WBC 5.2 D RBC 3.91 Hgb 13.6 Hct 40.3 MCV 103.1 MCH 34.8 MCHC 33.7 RDW 12.6 Plt Count 340 MPV 9.7 Sodium 144 Potassium 3.8 Chloride 103 Carbon Dioxide 29 Anion Gap 16 BUN 5 L Creatinine 0.6 L Est GFR ( Amer) > 60 Est GFR (Non-Af Amer) > 60 Random Glucose 108 Fasting Glucose 108 Calcium 9.9 Phosphorus 3.4 Magnesium 2.2 Total Bilirubin 0.4 AST 28 ALT 24 Alkaline Phosphatase 54 Total Protein 7.6 Albumin 4.6 Globulin 3.0 Albumin/Globulin Ratio 1.5 Triglycerides 137 Cholesterol 229 H LDL Cholesterol Direct 131 H HDL Cholesterol 67 H Free T4 0.91 TSH 3rd Generation 0.74 Attending/Attestation - Attestation I have personally seen and examined this patient.: Yes I have fully participated in the care of the patient.: Yes I have reviewed all pertinent clinical information: Yes Notes (Text): 11/27/17 13:42 Medical record note made by the resident after discussion with my direction and input after the patient was personally seen and examined by me. I have reviewed the chart and agree that the record accurately reflects by personal performance of the history, physical exam, data review, and medical decision-making, in the course for the patient. I have also personally directed the plan of care. 52 yo F with PMH of depression, bipolar disorder, anxiety, heroin abuse, alcohol abuse, and tobacco abuse was initially admitted [place] [facility] [place] after she was found unresponsive at her home. She was found to have abused alcohol and heroin, reportedly in an attempt to self-harm. She was monitored in ICU while on a Narcan drip, and then was transferred to medical floor.She remain stable on medical floor and was discharged to Psychiatry. She has elevated LDH and elevated cholesterol .[place] Coronary score is 3.2 %.Patient has been advised low cholesterol diet.She has been counseled to stop smoking and alcohol abuse. There is no active medical issue at this time.We will sign off.Please call us back if any question Management plan was discussed in detail with patient. Education was provided 11/27/17 13:49 11/27/17 13:49
[2017-11-27] MEDS: POLYETHYLENE GLYCOL 3350 17 GM/Dose PACKET PO SCH (21:17)
[2017-11-28] MEDS: Magnesium Hydroxide Susp 30 ml UD PO PRN ×3 (07:07→18:18)
[2017-11-28] MEDS: Multivitamin Therapeutic Tab PO SCH (09:42)
--- NOTE | 2017-11-28 10:50 | PCM.PYCHPN ---
Psychiatric Progress Note - Psychiatric Progress Note Patient seen today, length of contact: 25 MINUTES Patient Chief Complaint: "getting better" Problems Identified/Issues Discussed: History of Present Illness and Precipitating Events: Patient is a 52-year-old white female with a psychiatric history of bipolar disorder, panic disorder disorder and borderline personality disorder, numerous psychiatric admissions-most recently hospitalized at [facility] in October 2016 x1 day and most recently hospitalized at [facility] in [place] 2016, reportedly more than 2000 prior suicide attempts [per patient], history of ECT in [place] , numerous failed medication trials, in treatment with Dr. Avery and reportedly compliant with her medications of klonopin, thorazine and Lamictal, who~ was admitted to the medical floor on November 25 after impulsively tried to kill herself with heroin and vodka after an argument with her adult son. I was consult it to assess patient while she was being medically treated in the CCU and subsequently on the medical floor. I saw her on two occasions November 25 and November 26. On both occasions patient reported helplessness, hopelessness low energy, excessive anxiety, low frustration tolerance, unhappiness, moodiness poor sleep and wishes. Patient reported her main stressor was her concern over her sons mental health. She indicates that he inherited her depression and she doesnt know how to help him. She also fears that he is abusing Adderall prescribed by his doctor. Patient reports that she snorted a bag of heroin and drank a lot of vodka on the day of her admission. States she did this with the intent to . Denied abusing these substances prior to incident (though with history of heroin abuse a few years ago). She could not contract for safety and required 1-to-1 on both days of her medical admission. I met with patient in the hallway this morning. She presents as groomed and well -oriented to month, year, circumstances and location. Patient reports she is feeling better and currently feels safe on the unit. She appears anxious but less emotional than prior days on the medical floor. Her thought process is coherent without evidence of any perceptual disturbance She would like for her medications to be titrated to their former doses. Specifically klonopin , Thorazine 100 HS, Lamictal 200 bid, trazodone 100 mg HS prn. Patient denies any side effects from her medications or any new discomfort or pain. Thats far her behavior has been in control and there have been no behavioral issues. SOCIAL HISTORY Patient was born and raised in [place]. She is and has two adult children 30-year-old adult son and a 25-year-old daughter. She generally lives by herself however indicates that her 30-year-old son would likely move in with her soon due to his mental health issues. Patient is on disability and does not work. Patient denies history of drug or alcohol issues though she admits to recreational heroin use a few years ago for a period of approximately a year. Patient also reports that she drinks 1-2 beers a week and denies any excessive or binge drinking unless she is trying to commit suicide. Patient denies any history of detoxes or rehabs. PSYCHIATRIC HISTORY Patient reports a history of numerous admissions including [facility], [facility]], [facility] as well as [place] for ECT. She denies history of involuntary commitment. She reports greater than 2000 prior suicide attempts. Patient reports that she is an outpatient treatment with Dr. Willis and she is currently being prescribed klonopin 1 mg am and 2 mg HS, lamictal 200 bid, Thorazine 100 mg HS and Trazodone 100 mg HS prn. Patients most recent hospitalization was at [facility] for approximately one day. Patient admitted that she was never suicidal and made statements about suicide to gain admission to the hospital so her medications could be restarted. . Discharge medications include Thorazine 100 mg HS Lamictal 100 mg BID trazodone 50 mg HS PRN and klonopin 1 mg a.m. and 2 mg HS Patient reports numerous failed medication trials and indicates that SSRIs cause her to be manic and suicidal. PROGRESS NOTE I met with patient in the hallway again this morning. She presents as groomed and well-oriented to month, year, circumstances and location. Patient reports she is feeling better and still feels safe on the unit. She is calm and less anxious than yesterday. She is also a lot less emotional than prior days on the medical floor. Her thought process is coherent without evidence of any perceptual disturbance. Patient is communicative and can express her needs well. Patient denies any side effects from her medications or any new discomfort or pain. Tolerating medication combination well without excessive sedation. She would like thorazine to be titrated up to prior dose of 100 mg HS to help with sleep and mood control. Thus far her behavior has been in control and there have been no behavioral issues. Diagnostic Results: Bipolar Disorder by history Borderline Personality Disorder Panic Disorder r/o contribution of opioid induced mood disorder (if patient is abusing) r/o contribution of alcohol induced mood disorder (if patient is abusing) Medication Change: Yes (thorazine increased to 100 mg HS on 11/28/17) Medical Record Reviewed: Yes Mental Status Examination - Cognitive Function Orientation: Person, Place, Situation Memory: Intact Attention: WNL Concentration: WNL Association: WNL Fund of Knowledge: WNL - Mood Mood: Depressed (better), Anxious - Affect Affect: Broad (still labile but emotional control is improving) - Speech Speech: Appropriate - Formal Thought Process Formal Thought Process: No Impairment - Suicidal Ideation Suicidal Ideation: No - Homicidal Ideation Homicidal Ideation: No Goal/Treatment Plan - Goal/Treatment Plan Progress Toward Problem(s) and Goals/Treatment Plan: * Group, milieu and supportive treatment Lamictal 200 mg po bid for mood control Klonopin 1 mg AM and 2 mg HS for anxiety and mood control Thorazine increased to 100 mg HS on November 28, 2017 Trazodone 100 mg HS prn for depression and off-label for insomnia Appreciate f/u by Dr. Espinoza on 11/27/17~no new recommendations, signed off. Vitals reviewed and noted below: Selected Entries 11/28/17 06:37 Temperature 98.3 F Pulse Rate 93 H Respiratory 19 Rate Blood Pressure 114/77 * Recent floor labs noted below: Laboratory Results - last 24 hr 11/27/17 11/27/17 11/27/17 08:18 08:18 08:37 WBC 5.2 D RBC 3.91 Hgb 13.6 Hct 40.3 MCV 103.1 MCH 34.8 MCHC 33.7 RDW 12.6 Plt Count 340 MPV 9.7 Sodium 144 Potassium 3.8 Chloride 103 Carbon Dioxide 29 Anion Gap 16 BUN 5 L Creatinine 0.6 L Est GFR ( Amer) > 60 Est GFR (Non-Af Amer) > 60 Random Glucose 108 Fasting Glucose 108 Calcium 9.9 Phosphorus 3.4 Magnesium 2.2 Total Bilirubin 0.4 AST 28 ALT 24 Alkaline Phosphatase 54 Total Protein 7.6 Albumin 4.6 Globulin 3.0 Albumin/Globulin Ratio 1.5 Triglycerides 137 Cholesterol 229 H LDL Cholesterol Direct 131 H HDL Cholesterol 67 H Free T4 0.91 TSH 3rd Generation 0.74
[2017-11-28] MEDS: POLYETHYLENE GLYCOL 3350 17 GM/Dose PACKET PO SCH (21:06)
[2017-11-29 07:18] VITALS: BP 104/77; PULSE 85; RESP 20; TEMP 98.6
[2017-11-29] MEDS: Magnesium Hydroxide Susp 30 ml UD PO PRN (07:24)
[2017-11-29] MEDS: Multivitamin Therapeutic Tab PO SCH (08:25)
--- NOTE | 2017-11-29 08:46 | CON ---
DATE: 11/26/2017 HISTORY OF PRESENT ILLNESS: Patient is a 52-year-old white female with a history of major depression and severe borderline personality disorder, and numerous psychiatric hospitalizations as well as failed medication trial. Psychiatry is following up on the medical floor after she impulsively snorted heroin and binged on alcohol after an argument with her son. I reviewed recent notes and I met with the patient at the bed again today. Patient remains oriented to month, year, location, and circumstances. She continues to report that she is depressed. She does not feel safe about her impulses at this time and she continues to commit to sign into the psychiatric voluntary unit once she is medically stabilized. Her thought process is coherent. Denies hallucinations. Overt delusions were not elucidated. Affect is constricted and tired. Patient in general has been cooperative with medical team and staff, however, she does complain of excruciating pain after heparin was started for her, which appears being followed up by medical team with head CT scan. Patient continues to report stress and depression. She does not feel comfortable on the unit, does not have any personal belonging and patient is upset and tearful about her son not coming back to bring her clothes. Apparently, the son has mental health issues and his phobia prevents him from leaving the home to help her. Patient's insight and judgement are poor. Impulse control is unpredictable. Vital signs and labs were reviewed by this provider. RELEVANT PSYCHIATRIC MEDICATIONS: Include Thorazine 100 at bedtime, Klonopin in a.m. and at bedtime, Lamictal 150 mg p.o. b.i.d., and trazodone 50 mg at bedtime p.r.n. IMPRESSION: Major depressive disorder and severe borderline personality disorder, rule out opiate and alcohol abuse. RECOMMENDATIONS: We will continue with current medications, however, we will increase Klonopin to 1 mg a.m and at bedtime as patient complains of anxiety, however, I would not increase to any further than that dose. I will also increase trazodone to 100 mg at bedtime p.r.n. Psychiatry will continue to follow up with the patient on the medical floor until she is medically stabilized. Thereafter, she is to be transferred to the Psychiatric unit for psychiatric stabilization. Patient is not psychiatrically cleared for discharge. She may not leave [place]. Please continue one-to-one observation as the patient cannot commit to safety on the unit. Maykel Ruiz MD
--- NOTE | 2017-11-29 15:59 | PCM.PYCHDC ---
Mental Status Examination - Mental Status Examination Orientation: Person, Place, Situation, Time Memory: Intact Mood: Neutral Affect: Constricted (but reactive, mood congruent) Speech: Appropriate Attention: WNL (from mood congruent) Concentration: WNL Association: WNL Fund of Knowledge: WNL Formal Thought Process: No Impairment Description of patient's judgement and insight: Pt has improved insight into mental and medical illness, pt was compliant with medications and unit rules and regulations, pt was going to groups, was calm, cooperative, socially appropriate, no behavioral incidents, no agitation, no aggression. Psychotic Thoughts and Behaviors: Pt denied v/a/t hallucinations, denied paranoid ideations, pt does not appear to be psychotic, and thought process is goal directed. Suicidal Ideation: No Current Homicidal Ideation?: No Plan: pt adamantly denied thoughts of harming self or others denied intent or plan. Discharge Summary - Discharge Note Reason for Hospitalization: pt was transferred from the medical side where she was admitted for possible suicidal attempt, pt overdosed on vodka and "one line of heroine", pt reported that she wanted to end up her life to , but denied to this typewriter tester, pt said that she wanted to get high on drugs and cope better with stress. Psychiatric History (includes Medical, Family, Personal Hx): multiple psych admissions, multiple ?suicidal attempts Laboratory Data: 11/27/17 08:37 11/27/17 08:18 Lab Results 11/27/17 08:37: WBC 5.2 D, RBC 3.91, Hgb 13.6, Hct 40.3, MCV 103.1, MCH 34.8, MCHC 33.7, RDW 12.6, Plt Count 340, MPV 9.7 11/27/17 08:18: RPR Nonreactive 11/27/17 08:18: Free T4 0.91, TSH 3rd Generation 0.74 11/27/17 08:18: Sodium 144, Potassium 3.8, Chloride 103, Carbon Dioxide 29, Anion Gap 16, BUN 5 L, Creatinine 0.6 L, Est GFR ( Amer) > 60, Est GFR ( Non-Af Amer) > 60, Random Glucose 108, Fasting Glucose 108, Calcium 9.9, Phosphorus 3.4, Magnesium 2.2, Total Bilirubin 0.4, AST 28, ALT 24, Alkaline Phosphatase 54, Total Protein 7.6, Albumin 4.6, Globulin 3.0, Albumin/Globulin Ratio 1.5, Triglycerides 137, Cholesterol 229 H, LDL Cholesterol Direct 131 H, HDL Cholesterol 67 H Vital Signs Temp Pulse Resp BP 11/29/17 07:17 98.6 F 85 20 104/77 11/28/17 15:41 94 H 123/84 11/28/17 06:37 98.3 F 93 H 19 114/77 11/27/17 16:00 93 H 117/83 11/27/17 07:08 97.8 F 84 18 127/85 Consultations:: List each consultation separately and include: 1. Reason for request. 2. Findings. 3. Follow-up Consultations: Patient was medically stable, was transferred from the medical floor uneventfully Summary of Hospital Course include:: 1. Description of specific treatment plan utilized for patients during their course of treatmen. 2. Summarize the time- course for resolution of acute symptoms and/or regressed behaviors. 3. Describe issues identified and worked on during hospitalization. 4. Describe medication utilized. 5. Describe medical problems identified and treated. 6. Reassessment of suicide risk Summary of Hospital Course: Patient is a 52-year-old white female with a psychiatric history of bipolar disorder, panic disorder disorder and borderline personality disorder, numerous psychiatric admissions-most recently hospitalized at [facility] in October 2016 x1 day and most recently hospitalized at [facility] in April 2016, reportedly more than 2000 prior suicide attempts [per patient], history of ECT in [place], numerous failed medication trials, in treatment with Dr. Avery and reportedly compliant with her medications of klonopin, thorazine and Lamictal, who~ was admitted to the medical floor on November 25 after impulsively tried to kill herself with heroin and vodka after an argument with her adult son. consulted on this patient over the weekend, while pt was in CCU and subsequently on the medical floor. saw pt on two occasions November 25 and November 26. On both occasions patient reported helplessness, hopelessness low energy , excessive anxiety, low frustration tolerance, unhappiness, moodiness poor sleep and wishes. Patient reported her main stressor was her concern over her sons mental health. She indicates that he inherited her depression and she doesnt know how to help him. She also fears that he is abusing Adderall prescribed by his doctor. during the treatment team meeting today with with this typewriter tester pt said that she did NOT try to kill herself but "I wanted to calm myself down", pt said that she passed out because of combination of vodka and heroin, but adamantly denied thoughts of harming self. pt said that "I feel happy to be alive, I have different view over my life now, I cannot disappoint my kids and grand kids". pt reported that her older son moved in with her, of note this typewriter tester is very familiar with this pt and her family for years, family dynamic is poor, pt is aware of that, this typewriter tester educated pt that it would be better if pt would live by herself, but pt said that she cannot let her son to become a homeless, pt said that "now we are going to make an official agreement and he needs to follow my rules". 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 as per staff pt was calm/ cooperative, socially appropriate, no agitation or aggression. Her thought process is coherent without evidence of any perceptual disturbance pt does not want meds to be adjusted. "I have all meds at home". Patient denies any side effects from her medications or any new discomfort or pain. Thats far her behavior has been in control and there have been no behavioral issues. pt said she wants to be followed up with suboxone clinic and attends [facility], AA and NA meetings. as per staff pt had not behavioral outburst during this admission. At the time of the discharge pt denied been depressed, denied thoughts of harming self or others, denied psychotic symptoms, and pt does not appeared to be psychotic, denied been anxious, pt is not in imminent danger to self or others, will be following up at [facility] information about follow up appointment , time and address provided to the pt, it is patient responsibility to follow up with outpatient clinic, PMD as well as specialists (see SW note for more detailed information). In case pt will need to obtain results of studies pending at discharge pt was provided with contact information of Psychiatric Inpatient unit [phone] as well as Medical Record Department [phone]. Nicotine patch was offered, but pt refused Naltrexone treatment is not indicated, pt wants to be f/u with suboxone clinic Counseling about smoking and alcohol cessation provided AA meetings as well as smoking cessation treatment program information was provided by the no prescriptions provided, pt said she has all meds at home Pt was educated about safety plan in case of worsening of symptoms or in case of suicidal or homicidal ideation call 911 or go to the nearest ER, also was educated to take meds as prescribed and stay away from drugs, pt verbalized understanding. - Diagnosis (1) Mood disorder Status: Chronic Priority: Medium (2) Opioid abuse Status: Chronic Priority: Low (3) Alcohol abuse Status: Chronic Priority: Low (4) Borderline personality disorder Status: Chronic Priority: High - Final Diagnosis (DSM 5) Condition upon Discharge: IMPROVED Disposition: AGAINST MEDICAL ADVICE Follow-up Treatment Plan: At the time of the discharge pt denied been depressed, denied thoughts of harming self or others, denied psychotic symptoms, and pt does not appeared to be psychotic, denied been anxious, pt is not in imminent danger to self or others, will be following up at [facility] information about follow up appointment , time and address provided to the pt, it is patient responsibility to follow up with outpatient clinic, PMD as well as specialists (see note for more detailed information). In case pt will need to obtain results of studies pending at discharge pt was provided with contact information of Psychiatric Inpatient unit [phone] as well as Medical Record Department [phone]. Nicotine patch was offered, but pt refused Naltrexone treatment is not indicated, pt wants to be f/u with suboxone clinic Counseling about smoking and alcohol cessation provided AA meetings as well as smoking cessation treatment program information was provided by the no prescriptions provided, pt said she has all meds at home Pt was educated about safety plan in case of worsening of symptoms or in case of suicidal or homicidal ideation call 911 or go to the nearest ER, also was educated to take meds as prescribed and stay away from drugs, pt verbalized understanding. - Smoking Cessation Smoking Cessation Medication prescribed: No - Antipsychotic Medications Pt discharged on 2 or more routine antipsychotic medications: No
== END 2017-11-29 14:49 | disposition left against medical advice (07) | DRG 430 ==
LOC: PSYC 15:35
PROVIDERS: ADMIT Psychiatry & Neurology Psychiatry; ATTEND Psychiatry & Neurology Psychiatry
PROC: GZ3ZZZZ Medication Management (ICD-10-PCS; principal; 2017-11-26)
DX: F31.9 Bipolar disorder, unspecified (principal); F11.10 Opioid abuse, uncomplicated; F60.3 Borderline personality disorder; F41.0 Panic disorder [episodic paroxysmal anxiety]; F10.10 Alcohol abuse, uncomplicated; K21.9 Gastro-esophageal reflux disease without esophagitis; F17.210 Nicotine dependence, cigarettes, uncomplicated; Z91.5 Personal history of self-harm

== ENCOUNTER 2018-11-18 18:12 | Inpatient (IN) | payer MEDICAID ==
[2018-11-18 18:13] VITALS: BMI 22.1
--- NOTE | 2018-11-18 18:37 | ED PDOC ---
Arrival/HPI - General Chief Complaint: Alcohol Ingestion Historian: EMS EM Caveat: Intoxicated - History of Present Illness Narrative History of Present Illness (Text): 11/18/18 18:30 53 y/o female, pmh including HLD, psychiatric including alcohol abuse/suicidal ideation/borderline personality/bipolar, allergic to aspirin/motrin/penicillin, +etoh on breath, biba for overdose with empty bottle of the vodka and an empty bottle of thorazine 100mg po and klonipin 1mg po with unknown amount the patient ingested. Pt. is suicidal as per the EMS transporter. Limited HPI can be obtained as the patient is intoxicated. Past Medical History - Provider Review Nursing Documentation Reviewed: Yes - Infectious Disease Hx of Infectious Diseases: None - Tetanus Immunization Tetanus Immunization: Unknown - Reproductive Menopause: Yes - Past Medical History Past Medical History: No Previous - Cardiac Hx Cardiac Disorders: No - Pulmonary Hx Bronchitis: Yes Hx Chronic Obstructive Pulmonary Disease (COPD): Yes Hx Emphysema: Yes - Neurological Hx Neurological Disorder: No - HEENT Hx HEENT Disorder: No - Renal Hx Renal Disorder: No - Endocrine/Metabolic Hx Endocrine Disorders: No - Hematological/Oncological Hx Hepatitis C: Yes - Integumentary Hx Dermatological Disorder: No - Musculoskeletal/Rheumatological Hx Arthritis: Yes Hx Osteoarthritis: Yes - Gastrointestinal Hx Gastroesophageal Reflux: Yes - Genitourinary/Gynecological Hx Genitourinary Disorders: No - Psychiatric Hx Bipolar Disorder: Yes Hx Depression: Yes Hx Substance Use: Yes ("I don't want to talk about it") - Surgical History Hx Cholecystectomy: Yes - Anesthesia Hx Anesthesia: Yes Hx Anesthesia Reactions: Yes Hx Malignant Hyperthermia: No - Suicidal Assessment Feels Threatened In Home Enviroment: No Family/Social History - Physician Review Nursing Documentation Reviewed: Yes Family/Social History: Unknown Family HX Smoking Status: Heavy Smoker > 10 Cigarettes Daily Hx Alcohol Use: Yes Frequency of alcohol use: Daily Hx Substance Use: Yes ("I don't want to talk about it") Hx Substance Use Treatment: No Allergies/Home Meds Allergies/Adverse Reactions: Allergies aspirin Allergy (Mild, Verified 11/26/17 18:38) RASH Penicillins Allergy (Verified 11/26/17 18:38) RASH ibuprofen [From Motrin] Adverse Reaction (Verified 11/26/17 18:38) ANAPHYLAXIS NSAIDS (Non-Steroidal Anti-Inflamma Adverse Reaction (Verified 11/26/17 18:38) ANAPHYLAXIS quetiapine fumarate [From Seroquel] Adverse Reaction (Verified 11/26/17 18:38) SHORTNESS OF BREATH Review of Systems - Review of Systems Systems not reviewed;Unavailable: Intoxicated Physical Exam Vital Signs Reviewed: Yes Vital Signs Temp Pulse Resp BP Pulse Ox 11/18/18 18:21 97.8 F 113 H 16 104/73 95 Temperature: Afebrile Blood Pressure: Normal Pulse: Tachycardic Respiratory Rate: Normal Appearance: Positive for: Well-Appearing, Non-Toxic, Comfortable Pain Distress: None Finger Stick Blood Glucose: 140 - Systems Exam Head: Present: Atraumatic, Normocephalic, Other (no facial bony tenderness or swelling. ). No: Tenderness, Contusion, Swelling, Ecchymosis, Abrasion, Laceration Pupils: Present: PERRL Extroacular Muscles: Present: EOMI Conjunctiva: Present: Normal Ears: Present: NORMAL TM, Normal Canal. No: Erythema Mouth: Present: Moist Mucous Membranes Pharnyx: No: ERYTHEMA, EXUDATE, TONSILS ENLARGED Nose (External): Present: Atraumatic. No: Abrasion, Contusion, Laceration, Lesions, Other Nose (Internal): Present: Normal Inspection, No Active Bleeding. No: Rhinorrhea, Septal Deviation, Septal Hematoma, Epistaxis Neck: Present: Normal Range of Motion, Trachea Midline. No: Meningeal Signs, MIDLINE TENDERNESS, Paraspinal Tenderness, Lymphadenopathy Respiratory/Chest: Present: Clear to Auscultation, Good Air Exchange. No: Respiratory Distress, Accessory Muscle Use, Wheezes, Decreased Breath Sounds, Rales, Retracting, Rhonchi, Tachypneic, Tender to Palpation Cardiovascular: Present: Regular Rate and Rhythm, Normal S1, S2. No: Murmurs Abdomen: No: Tenderness, Distention, Peritoneal Signs Back: Present: Normal Inspection. No: CVA Tenderness, Midline Tenderness, Paraspinal Tenderness, Pain with Leg Raise, Decubitus Ulcer Upper Extremity: Present: Normal Inspection. No: Cyanosis, Edema Lower Extremity: Present: Normal Inspection, Normal ROM, Capillary Refill < 2 s. No: Edema, Deformity Neurological: Present: Other (limited neurological exam as she is intoxicated) Skin: Present: Warm, Dry, Normal Color. No: Rashes Psychiatric: Present: Alert, Intoxicated Medical Decision Making ED Course and Treatment: 11/18/18 18:45 -Labs -ekg -CT head -Chest xray -IVF -One on One/oxygen -control room helper -Poison control -Observe and reassess 11/18/18 20:52 -Poison control contacted, they agreed on the order and recommend to repeat ekg 4-6 hours/QRS changes/agitation/urinary retention and close monitoring with no reversing agent indicated. -EKG: Sinus Tachycardia @ 112 BPM, no St elevation or depression, no T wave inversion, normal IA/QRS intervals -Chest xray ER wet read: no active disease -CT head No acute intracranial abnormality. -ABG: PH 7.43, Co2 44, HCO3 29 -Lactic acid 2.4, afebrile, pt. on nasal cannula -Labs are non-significant -Alcohol 236, banana bag ordered -Acetaminophen within normal limit -Salicylate within normal limit -UA show no UTI -UDS 11/18/18 20:53 -I spoke to the medical pathology teacher Dr. Vernon and Dr. Lo (night hospitalist/ICU attending), discussed about the case/labs/radiology results, agreed to admit telemetry - Critical Care Critical Care Minutes: 30 minutes Critical Care Time: Unstable Narrative Critical Care (Text): 11/18/18 18:48 overdose, cardiac monitoring, multiple rounds of visit, poison control consult, ICU consult, admissions - RAD Interpretation Radiology Orders: EXAM: CT Head Without IV contrast. CLINICAL HISTORY: AMS OVERDOSE TECHNIQUE: Axial computed tomography images of the head/brain without intravenous contrast. COMPARISON: None provided. FINDINGS: BRAIN: No acute intraparenchymal hemorrhage. No mass lesion. No CT evidence for acute territorial infarct. No midline shift or extra-axial collections. VENTRICLES: No hydrocephalus. ORBITS: The orbits are unremarkable. SINUSES AND MASTOIDS: The paranasal sinuses and mastoid air cells are clear. BONES: No fracture. SOFT TISSUES: Unremarkable. IMPRESSION: No acute intracranial abnormality. Electronically signed on November 18, 2018 8:20:47 PM EDT by: Issa Munroe M.D., M.B.A., Certified By [employer] Trained MRI and CT Specialist Chest xray: General Doc: Radiologist - PA / [employer] WRITERS / Resident Statement / has reviewed & agrees with the documentation as recorded. Disposition/Present on Arrival - Present on Arrival Any Indicators Present on Arrival: No History of DVT/PE: No History of Uncontrolled Diabetes: No Urinary Catheter: No History of Decub. Ulcer: No History Surgical Site Infection Following: None - Disposition Have Diagnosis and Disposition been Completed?: Yes Diagnosis: Overdose, Alcohol intoxication Disposition: HOSPITALIZED Disposition Time: 19:13 Patient Plan: Admission, Telemetry Patient Problems: Current Active Problems Problem Status Onset Overdose Acute Alcohol intoxication Acute Condition: GUARDED Forms: [employer] (Filipino)
[2018-11-18] MEDS ORDERED: Sodium Chloride 0.9% 1,000 ML IV STA (18:48)
[2018-11-18 19:02] LABS: BASO # 0.01 K/mm3 (0.0-2.0); BASO % 0.2 % (0.0-3.0); EOS % 0.2 % (1.5-5.0); HEMOGLOBIN 13.3 g/dL (12.0-16.0); LYMPH # 1.4 (1.2-3.4); MEAN CELL VOLUME 99.5 fl (80.0-105.0); MEAN CORPUSCULAR HGB CONC 33.2 g/dl (31.0-37.0); MEAN PLATELET VOLUME 9.6 fl (7.0-11.0); MONO # 0.2 (0.1-0.6); MONO % 2.8 % (1.0-6.0); RBC 4.03 10^6/uL (3.5-6.1); RED CELL DISTRIBUTION WIDTH 13.1 % (11.5-14.5); WHITE BLOOD COUNT 5.7 10^3/uL (4.5-11.0)
[2018-11-18 19:04] LABS: ARTERIAL BLOOD GAS HCO3 29.2 mmol/L (21-28); ARTERIAL BLOOD GAS O2 SAT 95.1 % (95-98); ARTERIAL BLOOD GAS PCO2 44 mm/Hg (35-45); ARTERIAL BLOOD GAS PH 7.43 (7.35-7.45); ARTERIAL BLOOD GAS TCO2 30.6 mmol.L (22-28)
[2018-11-18 19:15] LABS: ALB/GLOB RATIO 1.4 (1.1-1.8); ALBUMIN 4.1 g/dL (3.0-4.8); ALT/SGPT 21 U/L (7-56); AST/SGOT 39 U/L (14-36); BLOOD UREA NITROGEN 5 mg/dL (7-21); CALCIUM 9.4 mg/dL (8.4-10.5); GFR NON-AFRICAN AMERICAN > 60
[2018-11-18 19:16] LABS: ACETAMINOPHEN < 10.0 ug/ml (10.0-20.0); SALICYLATE < 1 mg/dL (2.0-20.0)
[2018-11-18 20:22] LABS: PH,URINE 6.5 (4.7-8.0); URINE BILIRUBIN NEGATIVE (NEGATIVE); URINE BLOOD NEGATIVE (NEGATIVE); URINE GLUCOSE (UA) NEGATIVE (NEGATIVE); URINE LEUKOCYTE ESTERASE NEGATIVE Leu/uL (NEGATIVE); URINE PROTEIN NEGATIVE mg/dL (<30 mg/dL); URINE UROBILINOGEN 0.2 E.U./dL (<1 E.U./dL)
[2018-11-18 20:23] LABS: URINE APPEARANCE CLEAR (CLEAR); URINE COLOR LIGHT YELLOW (YELLOW)
[2018-11-18 20:41] LABS: BENZODIAZEPINES, UR NEGATIVE (NEGATIVE)
[2018-11-18 21:03] LABS: BARBITURATES, UR NEGATIVE (NEGATIVE); OPIATES, UR POSITIVE (NEGATIVE); PHENCYCLIDINE, UR NEGATIVE (NEGATIVE)
[2018-11-18] MEDS: Folic Acid 1 MG, Thiamine 100 MG, Multivitamin (MVI) 10 ML in Dextrose 5% In Water 1,00... IV SCH (21:09)
--- NOTE | 2018-11-19 00:20 | CP.PCM.HP ---
<Saulo Nickerson - Last Filed: 11/19/18 00:27> History of Present Illness - History of Present Illness History of Present Illness: Resident History & Physical for Hospitalist Service Patient is a 53 year old female with past medical history of hepatitis C, heroin/alcohol/tobacco abuse, mutiple psychiatric admissions presenting to ED with altered mental status. Patient was found at home with an empty bottles of vodka, thorazine, and klonopin. It is unknown the amount patient had ingested. Currently patient is drowsy and a poor historian, however she admits she has been feeling suicidal since 2004. PMH: hepatitis C, depression, bipolar disorder, anxiety PSH: unable to be obtained SHx: 40 year pack smoking history, heroin/alcohol/tobacco abuse FHx: unable to be obtained Allergies, aspirin, penicillins, ibuprofen Present on Admission - Present on Admission Any Indicators Present on Admission: No Review of Systems - Review of Systems Systems not reviewed;Unavailable: Intoxicated Past Patient History - Infectious Disease Hx of Infectious Diseases: None - Tetanus Immunizations Tetanus Immunization: Unknown - Past Social History Smoking Status: Heavy Smoker > 10 Cigarettes Daily - CARDIAC Hx Cardiac Disorders: No - PULMONARY Hx Bronchitis: Yes Hx Chronic Obstructive Pulmonary Disease (COPD): Yes Hx Emphysema: Yes - NEUROLOGICAL Hx Neurological Disorder: No - HEENT Hx HEENT Problems: No - RENAL Hx Chronic Kidney Disease: No - ENDOCRINE/METABOLIC Hx Endocrine Disorders: No - HEMATOLOGICAL/ONCOLOGICAL Hx Hepatitis C: Yes - INTEGUMENTARY Hx Dermatological Problems: No - MUSCULOSKELETAL/RHEUMATOLOGICAL Hx Arthritis: Yes Hx Osteoarthritis: Yes - GASTROINTESTINAL Hx Gastroesophageal Reflux: Yes - GENITOURINARY/GYNECOLOGICAL Hx Genitourinary Disorders: No - PSYCHIATRIC Hx Bipolar Disorder: Yes Hx Depression: Yes Hx Substance Use: Yes ("I don't want to talk about it") - SURGICAL HISTORY Hx Cholecystectomy: Yes - ANESTHESIA Hx Anesthesia: Yes Hx Anesthesia Reactions: Yes Hx Malignant Hyperthermia: No Meds Allergies/Adverse Reactions: Allergies Allergy/AdvReac Type Severity Reaction Status Date / Time aspirin Allergy Mild RASH Verified 11/26/17 18:38 Penicillins Allergy RASH Verified 11/26/17 18:38 ibuprofen [From Motrin] AdvReac ANAPHYLAXIS Verified 11/26/17 18:38 NSAIDS (Non-Steroidal AdvReac ANAPHYLAXIS Verified 11/26/17 18:38 Anti-Inflamma quetiapine fumarate AdvReac SHORTNESS Verified 11/26/17 18:38 [From Seroquel] OF BREATH Physical Exam - Constitutional Appears: No Acute Distress - Head Exam Head Exam: ATRAUMATIC, NORMOCEPHALIC - Eye Exam Eye Exam: Normal appearance - ENT Exam ENT Exam: Mucous Membranes Moist - Respiratory Exam Respiratory Exam: Clear to Auscultation Bilateral, NORMAL BREATHING PATTERN. absent: Accessory Muscle Use, Respiratory Distress - Cardiovascular Exam Cardiovascular Exam: REGULAR RHYTHM, +S1, +S2. absent: Tachycardia, Systolic Murmur - GI/Abdominal Exam GI & Abdominal Exam: Normal Bowel Sounds, Soft. absent: Tenderness - Neurological Exam Additional comments: unable to assess - Skin Skin Exam: Dry, Intact, Warm Results - Vital Signs Recent Vital Signs: Last Vital Signs Temp 98.1 F 11/18/18 23:41 Pulse 82 11/18/18 23:41 Resp 18 11/18/18 23:41 BP 111/71 11/18/18 23:41 Pulse Ox 98 11/18/18 23:41 - Labs Result Diagrams: 11/18/18 18:50 11/18/18 18:50 Labs: Laboratory Results - last 24 hr 11/18/18 11/18/18 11/18/18 18:50 18:50 18:50 WBC 5.7 RBC 4.03 Hgb 13.3 Hct 40.1 MCV 99.5 D MCH 33.0 MCHC 33.2 RDW 13.1 Plt Count 317 MPV 9.6 Neut % (Auto) 72.8 H Lymph % (Auto) 24.0 [place] % (Auto) 2.8 Eos % (Auto) 0.2 L Baso % (Auto) 0.2 Lymph # (Auto) 1.4 [place] # (Auto) 0.2 Eos # (Auto) 0.0 Baso # (Auto) 0.01 Absolute Neuts (auto) 4.18 pCO2 pO2 HCO3 ABG pH ABG Total CO2 ABG O2 Saturation ABG Base Excess ABG Potassium Glucose Lactate FiO2 Crit Value Called To Crit Value Called By Blood Gas Notified Time Sodium 144 Potassium 3.6 Chloride 105 Carbon Dioxide 28 Anion Gap 15 BUN 5 L Creatinine 0.5 L Est GFR ( Amer) > 60 Est GFR (Non-Af Amer) > 60 Random Glucose 124 H Calcium 9.4 Magnesium 2.0 Total Bilirubin 0.2 AST 39 H D ALT 21 Alkaline Phosphatase 55 Total Creatine Kinase 48 Total Protein 6.9 Albumin 4.1 Globulin 2.8 Albumin/Globulin Ratio 1.4 Arterial Blood Potassium Urine Color Urine Appearance Urine pH Ur Specific Proctor Urine Protein Urine Glucose (UA) Urine Ketones Urine Blood Urine Nitrate Urine Bilirubin Urine Urobilinogen Ur Leukocyte Esterase Salicylates < 1 L Urine Opiates Screen Urine Methadone Screen Acetaminophen < 10.0 L Ur Barbiturates Screen Ur Phencyclidine Scrn Ur Amphetamines Screen U Benzodiazepines Scrn U Oth Cocaine Metabols U Cannabinoids Screen Alcohol, Quantitative 11/18/18 11/18/18 11/18/18 18:50 18:59 19:47 WBC RBC Hgb Hct MCV MCH MCHC RDW Plt Count MPV Neut % (Auto) Lymph % (Auto) [place] % (Auto) Eos % (Auto) Baso % (Auto) Lymph # (Auto) [place] # (Auto) Eos # (Auto) Baso # (Auto) Absolute Neuts (auto) pCO2 44 pO2 62.0 L HCO3 29.2 H ABG pH 7.43 ABG Total CO2 30.6 H ABG O2 Saturation 95.1 ABG Base Excess 4.2 H ABG Potassium 3.2 L Glucose 112 H Lactate 2.4 H FiO2 21.0 Crit Value Called To Dr nickerson Crit Value Called By [facility] Blood Gas Notified Time 1903 Sodium 142.0 Potassium Chloride 109.0 H Carbon Dioxide Anion Gap BUN Creatinine Est GFR ( Amer) Est GFR (Non-Af Amer) Random Glucose Calcium Magnesium Total Bilirubin AST ALT Alkaline Phosphatase Total Creatine Kinase Total Protein Albumin Globulin Albumin/Globulin Ratio Arterial Blood Potassium 3.2 L Urine Color Urine Appearance Urine pH Ur Specific Proctor Urine Protein Urine Glucose (UA) Urine Ketones Urine Blood Urine Nitrate Urine Bilirubin Urine Urobilinogen Ur Leukocyte Esterase Salicylates Urine Opiates Screen Positive H Urine Methadone Screen Negative Acetaminophen Ur Barbiturates Screen Negative Ur Phencyclidine Scrn Negative Ur Amphetamines Screen Negative U Benzodiazepines Scrn Negative U Oth Cocaine Metabols Negative U Cannabinoids Screen Negative Alcohol, Quantitative 236 H 11/18/18 19:47 WBC RBC Hgb Hct MCV MCH MCHC RDW Plt Count MPV Neut % (Auto) Lymph % (Auto) [place] % (Auto) Eos % (Auto) Baso % (Auto) Lymph # (Auto) [place] # (Auto) Eos # (Auto) Baso # (Auto) Absolute Neuts (auto) pCO2 pO2 HCO3 ABG pH ABG Total CO2 ABG O2 Saturation ABG Base Excess ABG Potassium Glucose Lactate FiO2 Crit Value Called To Crit Value Called By Blood Gas Notified Time Sodium Potassium Chloride Carbon Dioxide Anion Gap BUN Creatinine Est GFR ( Amer) Est GFR (Non-Af Amer) Random Glucose Calcium Magnesium Total Bilirubin AST ALT Alkaline Phosphatase Total Creatine Kinase Total Protein Albumin Globulin Albumin/Globulin Ratio Arterial Blood Potassium Urine Color Light yellow Urine Appearance Clear Urine pH 6.5 Ur Specific Proctor <= 1.005 Urine Protein Negative Urine Glucose (UA) Negative Urine Ketones Negative Urine Blood Negative Urine Nitrate Negative Urine Bilirubin Negative Urine Urobilinogen 0.2 Ur Leukocyte Esterase Negative Salicylates Urine Opiates Screen Urine Methadone Screen Acetaminophen Ur Barbiturates Screen Ur Phencyclidine Scrn Ur Amphetamines Screen U Benzodiazepines Scrn U Oth Cocaine Metabols U Cannabinoids Screen Alcohol, Quantitative Assessment & Plan - Assessment and Plan (Free Text) Plan: Substance overdose - no reversing agent indicated as per poison control recs - repeat EKG in 4-6 hours to look for QRS changes - close monitoring for agitation and urinary retention - Head CT and CXR unremarkable - UDS positive for opiates - alcohol level 236 - aspiriation precautions, seizure precautions, neurochecks - folic acid/multivitamin/thiamine - IVF Case reviewed with Dr. Wally Nickerson PGY-1 <Kamille Lo - Last Filed: 11/19/18 01:30> Results - Vital Signs Recent Vital Signs: Last Vital Signs Temp 98.1 F 11/18/18 23:41 Pulse 82 11/19/18 00:46 Resp 20 11/19/18 00:46 BP 111/71 11/18/18 23:41 Pulse Ox 98 11/18/18 23:41 - Labs Result Diagrams: 11/18/18 18:50 11/18/18 18:50 Labs: Laboratory Results - last 24 hr 11/18/18 11/18/18 11/18/18 18:50 18:50 18:50 WBC 5.7 RBC 4.03 Hgb 13.3 Hct 40.1 MCV 99.5 D MCH 33.0 MCHC 33.2 RDW 13.1 Plt Count 317 MPV 9.6 Neut % (Auto) 72.8 H Lymph % (Auto) 24.0 [place] % (Auto) 2.8 Eos % (Auto) 0.2 L Baso % (Auto) 0.2 Lymph # (Auto) 1.4 [place] # (Auto) 0.2 Eos # (Auto) 0.0 Baso # (Auto) 0.01 Absolute Neuts (auto) 4.18 pCO2 pO2 HCO3 ABG pH ABG Total CO2 ABG O2 Saturation ABG Base Excess ABG Potassium Glucose Lactate FiO2 Crit Value Called To Crit Value Called By Blood Gas Notified Time Sodium 144 Potassium 3.6 Chloride 105 Carbon Dioxide 28 Anion Gap 15 BUN 5 L Creatinine 0.5 L Est GFR ( Amer) > 60 Est GFR (Non-Af Amer) > 60 Random Glucose 124 H Calcium 9.4 Magnesium 2.0 Total Bilirubin 0.2 AST 39 H D ALT 21 Alkaline Phosphatase 55 Total Creatine Kinase 48 Total Protein 6.9 Albumin 4.1 Globulin 2.8 Albumin/Globulin Ratio 1.4 Arterial Blood Potassium Urine Color Urine Appearance Urine pH Ur Specific [place] Urine Protein Urine Glucose (UA) Urine Ketones Urine Blood Urine Nitrate Urine Bilirubin Urine Urobilinogen Ur Leukocyte Esterase Salicylates < 1 L Urine Opiates Screen Urine Methadone Screen Acetaminophen < 10.0 L Ur Barbiturates Screen Ur Phencyclidine Scrn Ur Amphetamines Screen U Benzodiazepines Scrn U Oth Cocaine Metabols U Cannabinoids Screen Alcohol, Quantitative 11/18/18 11/18/18 11/18/18 18:50 18:59 19:47 WBC RBC Hgb Hct MCV MCH MCHC RDW Plt Count MPV Neut % (Auto) Lymph % (Auto) [place] % (Auto) Eos % (Auto) Baso % (Auto) Lymph # (Auto) [place] # (Auto) Eos # (Auto) Baso # (Auto) Absolute Neuts (auto) pCO2 44 pO2 62.0 L HCO3 29.2 H ABG pH 7.43 ABG Total CO2 30.6 H ABG O2 Saturation 95.1 ABG Base Excess 4.2 H ABG Potassium 3.2 L Glucose 112 H Lactate 2.4 H FiO2 21.0 Crit Value Called To Dr nickerson Crit Value Called By [facility] Blood Gas Notified Time 1904 Sodium 142.0 Potassium Chloride 109.0 H Carbon Dioxide Anion Gap BUN Creatinine Est GFR ( Amer) Est GFR (Non-Af Amer) Random Glucose Calcium Magnesium Total Bilirubin AST ALT Alkaline Phosphatase Total Creatine Kinase Total Protein Albumin Globulin Albumin/Globulin Ratio Arterial Blood Potassium 3.2 L Urine Color Urine Appearance Urine pH Ur Specific [place]ctor Urine Protein Urine Glucose (UA) Urine Ketones Urine Blood Urine Nitrate Urine Bilirubin Urine Urobilinogen Ur Leukocyte Esterase Salicylates Urine Opiates Screen Positive H Urine Methadone Screen Negative Acetaminophen Ur Barbiturates Screen Negative Ur Phencyclidine Scrn Negative Ur Amphetamines Screen Negative U Benzodiazepines Scrn Negative U Oth Cocaine Metabols Negative U Cannabinoids Screen Negative Alcohol, Quantitative 236 H 11/18/18 19:47 WBC RBC Hgb Hct MCV MCH MCHC RDW Plt Count MPV Neut % (Auto) Lymph % (Auto) [place] % (Auto) Eos % (Auto) Baso % (Auto) Lymph # (Auto) [place] # (Auto) Eos # (Auto) Baso # (Auto) Absolute Neuts (auto) pCO2 pO2 HCO3 ABG pH ABG Total CO2 ABG O2 Saturation ABG Base Excess ABG Potassium Glucose Lactate FiO2 Crit Value Called To Crit Value Called By Blood Gas Notified Time Sodium Potassium Chloride Carbon Dioxide Anion Gap BUN Creatinine Est GFR ( Amer) Est GFR (Non-Af Amer) Random Glucose Calcium Magnesium Total Bilirubin AST ALT Alkaline Phosphatase Total Creatine Kinase Total Protein Albumin Globulin Albumin/Globulin Ratio Arterial Blood Potassium Urine Color Light yellow Urine Appearance Clear Urine pH 6.5 Ur Specific [place] <= 1.005 Urine Protein Negative Urine Glucose (UA) Negative Urine Ketones Negative Urine Blood Negative Urine Nitrate Negative Urine Bilirubin Negative Urine Urobilinogen 0.2 Ur Leukocyte Esterase Negative Salicylates Urine Opiates Screen Urine Methadone Screen Acetaminophen Ur Barbiturates Screen Ur Phencyclidine Scrn Ur Amphetamines Screen U Benzodiazepines Scrn U Oth Cocaine Metabols U Cannabinoids Screen Alcohol, Quantitative Attending/Attestation - Attestation I have personally seen and examined this patient.: Yes I have fully participated in the care of the patient.: Yes I have reviewed all pertinent clinical information: Yes Notes (Text): 11/19/18 01:28 Seen and examined. Discussed with resident. Pt. is intoxicated; therefore history is limited. Concern for suicide attempt with ETOH, thorazine and klonopin. Psych consult, 1:1 sitter and hold sedative meds at this time. watch for ETOH withdrawal or Benzo withdrawal seizures.
[2018-11-19 07:25] LABS: BASO # 0.01 K/mm3 (0.0-2.0); BASO % 0.2 % (0.0-3.0); EOS # 0.1 (0.0-0.7); LYMPH # 1.6 (1.2-3.4); LYMPH % 31.4 % (22.0-35.0); MEAN CELL VOLUME 99.2 fl (80.0-105.0); MEAN CORPUSCULAR HEMOGLOBIN 31.8 pg (25.0-35.0); MEAN CORPUSCULAR HGB CONC 32.1 g/dl (31.0-37.0); MEAN PLATELET VOLUME 9.4 fl (7.0-11.0); MONO # 0.3 (0.1-0.6); MONO % 6.9 % (1.0-6.0); RBC 3.77 10^6/uL (3.5-6.1); WHITE BLOOD COUNT 4.9 10^3/uL (4.5-11.0)
[2018-11-19] MEDS: Multivitamin With Minerals Tab PO SCH (07:44)
[2018-11-19 07:58] LABS: ALB/GLOB RATIO 1.4 (1.1-1.8); ALBUMIN 3.5 g/dL (3.0-4.8); ALT/SGPT 24 U/L (7-56); AST/SGOT 25 U/L (14-36); BLOOD UREA NITROGEN 7 mg/dL (7-21); GFR NON-AFRICAN AMERICAN > 60
--- NOTE | 2018-11-19 08:30 | CT ---
Date of service: 11/18/2018 PROCEDURE: CT HEAD WITHOUT CONTRAST. HISTORY: overdose, confused COMPARISON: None available. TECHNIQUE: Axial computed tomography images were obtained through the head/brain without intravenous contrast. Radiation dose: Total exam DLP = 1599.57 mGy-cm. This CT exam was performed using one or more of the following dose reduction techniques: Automated exposure control, adjustment of the mA and/or kV according to patient size, and/or use of iterative reconstruction technique. FINDINGS: HEMORRHAGE: No intracranial hemorrhage. BRAIN: No mass effect or edema. Mild atrophy VENTRICLES: Unremarkable. No hydrocephalus. CALVARIUM: Unremarkable. PARANASAL SINUSES: Unremarkable as visualized. No significant inflammatory changes. MASTOID AIR CELLS: Unremarkable as visualized. No inflammatory changes. OTHER FINDINGS: The report concurs with the preliminary [facility] report IMPRESSION: No acute intracranial findings
[2018-11-19] MEDS: Folic Acid 1 MG, Thiamine 100 MG, Multivitamin (MVI) 10 ML in Dextrose 5% In Water 1,00... IV SCH ×3 (09:29→20:40)
--- NOTE | 2018-11-19 09:57 | RAD ---
Date of service: 11/18/2018 HISTORY: overdose, COMPARISON: 11/24/2017 TECHNIQUE: 1 view obtained. FINDINGS: LUNGS: No active pulmonary disease. PLEURA: No significant pleural effusion identified, no pneumothorax apparent. CARDIOVASCULAR: No aortic atherosclerotic calcification present. Normal cardiac size. No pulmonary vascular congestion. OSSEOUS STRUCTURES: No significant abnormalities. VISUALIZED UPPER ABDOMEN: Normal. OTHER FINDINGS: None. IMPRESSION: No active disease.
[2018-11-19 12:22] VITALS: RESP 20
--- NOTE | 2018-11-19 13:24 | CARD ---
APPROVED REPORT Date of service: 11/18/2018 EKG Measurement Heart [id number] <Conclusion> Sinus tachycardia Otherwise normal ECG
--- NOTE | 2018-11-19 18:14 | CARD ---
APPROVED REPORT Date of service: 11/19/2018 EKG Measurement Heart [id number] [id number] <Conclusion> Normal sinus rhythm Normal ECG
--- NOTE | 2018-11-19 20:23 | CON ---
DATE: 11/19/2018 HISTORY OF PRESENT ILLNESS: The patient is a 53-year-old, female with psychiatric history of bipolar disorder, panic disorder, borderline personality disorder, numerous psychiatric admissions, most recently hospitalized at [facility] in 11/2017, reportedly more than "200 prior suicide attempts" per the patient, history of ECT in [place], numerous failed medication trials and treatment with Audie at [facility] and reportedly compliant with medications of Klonopin, Thorazine and Lamictal who was admitted to the medical floor after reportedly trying to kill herself with vodka, Thorazine and Klonopin. The patient has been on a one-to-one and she is being medically treated and stabilized. The patient readily admits that she has been depressed, nothing helped her. She has a lifeline history of depression and admits that her overdose was intentional. The patient admits to helplessness, hopelessness, low energy, excessive anxiety, low-frustration tolerance, general unhappiness and moodiness with poor sleep. Presently, the patient appears quite constricted and unhappy and reluctant to participate in the interview in a way that she will require Psychiatry assess the patient when she is medically cleared from the medical floor. She denies having any hallucinations. No delusions were elicited. She does not entirely engage into discussing her current stressors and remains unpredictable. SOCIAL HISTORY: The patient resides by herself. She has two kids, a daughter and a son. She has not worked. She is unemployed. PSYCHIATRIC HISTORY: As per HPI. The patient reports more than 200 suicide attempts including slitting her wrists and overdoses. Labs and vitals were reviewed. RELEVANT PSYCHIATRIC MEDICATIONS: The patient is not on any psychiatric medication on the medical floor. IMPRESSION: Bipolar disorder by history, generalized anxiety disorder, panic disorder, borderline personality disorder and history of substance abuse. RECOMMENDATIONS: At this time, we are going to start Klonopin 0.5 mg every 6 hours to ensure the patient does not go through any benzo withdrawal and will hold on any other medications. The patient appeared sedated during my visit at bedside. Psychiatry will continue to follow up. The patient still requires one-to-one, she is unpredictable and will require psychiatric admission once she is medically cleared. Maykel Ruiz MD [facility] # [id number]
[2018-11-20 06:43] LABS: BASO # 0.01 K/mm3 (0.0-2.0); BASO % 0.2 % (0.0-3.0); EOS # 0.1 (0.0-0.7); EOS % 1.4 % (1.5-5.0); HEMOGLOBIN 13.4 g/dL (12.0-16.0); LYMPH # 1.7 (1.2-3.4); LYMPH % 33.2 % (22.0-35.0); MEAN CELL VOLUME 98.3 fl (80.0-105.0); MEAN CORPUSCULAR HEMOGLOBIN 32.3 pg (25.0-35.0); MEAN CORPUSCULAR HGB CONC 32.8 g/dl (31.0-37.0); MEAN PLATELET VOLUME 9.6 fl (7.0-11.0); MONO # 0.3 (0.1-0.6); MONO % 6.2 % (1.0-6.0); RBC 4.15 10^6/uL (3.5-6.1); RED CELL DISTRIBUTION WIDTH 13.1 % (11.5-14.5)
[2018-11-20 07:06] LABS: ALB/GLOB RATIO 1.5 (1.1-1.8); ALBUMIN 4.1 g/dL (3.0-4.8); ALT/SGPT 23 U/L (7-56); AST/SGOT 36 U/L (14-36); BLOOD UREA NITROGEN 5 mg/dL (7-21); CALCIUM 9.7 mg/dL (8.4-10.5); GFR NON-AFRICAN AMERICAN > 60
[2018-11-20 07:48] VITALS: TEMP 97.8; O2SAT 96
[2018-11-20] MEDS: Multivitamin With Minerals Tab PO SCH (09:47)
[2018-11-20] MEDS: Folic Acid 1 MG, Thiamine 100 MG, Multivitamin (MVI) 10 ML in Dextrose 5% In Water 1,00... IV SCH (10:09)
--- NOTE | 2018-11-20 14:09 | CP.PCM.DIS ---
<Hugo Bob - Last Filed: 11/20/18 15:58> Provider - Provider Date of Admission: 11/19/18 15:39 Attending physician: Kath Worley MD Primary care physician: NO PRIMARY CARE PROVIDER Consults: 11/18/18 22:14 Psychiatry Consult Routine Comment: Consulting Provider: Maykel Ruiz Consulting Physician: Maykel Ruiz Reason for Consult: anxiety, bipolar, depression, substance abuse 11/19/18 01:11 Social Work Referral Routine Comment: Suicidal Physician Instructions: Reason For Exam: Protocol Time Spent in preparation of Discharge (in minutes): 45 Diagnosis - Discharge Diagnosis (1) Alcohol intoxication Status: Resolved (2) Overdose Status: Resolved (3) Depression Status: Chronic (4) Borderline personality disorder Status: Chronic Priority: High Hospital Course - Lab Results Lab Results: Most Recent Lab Values WBC 5.0 10^3/uL (4.5-11.0) 11/20/18 06:30 RBC 4.15 10^6/uL (3.5-6.1) 11/20/18 06:30 Hgb 13.4 g/dL (12.0-16.0) 11/20/18 06:30 Hct 40.8 % (36.0-48.0) 11/20/18 06:30 MCV 98.3 fl (80.0-105.0) 11/20/18 06:30 MCH 32.3 pg (25.0-35.0) 11/20/18 06:30 MCHC 32.8 g/dl (31.0-37.0) 11/20/18 06:30 RDW 13.1 % (11.5-14.5) 11/20/18 06:30 Plt Count 321 10^3/uL (120.0-450.0) 11/20/18 06:30 MPV 9.6 fl (7.0-11.0) 11/20/18 06:30 Neut % (Auto) 59.0 % (50.0-68.0) 11/20/18 06:30 Lymph % (Auto) 33.2 % (22.0-35.0) 11/20/18 06:30 [place] % (Auto) 6.2 % (1.0-6.0) H 11/20/18 06:30 Eos % (Auto) 1.4 % (1.5-5.0) L 11/20/18 06:30 Baso % (Auto) 0.2 % (0.0-3.0) 11/20/18 06:30 Lymph # (Auto) 1.7 (1.2-3.4) 11/20/18 06:30 [place] # (Auto) 0.3 (0.1-0.6) 11/20/18 06:30 Eos # (Auto) 0.1 (0.0-0.7) 11/20/18 06:30 Baso # (Auto) 0.01 K/mm3 (0.0-2.0) 11/20/18 06:30 Absolute Neuts (auto) 2.95 (1.4-6.5) 11/20/18 06:30 pCO2 44 mm/Hg (35-45) 11/18/18 18:59 pO2 62.0 mm/Hg (80-100) L 11/18/18 18:59 HCO3 29.2 mmol/L (21-28) H 11/18/18 18:59 ABG pH 7.43 (7.35-7.45) 11/18/18 18:59 ABG Total CO2 30.6 mmol.L (22-28) H 11/18/18 18:59 ABG O2 Saturation 95.1 % (95-98) 11/18/18 18:59 ABG Base Excess 4.2 mmol/L (-2.0-3.0) H 11/18/18 18:59 ABG Potassium 3.2 mmol/L (3.6-5.2) L 11/18/18 18:59 Sodium 142.0 mmol/L (132-148) 11/18/18 18:59 Chloride 109.0 mmol/L (98-107) H 11/18/18 18:59 Glucose 112 mg/dl (65-105) H 11/18/18 18:59 Lactate 2.4 mmol/L (0.7-2.1) H 11/18/18 18:59 FiO2 21.0 % 11/18/18 18:59 Crit Value Called To Dr polanco 11/18/18 18:59 Crit Value Called By Lisa 11/18/18 18:59 Blood Gas Notified Time 190311/18/18 18:59 Sodium 143 mmol/L (132-148) 11/20/18 06:30 Potassium 3.7 mmol/L (3.6-5.0) 11/20/18 06:30 Chloride 106 mmol/L (98-107) 11/20/18 06:30 Carbon Dioxide 27 mmol/L (21-33) 11/20/18 06:30 Anion Gap 13 (10-20) 11/20/18 06:30 BUN 5 mg/dL (7-21) L 11/20/18 06:30 Creatinine 0.5 mg/dl (0.7-1.2) L 11/20/18 06:30 Est GFR ( Amer) > 60 11/20/18 06:30 Est GFR (Non-Af Amer) > 60 11/20/18 06:30 Random Glucose 113 mg/dL (70-110) H 11/20/18 06:30 Calcium 9.7 mg/dL (8.4-10.5) 11/20/18 06:30 Magnesium 2.0 mg/dL (1.7-2.2) 11/18/18 18:50 Total Bilirubin 0.6 mg/dL (0.2-1.3) 11/20/18 06:30 AST 36 U/L (14-36) D 11/20/18 06:30 ALT 23 U/L (7-56) 11/20/18 06:30 Alkaline Phosphatase 51 U/L (38-126) 11/20/18 06:30 Total Creatine Kinase 48 U/L (35-230) 11/18/18 18:50 Total Protein 7.0 g/dL (5.8-8.3) 11/20/18 06:30 Albumin 4.1 g/dL (3.0-4.8) 11/20/18 06:30 Globulin 2.8 gm/dL 11/20/18 06:30 Albumin/Globulin Ratio 1.5 (1.1-1.8) 11/20/18 06:30 Arterial Blood Potassium 3.2 mmol/L (3.6-5.2) L 11/18/18 18:59 Urine Color Light yellow (YELLOW) 11/18/18 19:47 Urine Appearance Clear (CLEAR) 11/18/18 19:47 Urine pH 6.5 (4.7-8.0) 11/18/18 19:47 Ur Specific [place] <= 1.005 (1.005-1.035) 11/18/18 19:47 Urine Protein Negative mg/dL (<30 mg/dL) 11/18/18 19:47 Urine Glucose (UA) Negative mg/dL (NEGATIVE) 11/18/18 19:47 Urine Ketones Negative mg/dL (NEGATIVE) 11/18/18 19:47 Urine Blood Negative (NEGATIVE) 11/18/18 19:47 Urine Nitrate Negative (NEGATIVE) 11/18/18 19:47 Urine Bilirubin Negative (NEGATIVE) 11/18/18 19:47 Urine Urobilinogen 0.2 E.U./dL (<1 E.U./dL) 11/18/18 19:47 Ur Leukocyte Esterase Negative Mika/uL (NEGATIVE) 11/18/18 19:47 Salicylates < 1 mg/dL (2.0-20.0) L 11/18/18 18:50 Urine Opiates Screen Positive (NEGATIVE) H 11/18/18 19:47 Urine Methadone Screen Negative (NEGATIVE) 11/18/18 19:47 Acetaminophen < 10.0 ug/ml (10.0-20.0) L 11/18/18 18:50 Ur Barbiturates Screen Negative (NEGATIVE) 11/18/18 19:47 Ur Phencyclidine Scrn Negative (NEGATIVE) 11/18/18 19:47 Ur Amphetamines Screen Negative (NEGATIVE) 11/18/18 19:47 U Benzodiazepines Scrn Negative (NEGATIVE) 11/18/18 19:47 U Oth Cocaine Metabols Negative (NEGATIVE) 11/18/18 19:47 U Cannabinoids Screen Negative (NEGATIVE) 11/18/18 19:47 Alcohol, Quantitative 236 mg/dL (0-10) H 11/18/18 18:50 - Hospital Course Hospital Course: 53 year old female with past medical history of hepatitis C, heroin/alcohol/tobacco abuse, mutiple psychiatric admissions presented with altered mental status secondary to possible Klonopin overdose. Patient was found with empty bottle of Vodka and Klonipin. Patient was found to have elevated alcohol level. Patient had multiple CODE OCONNELL's called for agitation. Patient was evaluated by psychiatry who state patient is not able to be safely discharged at this time. Patient was accepted to psychiatric floor on 5B. Discharge Exam - Head Exam Head Exam: ATRAUMATIC, NORMAL INSPECTION, NORMOCEPHALIC - ENT Exam ENT Exam: Mucous Membranes Moist - Respiratory Exam Respiratory Exam: Clear to PA & Lateral, NORMAL BREATHING PATTERN, UNREMARKABLE - Cardiovascular Exam Cardiovascular Exam: RRR, +S1, +S2. absent: Gallop, Rubs, Systolic Murmur - GI/Abdominal Exam GI & Abdominal Exam: Normal Bowel Sounds, Soft, Unremarkable - Neurological Exam Neurological exam: Alert, CN II-XII Intact, Oriented x3 - Psychiatric Exam Psychiatric exam: Normal Affect, Normal Mood - Skin Skin Exam: Intact, Normal Color, Warm Discharge Plan - Follow Up Plan Condition: GUARDED Disposition: DISCHARGE TO PSYCH HOSPITAL Instructions: Depression, Adult (DC), Self-Harm (DC) Additional Instructions: 1. Resume medications as ordered. 2. Refrain from alcohol or substance abuse. 3. If symptoms return or worsen, please report to nearest emergency department or call 911 immediately. Referrals: PCP,VEDA [Primary Care Provider] - Marian Whitaker MD [Staff Provider] - <Kath Worley - Last Filed: 11/20/18 16:26> Provider - Provider Date of Admission: 11/19/18 15:39 Attending physician: Marian Whitaker MD Primary care physician: VEDA PRIMARY CARE PROVIDER Consults: 11/18/18 22:14 Psychiatry Consult Routine Comment: Consulting Provider: Maykel Ruiz Consulting Physician: Maykel Ruiz Reason for Consult: anxiety, bipolar, depression, substance abuse 11/19/18 01:11 Social Work Referral Routine Comment: Suicidal Physician Instructions: Reason For Exam: Protocol Hospital Course - Lab Results Lab Results: Most Recent Lab Values WBC 5.0 10^3/uL (4.5-11.0) 11/20/18 06:30 RBC 4.15 10^6/uL (3.5-6.1) 11/20/18 06:30 Hgb 13.4 g/dL (12.0-16.0) 11/20/18 06:30 Hct 40.8 % (36.0-48.0) 11/20/18 06:30 MCV 98.3 fl (80.0-105.0) 11/20/18 06:30 MCH 32.3 pg (25.0-35.0) 11/20/18 06:30 MCHC 32.8 g/dl (31.0-37.0) 11/20/18 06:30 RDW 13.1 % (11.5-14.5) 11/20/18 06:30 Plt Count 321 10^3/uL (120.0-450.0) 11/20/18 06:30 MPV 9.6 fl (7.0-11.0) 11/20/18 06:30 Neut % (Auto) 59.0 % (50.0-68.0) 11/20/18 06:30 Lymph % (Auto) 33.2 % (22.0-35.0) 11/20/18 06:30 [place] % (Auto) 6.2 % (1.0-6.0) H 11/20/18 06:30 Eos % (Auto) 1.4 % (1.5-5.0) L 11/20/18 06:30 Baso % (Auto) 0.2 % (0.0-3.0) 11/20/18 06:30 Lymph # (Auto) 1.7 (1.2-3.4) 11/20/18 06:30 [place] # (Auto) 0.3 (0.1-0.6) 11/20/18 06:30 Eos # (Auto) 0.1 (0.0-0.7) 11/20/18 06:30 Baso # (Auto) 0.01 K/mm3 (0.0-2.0) 11/20/18 06:30 Absolute Neuts (auto) 2.95 (1.4-6.5) 11/20/18 06:30 pCO2 44 mm/Hg (35-45) 11/18/18 18:59 pO2 62.0 mm/Hg (80-100) L 11/18/18 18:59 HCO3 29.2 mmol/L (21-28) H 11/18/18 18:59 ABG pH 7.43 (7.35-7.45) 11/18/18 18:59 ABG Total CO2 30.6 mmol.L (22-28) H 11/18/18 18:59 ABG O2 Saturation 95.1 % (95-98) 11/18/18 18:59 ABG Base Excess 4.2 mmol/L (-2.0-3.0) H 11/18/18 18:59 ABG Potassium 3.2 mmol/L (3.6-5.2) L 11/18/18 18:59 Sodium 142.0 mmol/L (132-148) 11/18/18 18:59 Chloride 109.0 mmol/L (98-107) H 11/18/18 18:59 Glucose 112 mg/dl (65-105) H 11/18/18 18:59 Lactate 2.4 mmol/L (0.7-2.1) H 11/18/18 18:59 FiO2 21.0 % 11/18/18 18:59 Crit Value Called To Dr polanco 11/18/18 18:59 Crit Value Called By Lisa 11/18/18 18:59 Blood Gas Notified Time 1904 11/18/18 18:59 Sodium 143 mmol/L (132-148) 11/20/18 06:30 Potassium 3.7 mmol/L (3.6-5.0) 11/20/18 06:30 Chloride 106 mmol/L (98-107) 11/20/18 06:30 Carbon Dioxide 27 mmol/L (21-33) 11/20/18 06:30 Anion Gap 13 (10-20) 11/20/18 06:30 BUN 5 mg/dL (7-21) L 11/20/18 06:30 Creatinine 0.5 mg/dl (0.7-1.2) L 11/20/18 06:30 Est GFR ( Amer) > 60 11/20/18 06:30 Est GFR (Non-Af Amer) > 60 11/20/18 06:30 Random Glucose 113 mg/dL (70-110) H 11/20/18 06:30 Calcium 9.7 mg/dL (8.4-10.5) 11/20/18 06:30 Magnesium 2.0 mg/dL (1.7-2.2) 11/18/18 18:50 Total Bilirubin 0.6 mg/dL (0.2-1.3) 11/20/18 06:30 AST 36 U/L (14-36) D 11/20/18 06:30 ALT 23 U/L (7-56) 11/20/18 06:30 Alkaline Phosphatase 51 U/L (38-126) 11/20/18 06:30 Total Creatine Kinase 48 U/L (35-230) 11/18/18 18:50 Total Protein 7.0 g/dL (5.8-8.3) 11/20/18 06:30 Albumin 4.1 g/dL (3.0-4.8) 11/20/18 06:30 Globulin 2.8 gm/dL 11/20/18 06:30 Albumin/Globulin Ratio 1.5 (1.1-1.8) 11/20/18 06:30 Arterial Blood Potassium 3.2 mmol/L (3.6-5.2) L 11/18/18 18:59 Urine Color Light yellow (YELLOW) 11/18/18 19:47 Urine Appearance Clear (CLEAR) 11/18/18 19:47 Urine pH 6.5 (4.7-8.0) 11/18/18 19:47 Ur Specific [place] <= 1.005 (1.005-1.035) 11/18/18 19:47 Urine Protein Negative mg/dL (<30 mg/dL) 11/18/18 19:47 Urine Glucose (UA) Negative mg/dL (NEGATIVE) 11/18/18 19:47 Urine Ketones Negative mg/dL (NEGATIVE) 11/18/18 19:47 Urine Blood Negative (NEGATIVE) 11/18/18 19:47 Urine Nitrate Negative (NEGATIVE) 11/18/18 19:47 Urine Bilirubin Negative (NEGATIVE) 11/18/18 19:47 Urine Urobilinogen 0.2 E.U./dL (<1 E.U./dL) 11/18/18 19:47 Ur Leukocyte Esterase Negative Mika/uL (NEGATIVE) 11/18/18 19:47 Salicylates < 1 mg/dL (2.0-20.0) L 11/18/18 18:50 Urine Opiates Screen Positive (NEGATIVE) H 11/18/18 19:47 Urine Methadone Screen Negative (NEGATIVE) 11/18/18 19:47 Acetaminophen < 10.0 ug/ml (10.0-20.0) L 11/18/18 18:50 Ur Barbiturates Screen Negative (NEGATIVE) 11/18/18 19:47 Ur Phencyclidine Scrn Negative (NEGATIVE) 11/18/18 19:47 Ur Amphetamines Screen Negative (NEGATIVE) 11/18/18 19:47 U Benzodiazepines Scrn Negative (NEGATIVE) 11/18/18 19:47 U Oth Cocaine Metabols Negative (NEGATIVE) 11/18/18 19:47 U Cannabinoids Screen Negative (NEGATIVE) 11/18/18 19:47 Alcohol, Quantitative 236 mg/dL (0-10) H 11/18/18 18:50 Attending/Attestation - Attestation I have personally seen and examined this patient.: Yes I have fully participated in the care of the patient.: Yes I have reviewed all pertinent clinical information, including history, physical exam and plan: Yes Notes (Text): 11/20/18 16:21 53 year old female with past medical history of alcohol and substance abuse who presented with altered mental status from drug overdose. Patient was found with empty bottle of Vodka and Klonopin. Alcohol level was elevated and urine drug screen was positive for opiates. This morning patient was very agitated. She was not forthcoming with events leading into hospitalization and wanted to be discharged home. However after reassessment with the psychiatrist she is agreeable to be admitted to inpatient psychiatric unit. Kath Worley MD Hospitalist.
[2018-11-20 15:58] VITALS: BP 121/82; PULSE 114
--- NOTE | 2018-11-20 21:23 | PN ---
DATE: 11/20/2018 SUBJECTIVE: The patient was seen today for followup. As per report, the patient was admitted on the medical site status post suicidal attempt on Klonopin, Thorazine and Lamictal. Notes reviewed. The patient was seen. The patient presented to be agitated earlier and needed to be medicated with Geodon. During this food writer's assessment, the patient was falling asleep couple of times. The patient also presented to be depressed and tearful. The patient reported that she was feeling hopeless and helpless, depressed and the patient said that she wanted to end it all that is why she overdose on the above-mentioned medications. As per collateral information from the nursing staff, the patient was agitated. The patient wanted to leave against medical advice and needed to be medicated with Geodon. The patient presented relatively calm during this food writer's assessment. The patient reported that she lives alone. The patient is facing eviction from the place where she lives. The patient does not have any support. The patient reported that she was compliant with the medications and followup appointment at [facility], but was feeling depressed lately. This food writer offered admission to the Psychiatric Inpatient Unit and the patient reluctantly agreed. rescue worker duly signed consent for admission to the Psychiatric Inpatient Unit and the patient signed consent for treatment and will be transferred to there. Vital signs reviewed. Temperature 97.8, pulse is 112, blood pressure 114/72, respirations 20 and saturation is 96. MEDICATIONS: Reviewed. The patient is on Klonopin 0.5 mg every 6 hours schedule, folic acid, and Ativan 2 mg IV push. Most recent was 10 o'clock at the morning time. The patient is on multivitamins, Nicoderm, and thiamine. LABORATORY DATA: Labs reviewed. Blood gas reviewed. Chemistry reviewed. Urinalysis reviewed. Toxicology was positive for opioids as well as alcohol level at 236. MENTAL STATUS EXAMINATION: The patient presented to be sleepy, easily arousable. Intermittent eye contact. Poor personal hygiene. The patient appears much older than her chronological age. Seems to loss a lot of weight. This food writer is very familiar with this patient from the previous admissions to the Psychiatric Inpatient Unit. Mood described as depressed and hopeless. Flat affect, tearful affect. Mood congruent. Thought process, coherent and goal-directed. Thought content, the patient denied visual, auditory or tactile hallucinations. Denied paranoid ideation. The patient denied thoughts of harming others, but the patient was admitted status post possible suicidal attempt. The patient overdosed on psychotropic medications as well as on alcohol. Insight and judgment seems to be limited. Impulses are unpredictable. IMPRESSION: As per history, bipolar disorder, history of polysubstance abuse and dependence, and history of borderline personality disorder. PLAN: The patient will be admitted to the Psychiatric Inpatient Unit. Medications will be confirmed. The patient filled medications at . Medical team will follow up on this patient. Should you have any questions, give me a call back. Thank you very much for letting me participate in care of your patient. Marian Whitaker MD
== END 2018-11-20 15:37 | DRG 449 ==
LOC: ED 18:12 → ERH 20:50 → 2RSO 23:45 → OBSVTOIN 11-19 15:39 → PSYC 11-20 15:36 → 2RSO 11-20 15:36
PROVIDERS: ADMIT Internal Medicine; ATTEND Internal Medicine
DX: T43.3X2A Poisoning by phenothiazine antipsychotics and neuroleptics, intentional self-harm, initial encounter (principal); J43.9 Emphysema, unspecified; T51.0X2A Toxic effect of ethanol, intentional self-harm, initial encounter; F10.129 Alcohol abuse with intoxication, unspecified; F31.9 Bipolar disorder, unspecified; F41.0 Panic disorder [episodic paroxysmal anxiety]; F41.1 Generalized anxiety disorder; F60.3 Borderline personality disorder; E78.5 Hyperlipidemia, unspecified; K21.9 Gastro-esophageal reflux disease without esophagitis; Z87.891 Personal history of nicotine dependence; Z88.6 Allergy status to analgesic agent; Z88.0 Allergy status to penicillin; Z90.49 Acquired absence of other specified parts of digestive tract; Z91.5 Personal history of self-harm

== ENCOUNTER 2018-11-20 15:37 | Inpatient (IN) | payer MEDICAID ==
[2018-11-20 16:26] VITALS: BMI 21.7
[2018-11-20] MEDS ORDERED: Alum-Mag Hydrox-Simethicone Susp (30 mL) PO PRN (16:36)
[2018-11-20] MEDS ORDERED: Magnesium Hydroxide Susp 30 ml UD PO PRN (16:36)
--- NOTE | 2018-11-20 19:11 | PCM.BM ---
<Rachel Han - Last Filed: 11/20/18 19:08> Treatment Plan Problems - Problems identified on initial assessmt DEPRESSION Date Initiated: 11/20/18 Time Initiated: 19:00 Assessment reference: NA Status: Active Priority: 1 AGITATED/AGGRESSIVE BEHAVIOR Date Initiated: 11/20/18 Time Initiated: 19:00 Assessment reference: NA Status: Active Priority: 2 ANXIETY Date Initiated: 11/20/18 Time Initiated: 19:00 Assessment reference: NA Status: Active Priority: 3 INEFFECTIVE INDV COPING Date Initiated: 11/20/18 Time Initiated: 19:00 Assessment reference: NA Status: Active Priority: 4 KNOWLEDGE DEFICIT /ALCOHOL USE Date Initiated: 11/20/18 Time Initiated: 19:00 Assessment reference: NA Status: Active Priority: 5 Treatment assets and liabiliti Patient Assests: cooperative, educated, self-reliant, negotiates basic needs, good past tx response, cognitively intact, other Patient Liabilities: live alone, physical pain, financial problems, poor support system - Milieu Protocol Maintain good personal hygiene: every shift Encourage regular showers, every shift Remind patient to perform daily oral care, every shift Assist patient to perform ADL's Maintain personal safety: daily Educate patient to report safety concerns to staff, daily Monitor environment for contraband/sharps Medication safety: Monitor for expected outcome, potential side effects: daily, Assess barriers to learning: daily, Assess readiness for medication education: daily Discharge/Continuing Care - Education Needs Education Needs: Patient Medication, Patient Diagnosis/Disease Process, Patient Coping Skills, Patient Anger Management skills, Patient Community resources, Patient Activities of Daily Living, Patient Pain, Patient Nutrition, Patient Health Practices/Safety, Patient Personal Hygiene/Grooming, Patient Aftercare Safety Plan - Discharge Discharge Criteria: Tolerates medication w/o severe side effects, Free of Suicidal thoughts, Free of paranoid thoughts, Free of agitation, Normal sleep pattern, Ability to care for self, No longer exhibiting s/s of withdrawal, Reduction of target symptoms Discharge to:: Home <Marian Whitaker - Last Filed: 11/21/18 11:32> - Diagnosis (1) Bipolar disorder Status: Acute Interventions: 11/21/18 11:33 Psychoeducation Psychopharmacology/adjustment of medications as needed/ monitoring possible side effects Monitor blood level of mood stabilizers Evaluate pt on daily basis Compliance with medications and follow up appointments Suicide and homicide risk assessment and prevention, coping strategies, safety plan Relapse prevention Reduction of symptoms Improve functional status Family involvement As outpatient: cognitive behavioral therapy (2) Borderline personality disorder Status: Chronic Interventions: 11/21/18 11:33 Psychoeducation Psychopharmacology/adjustment of medications as needed/ monitoring possible side effects Evaluate pt on daily basis Compliance with medications and follow up appointments Suicide and homicide risk assessment and prevention, coping strategies, safety plan Relapse prevention Family involvement As outpatient: Transference-focused psychotherapy/dialectical behavioral therapy/schema therapy Mindfulness skills <Maylin Kim Y - Last Filed: 11/24/18 08:33> Family Contact Family involvement: Famliy/SO not involved
[2018-11-21] MEDS: Multivitamin Therapeutic Tab PO SCH (09:10)
--- NOTE | 2018-11-21 11:57 | PCM.PSYCH ---
Initial Psychiatric Evaluation - Initial Psychiatric Evaluation Type of Admission: Voluntary Legal Status: Capacity Chief Complaint (in patient's own words): "I do not know how to cope.." Patient's Reaction to Hospitalization: Patient was transferred from the medical side where she was admitted status post overdose on alcohol, Thorazine, Klonopin. History of Present Illness and Precipitating Events: Patient is a 53-year-old white female with a psychiatric history of bipolar disorder, panic disorder disorder and borderline personality disorder, numerous psychiatric admissions, more than 200 prior suicide attempts [per patient], history of ECT in [place], numerous failed medication trials, currently under care of [facility] at [facility], reportedly compliant with her meds, was admitted to the medical floor s/p overdose on Lamictal, thorazine, alcohol, was medically stable, was transferred for further evaluation stabilization and medication adjustment. Please see consultation not es for more detailed information. Patient was seen and examined today at the TV area, poor personal hygiene, patient is very thin, lost a lot of weight, patient appears much older than her chronological age, acceptable ADLs. Nursing report, patient is irritable, angry, has tendency above cursing at other people, very hard to deal with if her moods are not addressed immediately. Patient preferred not to talk about her suicidal attempt, patient reported "I just do not know how to cope with the stress", patient mentioned that she is stressed out about the fact that her son does not talk to her anymore, patient's daughter is not involved into her life anymore, patient is facing eviction from her housing as she is afraid that she will become homeless. Based on 's report patient admitted that she wanted to kill herself by overdosing on Klonopin/Thorazine/Lamictal. Patient reported to that she was feeling depressed, hopeless, helplessness, low energy, excessive anxiety, low frustration tolerance, unhappiness, moodiness with poor sleep. Patient was reluctant to tell this leader writer how she really feels because her plan is "to be discharged from the hospital by night" Patient denied hearing voices denied seeing things, denied paranoid ideations patient does not present to be psychotic. As per previous history patient has generalized anxiety disorder panic disorder and borderline personality disorder, history of polysubstance abuse and dependence. Past psychiatric history: Numerous admissions to the psychiatric inpatient unit, more than 200 suicidal, multiple medication trials, patient reported on serotonin reuptake inhibitors she becomes "suicidal", see above. Patient reports a history of numerous admissions including [place], [facility], [facility], [facility] as well as [place] for ECT. She denies history of involuntary commitment. Family history: Patient's son is suffering from borderline personality disorder which is severe as well as bipolar disorder as well as polysubstance abuse and dependence, patient son had multiple suicidal attempts in the past. Medical history: Hepatitis C. SOCIAL HISTORY Patient was born and raised in [place]. Patient is on disability and does not work. Patient denies history of drug or alcohol issues though she admits to recreational heroin use a few years ago for a period of approximately a year. Patient denies any history of detoxes or rehabs. He smokes about 1 pack a day. Patient's pharmacy was contacted, pharmacy [phone] patient filled all medication on November, by RACHAEL Forde Klonopin 1 mg 3 times a day, 1 refill left Cogentin 0.5 mg daily, 1 refill left Trazodone 50 mg at the nighttime 1 refill left Venlafaxine extended release 75 mg daily no refills left Thorazine 100 mg at the nighttime 1 refill left Lamictal 200 mg twice a day, 1 refill left Patient denied history of being abused., Patient denied using alcohol on a daily basis, smokes about pack a day, counseling provided, nicotine patch offered. Urine drug screen was positive for opioids on the medical side Vital Signs Temp Pulse Resp BP 11/21/18 07:00 98.9 F 85 17 97/60 L The patient failed the outpatient lower level of care: Yes Current Medications: Active Medications Generic Name Dose Route Start Last Admin Trade Name Freq PRN Reason Stop Dose Admin Acetaminophen 650 mg 11/20/18 16:36 Tylenol 325mg Tab PO Q4 PRN Pain, moderate (4-7) Al Hydrox/Mg Hydrox/Simethicone 30 ml 11/20/18 16:36 Maalox Plus 30 Ml PO DAILY PRN Upset Stomach Benztropine Mesylate 0.5 mg 11/21/18 10:00 Cogentin PO DAILY LONNIE Chlorpromazine 100 mg 11/21/18 22:00 Thorazine PO HS [facility] Protocol Clonazepam 1 mg 11/21/18 13:00 Klonopin PO TID LONNIE Protocol Folic Acid 1 mg 11/21/18 08:00 11/21/18 09:10 Folic Acid PO 1 mg DAILY LONNIE Administration Lamotrigine 200 mg 11/21/18 16:00 Lamictal PO BID LONNIE Protocol Lorazepam 2 mg 11/20/18 16:34 Ativan PO Q6H PRN Anxiety Protocol Lorazepam 2 mg 11/20/18 16:35 Ativan IM Q6H PRN Anxiety Protocol Magnesium Hydroxide 30 ml 11/20/18 16:36 Milk Of Magnesia PO DAILY PRN Constipation Mirtazapine 15 mg 11/21/18 22:00 Remeron PO HS [facility] Multivitamins 1 tab 11/21/18 08:00 11/21/18 09:10 Thera Tab PO 1 tab 0800 [facility] Administration Nicotine 1 patch 11/21/18 08:00 11/21/18 09:11 Nicoderm Cq TD 1 patch DAILY LONNIE Administration Thiamine HCl 50 mg 11/21/18 08:00 11/21/18 09:46 Vitamin B1 Tab PO 50 mg DAILY LONNIE Administration Ziprasidone 20 mg 11/20/18 16:32 Geodon Cap PO Q6H PRN Agitation Protocol Ziprasidone 20 mg 11/20/18 16:34 Geodon Inj IM Q6H PRN Agitation Protocol Present on Admission - Present on Admission Any Indicators Present on Admission: No History of DVT/PE: No History of Uncontrolled Diabetes: No Urinary Catheter: No Decubitus Ulcer Present: No Review of Systems - Review of Systems Systems not reviewed;Unavailable: Acuity of Condition - Constitutional Constitutional: As Per HPI - EENT Eyes: As Per HPI Ears: As Per HPI Nose/Mouth/Throat: As Per HPI - Breasts Breasts: As Per HPI - Cardiovascular Cardiovascular: As Per HPI - Respiratory Respiratory: As Per HPI - Gastrointestinal Gastrointestinal: As Per HPI - Genitourinary Genitourinary: As Per HPI - Reproductive: Female Reproductive:Female: As Per HPI - Menstruation Menstruation: As Per HPI - Musculoskeletal Musculoskeletal: As Per HPI - Integumentary Integumentary: As Per HPI - Neurological Neurological: As Per HPI - Psychiatric Psychiatric: As Per HPI - Endocrine Endocrine: As Per HPI - Hematologic/Lymphatic Hematologic: As Per HPI Past Patient History - Past Psychiatric History Previous Treatment History: Inpatient Prior Professional Help: See HPI Prior Psychiatric Treatment: See HPI At what hospital: See HPI Duration: See HPI Nature of Treatment: See HPI Explanation of prior treatment: See HPI - PSYCHIATRIC Hx Psychophysiologic Disorder: Yes Hx Anxiety: Yes Hx Bipolar Disorder: Yes Hx Substance Use: Yes - Infectious Disease Hx of Infectious Diseases: None - Tetanus Immunizations Tetanus Immunization: Unknown - Past Social History Drugs: Inhalants - CARDIAC Hx Cardiac Disorders: No - PULMONARY Hx Bronchitis: Yes Hx Chronic Obstructive Pulmonary Disease (COPD): Yes Hx Emphysema: Yes - NEUROLOGICAL Hx Neurological Disorder: No - HEENT Hx HEENT Problems: No - RENAL Hx Chronic Kidney Disease: No - ENDOCRINE/METABOLIC Hx Endocrine Disorders: No - HEMATOLOGICAL/ONCOLOGICAL Hx Hepatitis C: Yes - INTEGUMENTARY Hx Dermatological Problems: No - MUSCULOSKELETAL/RHEUMATOLOGICAL Hx Arthritis: Yes Hx Falls: No Hx Osteoarthritis: Yes - GASTROINTESTINAL Hx Gastroesophageal Reflux: Yes - GENITOURINARY/GYNECOLOGICAL Hx Genitourinary Disorders: No - SURGICAL HISTORY Hx Cholecystectomy: Yes - ANESTHESIA Hx Anesthesia: Yes Hx Anesthesia Reactions: Yes Hx Malignant Hyperthermia: No - Medical/Surgical History Reviewed & confirmed: by dc Meds Allergies/Adverse Reactions: Allergies Allergy/AdvReac Type Severity Reaction Status Date / Time aspirin Allergy Mild RASH Verified 11/26/17 18:38 Penicillins Allergy RASH Verified 11/26/17 18:38 ibuprofen [From Motrin] AdvReac ANAPHYLAXIS Verified 11/26/17 18:38 NSAIDS (Non-Steroidal AdvReac ANAPHYLAXIS Verified 11/26/17 18:38 Anti-Inflamma quetiapine fumarate AdvReac SHORTNESS Verified 11/26/17 18:38 [From Seroquel] OF BREATH Mental Status Examination - Personal Presentation Personal Presentation: Looks older than stated age - Affect Affect: Flat - Motor Activity Motor Activity: Calm - Reliability in Providing Information Reliability in Providing Information: Other (pt is secretive, withholding info) - Speech Speech: Organized - Mood Mood: Depressed, Anxious - Formal Thought Process Formal Thought Process: No Impairment - Obsessions/Compulsions Obsessions: None Compulsions: None - Cognitive Functions Orientation: Person, Place, Situation, Time Sensorium: Alert Attention/Concentration: Easily distracted Abstract Thinking: [place] Estimate of Intelligence: Average Judgement: Intact, as evidence by: Insight regarding need for hospitalization - Risk Risk: Suicidal, Self-mutilation, Diminished functioning - Strength & Assets Inventory Strength & Assets Inventory: Cooperative, Other (good physical health) - Limitations Limitations: Other (pt is impulsive, poor support) Psychiatric Physical Exam - Physical Exam Reviewed and confirmed: Emergency Department Physical Exam Results - Vital Signs Recent Vital Signs: Last Vital Signs Temp 98.9 F 11/21/18 07:00 Pulse 85 11/21/18 07:00 Resp 17 11/21/18 07:00 BP 97/60 L 11/21/18 07:00 Pulse Ox - EKG Data EKG Interpreted by: ER Physician DSM Plan - DSM 5 DSM 5 Diagnosis: Bipolar disorder Severe borderline personality History of polysubstance abuse and dependence Opioid was positive from urine but patient denies using any substances - Recommended/Plan of Treatment Treatment Recommendations and Plan of Treatment: Milieu/structure/supportive therapy SW consultation for discharge plan and social issues Med management meds confirmed, resumed remeron 15mg po hs for depression will d/c trazodone Family involvement Follow up on labs Will monitor closely Pt was educated about risk/benefits and alternatives of medications, coping strategies (safety plan, suicide prevention), relapse prevention, importance of follow up with psychiatrist and therapist, stay away from drugs/alcohol/smoking Projected ELOS: 7 days Prognosis: guarded Discharge Plan and Discharge Criteria: Patient will pose no imminent danger to self or others - Tobacco Cessation Tobacco Use Status for the last 30 days: Heavy User(>=5 cigs &/or cigars/pipes daily) Tobacco Use Treatment Practical Counseling Provided: Yes Tobacco Use Treatment FDA-Approved Cessation Medication Provided: Yes Type of Medication Provided: Nicoderm CQ - Alcohol or Substance Abuse Does the patient have an Alcohol or Substance Abuse Disorder: Yes Initial Psych Certification - Initial Certification I certify that the inpatient psychiatric facility admission was medically necessary for either: Treatment which could reasonbly be expected to improve pt's condition I estimate of hospitalization is necessary for proper treatment of the patient: 7 Unit of Time: Days My plans for post-hospital care for this patient are: Day treatment program versus intensive outpatient program
--- NOTE | 2018-11-21 14:03 | CP.PCM.CON ---
<BuffycristinaDominick goss - Last Filed: 11/21/18 13:43> History of Present Illness - History of Present Illness History of Present Illness: Consult Note for Hospitalist Service - [place] PGY2 IM Resident Consult Reason: Medical evaluation HPI: Patient is a 53 year old female with past medical history of Depression, Bipolar disorder, Anxiety Heroin abuse, ETOH abuse, Tobacco abuse who was admitted to 11/19/2018 for AMS secondary to polysubstance in the setting of medication overdose. Patient was medically managed for respiratory depression, withdrawal and agitation. Patient mentation improved and after discussion with psychiatry team signed herself in to voluntary psych unit for evaulation stabilization and medication adjustment. At time of interview patient is without complaints. Denies chest pain, shortness of breath, abdominal pain, nausea, vomiting, fever, chills, urinary complaints, cough, weakness, focal deficits. PMH: Depression, Bipolar disorder, Anxiety Heroin abuse, ETOH abuse, Tobacco abuse PSH: Denies SocHX: Tobacco: 40 Pack year history, ETOH: social with occasional binge drinking episodes, ID: Heroin abuse - Lives in [place] alone ALL: ASA, PCN, Ibuprofen MEDS: As per [facility] Home meds: Klonopin 1 mg 3 times a day, 1 refill left Cogentin 0.5 mg daily, 1 refill left Trazodone 50 mg at the nighttime 1 refill left Venlafaxine extended release 75 mg daily no refills left Thorazine 100 mg at the nighttime 1 refill left Lamictal 200 mg twice a day, 1 refill left Review of Systems - Review of Systems All systems: reviewed and no additional remarkable complaints except (as mentioned in HPI) Past Patient History - Infectious Disease Hx of Infectious Diseases: None - Tetanus Immunizations Tetanus Immunization: Unknown - Past Social History Drugs: Inhalants - CARDIAC Hx Cardiac Disorders: No - PULMONARY Hx Bronchitis: Yes Hx Chronic Obstructive Pulmonary Disease (COPD): Yes Hx Emphysema: Yes - NEUROLOGICAL Hx Neurological Disorder: No - HEENT Hx HEENT Problems: No - RENAL Hx Chronic Kidney Disease: No - ENDOCRINE/METABOLIC Hx Endocrine Disorders: No - HEMATOLOGICAL/ONCOLOGICAL Hx Hepatitis C: Yes - INTEGUMENTARY Hx Dermatological Problems: No - MUSCULOSKELETAL/RHEUMATOLOGICAL Hx Arthritis: Yes Hx Falls: No Hx Osteoarthritis: Yes - GASTROINTESTINAL Hx Gastroesophageal Reflux: Yes - GENITOURINARY/GYNECOLOGICAL Hx Genitourinary Disorders: No - PSYCHIATRIC Hx Psychophysiologic Disorder: Yes Hx Anxiety: Yes Hx Bipolar Disorder: Yes Hx Substance Use: Yes - SURGICAL HISTORY Hx Cholecystectomy: Yes - ANESTHESIA Hx Anesthesia: Yes Hx Anesthesia Reactions: Yes Hx Malignant Hyperthermia: No Meds Allergies/Adverse Reactions: Allergies Allergy/AdvReac Type Severity Reaction Status Date / Time aspirin Allergy Mild RASH Verified 11/26/17 18:38 Penicillins Allergy RASH Verified 11/26/17 18:38 ibuprofen [From Motrin] AdvReac ANAPHYLAXIS Verified 11/26/17 18:38 NSAIDS (Non-Steroidal AdvReac ANAPHYLAXIS Verified 11/26/17 18:38 Anti-Inflamma quetiapine fumarate AdvReac SHORTNESS Verified 11/26/17 18:38 [From Seroquel] OF BREATH - Medications Medications: Current Medications Acetaminophen (Tylenol 325mg Tab) 650 mg PO Q4 PRN PRN Reason: Pain, moderate (4-7) Al Hydrox/Mg Hydrox/Simethicone (Maalox Plus 30 Ml) 30 ml PO DAILY PRN PRN Reason: Upset Stomach Benztropine Mesylate (Cogentin) 0.5 mg PO DAILY [facility] Last Admin: 11/21/18 11:08 Dose: 0.5 mg Chlorpromazine (Thorazine) 100 mg PO HS [facility]; Protocol Clonazepam (Klonopin) 1 mg PO TID [facility]; Protocol Last Admin: 11/21/18 13:19 Dose: 1 mg Folic Acid (Folic Acid) 1 mg PO DAILY [facility] Last Admin: 11/21/18 09:10 Dose: 1 mg Lamotrigine (Lamictal) 200 mg PO BID [facility]; Protocol Lorazepam (Ativan) 2 mg PO Q6H PRN; Protocol PRN Reason: Anxiety Lorazepam (Ativan) 2 mg IM Q6H PRN; Protocol PRN Reason: Anxiety Magnesium Hydroxide (Milk Of Magnesia) 30 ml PO DAILY PRN PRN Reason: Constipation Mirtazapine (Remeron) 15 mg PO HS [facility] Multivitamins (Thera Tab) 1 tab PO 0800 [facility] Last Admin: 11/21/18 09:10 Dose: 1 tab Nicotine (Nicoderm Cq) 1 patch TD DAILY [facility] Last Admin: 11/21/18 09:11 Dose: 1 patch Thiamine HCl (Vitamin B1 Tab) 50 mg PO DAILY [facility] Last Admin: 11/21/18 09:46 Dose: 50 mg Ziprasidone (Geodon Cap) 20 mg PO Q6H PRN; Protocol PRN Reason: Agitation Ziprasidone (Geodon Inj) 20 mg IM Q6H PRN; Protocol PRN Reason: Agitation Physical Exam - Constitutional Appears: No Acute Distress, Older Than Stated Age - Head Exam Head Exam: ATRAUMATIC, NORMAL INSPECTION, NORMOCEPHALIC - Eye Exam Eye Exam: EOMI, PERRL. absent: Nystagmus - ENT Exam ENT Exam: Mucous Membranes Moist - Neck Exam Neck exam: Positive for: Full Rom - Respiratory Exam Respiratory Exam: Clear to Auscultation Bilateral, NORMAL BREATHING PATTERN. absent: Rales, Rhonchi, Wheezes - Cardiovascular Exam Cardiovascular Exam: REGULAR RHYTHM, +S1, +S2 - GI/Abdominal Exam GI & Abdominal Exam: Normal Bowel Sounds, Soft. absent: Distended, Guarding, Rigid - Extremities Exam Extremities exam: Positive for: full ROM, normal inspection. Negative for: pedal edema - Neurological Exam Neurological exam: Alert, CN II-XII Intact, Normal Gait, Oriented x3, Reflexes Normal Additional comments: motor and sensory grossly intact - Psychiatric Exam Psychiatric exam: Normal Affect, Normal Mood Additional comments: denies suicidal ideation - Skin Skin Exam: Dry, Intact Results - Vital Signs Recent Vital Signs: Last Vital Signs Temp 98.9 F 11/21/18 07:00 Pulse 85 11/21/18 07:00 Resp 17 11/21/18 07:00 BP 97/60 L 11/21/18 07:00 Pulse Ox Assessment & Plan - Assessment and Plan (Free Text) Assessment: A: 53 year old female with past medical history of Depression, Bipolar disorder, Anxiety Heroin abuse, ETOH abuse, Tobacco abuse who was admitted to [facility] for AMS secondary to over medication with thorazine and klonipin as well as etoh intoxication. Patient treated and medically stabilized for discharge to inpatient psychiatry for further management of psychiatric disorders. P: Patient with no active medical issues at this time. Patient educated on cessation for tobacco, etoh and substance abuse. Patient noted to be hemodynamically stable and per chart review of previous lab results patient stable. Recommend continuation of MV, Folic acid, THiamine for chronic etoh abuse. Patient medically stable at this time and will sign off at this time. Please re-consult as needed. <Kath Worley A - Last Filed: 11/21/18 15:19> Meds - Medications Medications: Current Medications Acetaminophen (Tylenol 325mg Tab) 650 mg PO Q4 PRN PRN Reason: Pain, moderate (4-7) Al Hydrox/Mg Hydrox/Simethicone (Maalox Plus 30 Ml) 30 ml PO DAILY PRN PRN Reason: Upset Stomach Benztropine Mesylate (Cogentin) 0.5 mg PO DAILY [facility] Last Admin: 11/21/18 11:08 Dose: 0.5 mg Chlorpromazine (Thorazine) 100 mg PO HS [facility]; Protocol Clonazepam (Klonopin) 1 mg PO TID [facility]; Protocol Last Admin: 11/21/18 13:19 Dose: 1 mg Folic Acid (Folic Acid) 1 mg PO DAILY [facility] Last Admin: 11/21/18 09:10 Dose: 1 mg Lamotrigine (Lamictal) 200 mg PO BID [facility]; Protocol Lorazepam (Ativan) 2 mg PO Q6H PRN; Protocol PRN Reason: Anxiety Lorazepam (Ativan) 2 mg IM Q6H PRN; Protocol PRN Reason: Anxiety Magnesium Hydroxide (Milk Of Magnesia) 30 ml PO DAILY PRN PRN Reason: Constipation Mirtazapine (Remeron) 15 mg PO HS [facility] Multivitamins (Thera Tab) 1 tab PO 0800 [facility] Last Admin: 11/21/18 09:10 Dose: 1 tab Nicotine (Nicoderm Cq) 1 patch TD DAILY [facility] Last Admin: 11/21/18 09:11 Dose: 1 patch Thiamine HCl (Vitamin B1 Tab) 50 mg PO DAILY [facility] Last Admin: 11/21/18 09:46 Dose: 50 mg Ziprasidone (Geodon Cap) 20 mg PO Q6H PRN; Protocol PRN Reason: Agitation Ziprasidone (Geodon Inj) 20 mg IM Q6H PRN; Protocol PRN Reason: Agitation Results - Vital Signs Recent Vital Signs: Last Vital Signs Temp 98.9 F 11/21/18 07:00 Pulse 85 11/21/18 07:00 Resp 17 11/21/18 07:00 BP 97/60 L 11/21/18 07:00 Pulse Ox Attending/Attestation - Attestation I have personally seen and examined this patient.: Yes I have fully participated in the care of the patient.: Yes I have reviewed all pertinent clinical information: Yes Notes (Text): 11/21/18 15:16 53 year old female with past medical history of alcohol abuse, substance abuse, depression and bipolar who presented after medication overdose (thorazine and klonopin) in addition to alcohol intoxication. She was observed on telemetry unit and transferred to inpatient psychiatric unit. Medical consultation was requested for follow up. Patient was counselled on risks of continued substance and alcohol abuse. Continue with multivitamin, folic acid and thiamine. Further management as per psychiatrist. Thank you Dr. Whitaker for allowing us to participate in the care of this patient. Please re-consult as needed. Kath Worley MD Hospitalist.
[2018-11-22 07:05] VITALS: RESP 20
[2018-11-22] MEDS: Multivitamin Therapeutic Tab PO SCH (08:42)
--- NOTE | 2018-11-22 15:28 | PCM.PYCHPN ---
Psychiatric Progress Note - Psychiatric Progress Note Patient seen today, length of contact: 30 minutes Patient Chief Complaint: "I slept well, thank you" Problems Identified/Issues Discussed: Safety plan, coping strategies, treatment plan, discharge plan, risk/benefi ts/alternatives of the medications. Medical Problems: See HPI. Diagnostic Results: Vital Signs Temp Pulse Resp BP 11/22/18 07:04 98.5 F 56 L 20 103/68 11/21/18 15:00 94 H 17 119/84 11/21/18 07:00 98.9 F 85 17 97/60 L Urine drug screen was positive for opioids, patient reported that she took 1 dose of Percocet, patient was not prescribed Percocet, most likely abusing it. DSM 5 Symptoms Update: Patient is a 53-year-old white female with a psychiatric history of bipolar disorder, panic disorder disorder and borderline personality disorder, numerous psychiatric admissions, more than 200 prior suicide attempts [per patient], history of ECT in [place], numerous failed medication trials, currently under care of [facility] at [facility], reportedly compliant with her meds, was admitted to the medical floor s/p overdose on Lamictal, thorazine, alcohol, was medically stable, was transferred for further evaluation stabilization and medication adjustment. Please see consultation notes for more detailed information. Patient was seen and examined today at the treatment team meeting, patient presented with acceptable personal hygiene, good ADLs. Patient reported that she slept well, patient affect was more reactive, patient reported that she feels less depressed, patient reported that she has future oriented plans, patient needs to have dental appointment, patient also reported in order not to be evicted from her house she needs to go to housing in order to submit paperwork they requested. As per nursing report, patient is more pleasant, no agitation, no aggression. Patient reported that she likes Remeron which was prescribed to her yesterday, patient was to continue on this medication, patient denied any side effects. Patient requested Cogentin to be discontinued because patient is not on any antipsychotic medications, Effexor was discontinued, meanwhile patient has 1 refill for her medications. Patient requested to be discharged, contracted for safety, possible discharge tomorrow. So far patient tolerates medications well, no side effects observed or reported, aims 0, no EPS. Impression: DSM 5 Diagnosis: Bipolar disorder Severe borderline personality History of polysubstance abuse and dependence Opioid was positive from urine but patient denies using any substances Medication Change: Yes (Effexor discontinued, Cogentin discontinued) Medical Record Reviewed: Yes Consults ordered or reviewed: Medical consult appreciated Mental Status Examination - Cognitive Function Orientation: Person, Place, Situation, Time Memory: Intact Attention: Poor (Some improvement) Concentration: Poor (Some improvement) Association: WNL Fund of Knowledge: WNL - Mood Mood: Depressed ("I feel better"), Anxious - Affect Affect: Flat - Formal Thought Process Formal Thought Process: No Impairment - Suicidal Ideation Suicidal Ideation: No Plan: Patient contracted for safety, home safety plan was discussed with the patient, patient reported in the future in case or active suicidal thoughts she would call her daughter, or charge, 911, or suicide hotline. - Homicidal Ideation Homicidal Ideation: No Goal/Treatment Plan - Goal/Treatment Plan Need for Continued Stay: Remain at risks for inpatient hospitalization, Severe depression anxiety, Discharge may exacerbated symptoms, Severe functional impairment Progress Toward Problem(s) and Goals/Treatment Plan: Milieu/structure/supportive therapy SW consultation for discharge plan and social issues Med management meds confirmed, resumed remeron 15mg po hs for depression will d/c trazodone Family involvement Follow up on labs Will monitor closely Pt was educated about risk/benefits and alternatives of medications, coping strategies (safety plan, suicide prevention), relapse prevention, importance of follow up with psychiatrist and therapist, stay away from drugs/alcohol/smoking Estimated Date of D/C: 11/23/18
[2018-11-23 07:10] VITALS: BP 114/82; PULSE 101; TEMP 98.1
[2018-11-23] MEDS: Multivitamin Therapeutic Tab PO SCH (07:30)
--- NOTE | 2018-11-23 13:39 | PCM.PYCHDC ---
Mental Status Examination - Mental Status Examination Orientation: Person, Place, Situation, Time Memory: Intact Mood: Neutral Affect: Constricted (But reactive and mood congruent) Speech: Appropriate Attention: WNL Concentration: WNL Association: WNL Fund of Knowledge: WNL Formal Thought Process: No Impairment Description of patient's judgement and insight: Pt has improved insight into mental and medical illness, pt was compliant with medications and unit rules and regulations, pt was attending group therapy sessions, was calm, cooperative, socially appropriate, no behavioral incidents, no agitation, no aggression. Psychotic Thoughts and Behaviors: Pt denied v/a/t hallucinations, denied paranoid ideations, pt does not appear to be psychotic, and thought process is goal directed. Suicidal Ideation: No Current Homicidal Ideation?: No Plan: pt adamantly denied thoughts of harming self or others denied intent or plan. Discharge Plan - Discharge Note Reason for Hospitalization: Patient was transferred from the medical side where she was admitted status post overdose on alcohol, Thorazine, Klonopin. Psychiatric History (includes Medical, Family, Personal Hx): See HPI Laboratory Data: Vital Signs Temp Pulse Resp BP 11/23/18 07:09 98.1 F 101 H 20 114/82 11/22/18 16:29 108 H 105/73 11/22/18 07:04 98.5 F 56 L 20 103/68 11/21/18 15:00 94 H 17 119/84 11/21/18 07:00 98.9 F 85 17 97/60 L Consultations:: List each consultation separately and include: 1. Reason for request. 2. Findings. 3. Follow-up Consultations: Medical consult appreciated Summary of Hospital Course include:: 1. Description of specific treatment plan utilized for patients during their course of treatmen. 2. Summarize the time- course for resolution of acute symptoms and/or regressed behaviors. 3. Describe issues identified and worked on during hospitalization. 4. Describe medication utilized. 5. Describe medical problems identified and treated. 6. Reassessment of suicide risk Summary of Hospital Course: Patient is a 53-year-old white female with a psychiatric history of bipolar disorder, panic disorder disorder and borderline personality disorder, numerous psychiatric admissions, more than 200 prior suicide attempts [per patient], history of ECT in [place], numerous failed medication trials, currently under care of [facility] at [facility], reportedly compliant with her meds, was admitted to the medical floor s/p overdose on Lamictal, thorazine, alcohol, was medically stable, was transferred for further evaluation stabilization and medication adjustment. Please see consultation/admission notes for more detailed information. pt was observed on the psychiatric inpatient unit for the past 72 hrs, initially patient presented to be irritable, angry, was arguing with the nurses, but for the past 24 hours patient presented very well, patient's medications were adjusted. Trazodone was discontinued, Cogentin was discontinued, Effexor was discontinued. Patient was continued on Lamictal 200 mg twice a day for mood stabilization Klonopin was confirmed and continued at 1 mg at the morning 20 mg at the nighttime for anxiety This script writer implemented Remeron for depression and insomnia 15 mg at the nighttime Thorazine was continued 100 mg at the nighttime for mood stabilization Patient tolerated medications well, no side effects observed or reported, aims 0, no EPS. Overall patient improved significantly, has future oriented plans, patient was to address her housing situation, patient also wants to become spiritual again, patient was looking forward to resume attending [employer] on Sundays, patient also reports improved appetite and sleep. Patient reached maximum effect from this acute psychiatric hospitalization, deemed ready for discharge. As per nursing report the patient was more visible in the unit, was attending groups, medication compliant, no agitation or aggression. At the time of the discharge patient was considered to pose no imminent danger to self or others, will be following up at [facility], information about follow up appointment, time and address provided to the pt, (see note for more detailed information). It is a patient respons ibility to follow up with outpatient clinic, PMD as well as specialists In case patient will need to obtain results of studies pending at discharge, patient was provided with contact information of Psychiatric Inpatient unit [phone] as well as Medical Record Department [phone], as well as [facility] team [phone]. Nicotine patch was provided Naltrexone treatment is not indicated at this time, UDS was positive for opioids in ED counseling about smoking and alcohol cessation provided AA meetings as well as smoking cessation treatment program information was provided by the pt was provided with prescriptions see medication reconciliation form Pt was educated about safety plan in case of worsening of symptoms or in case of suicidal or homicidal ideation call 911 or go to the nearest ER, also was educated to take meds as prescribed and stay away from drugs, pt verbalized understanding. Vital Signs Temp Pulse Resp BP 11/21/18 07:00 98.9 F 85 17 97/60 L - Diagnosis (1) Bipolar disorder Status: Chronic Priority: High (2) Borderline personality disorder Status: Chronic Priority: High (3) Substance abuse Status: Chronic Priority: High - Final Diagnosis (DSM 5) Condition upon Discharge: GOOD Disposition: HOME/ ROUTINE Follow-up Treatment Plan: At the time of the discharge patient was considered to pose no imminent danger to self or others, will be following up at [facility], information about follow up appointment, time and address provided to the pt, (see note for more detailed information). It is a patient responsibility to follow up with outpatient clinic, PMD as well as specialists In case patient will need to obtain results of studies pending at discharge, patient was provided with contact information of Psychiatric Inpatient unit [phone] as well as Medical Record Department [phone], as well as [facility] team [phone]. Nicotine patch was provided Naltrexone treatment is not indicated at this time, UDS was positive for opioids in ED counseling about smoking and alcohol cessation provided AA meetings as well as smoking cessation treatment program information was provided by the pt was provided with prescriptions see medication reconciliation form, the rest of meds pt has 1RF and supply at home Pt was educated about safety plan in case of worsening of symptoms or in case of suicidal or homicidal ideation call 911 or go to the nearest ER, also was educated to take meds as prescribed and stay away from drugs, pt verbalized understanding. Prescriptions/Medication Reconciliation: Mirtazapine [Remeron] 15 mg PO HS #14 tab Nicotine 14 mg/24 hr [Nicoderm CQ] 1 patch TD DAILY #14 patch - Tobacco Cessation Tobacco Use Status for the last 30 days: Heavy User(>=5 cigs &/or cigars/pipes daily) Tobacco Use Treatment Practical Counseling Provided: Yes Tobacco Use Treatment FDA-Approved Cessation Medication Provided: Yes Type of Medication Provided: Nicoderm CQ Smoking Cessation Prescription was given: Yes - Alcohol or Substance Abuse Does the patient have an Alcohol or Substance Abuse Disorder: Yes A prescription for an FDA-approved medication for alcohol and drug dependence was given to the patient at discharge: No If no,reason for not providing: pt refused - Antipsychotic Medications Pt discharged on 2 or more routine antipsychotic medications: No
== END 2018-11-23 13:26 | disposition home or self-care (01) | DRG 430 ==
LOC: PSYC 15:37
PROVIDERS: ADMIT Psychiatry & Neurology Psychiatry; ATTEND Psychiatry & Neurology Psychiatry
DX: F31.9 Bipolar disorder, unspecified (principal); J43.9 Emphysema, unspecified; F19.10 Other psychoactive substance abuse, uncomplicated; F60.3 Borderline personality disorder; F41.0 Panic disorder [episodic paroxysmal anxiety]; G47.00 Insomnia, unspecified; F10.129 Alcohol abuse with intoxication, unspecified; F17.210 Nicotine dependence, cigarettes, uncomplicated; F41.1 Generalized anxiety disorder; K21.9 Gastro-esophageal reflux disease without esophagitis; Z79.899 Other long term (current) drug therapy; Z90.49 Acquired absence of other specified parts of digestive tract